=== PATIENT | female | born 1990 | race Caucasian/White ===

== ENCOUNTER 2023-03-04 09:18 | Emergency (ER) | payer OTHER, SELFPAY ==
[2023-03-04 09:24] VITALS: BP 121/64; BP 138/88; PULSE 63; PULSE 85; RESP 20; TEMP 36.2; TEMP 36.3; O2SAT 100; O2SAT 98
--- NOTE | 2023-03-04 09:55 | ED.URI ---
HPI - URI/Sore Throat General Chief Complaint: Upper Respiratory Infection Stated Complaint: Sore Throat/Cough Time Seen by Provider: 03/04/23 09:56 History of Present Illness HPI Narrative: 32-year-old female presents for complaint of sore throat, fatigue, decreased appetite over the last few days. Endorses some sinus congestion and drainage. Denies vomiting, diarrhea, fevers or chills. Not taking anything for symptoms. Denies sick contacts. Related Data Home Medications Medication Instructions Recorded Confirmed escitalopram oxalate 20 mg tablet mg 03/04/23 lamotrigine 200 mg tablet mg 03/04/23 levetiracetam 500 mg tablet mg PO 03/04/23 oxazepam 10 mg capsule mg 03/04/23 phentermine 11.25 mg-topiramate ER cap PO 03/04/23 69 mg capsule,[id number] mphas (Qsymia) propranolol 20 mg tablet mg 03/04/23 Allergies Allergy/AdvReac Type Severity Reaction Status Date / Time codeine Allergy Mild Other Verified 03/04/23 09:37 Review of Systems Review of Systems: CONSTITUTIONAL: reports fatigue Denies body aches, fever, chills, or sweats. EYES: Denies visual changes, redness, or discharge. ENT: Reports rhinorrhea, sore throat CARDIOVASCULAR: Denies chest pain, palpitations, or edema. RESPIRATORY: Denies dyspnea. GASTROINTESTINAL: Denies abdominal pain, nausea, vomiting, or diarrhea. SKIN: Denies rash, itching, or wounds. MUSCULOSKELETAL: Denies back pain, joint pain, or myalgia. NEUROLOGIC: Denies headache PMFSH Past Medical History Medical History (Updated 03/04/23 @ 10:03 by Ranjana Ramirez, [employer]) No pertinent past medical history Exam Narrative: GENERAL: well-appearing, no acute distress. EYES: conjunctivae clear ENT: Mucous membranes moist. TM pearly licona with normal light reflex bilaterally; no tragal tenderness. Oropharynx mildly erythematous Tonsils enlarged 2+ without exudate. No drooling, no hoarseness, no trismus, uvula midline. No tripod positioning, hot potato voice, or soft palate swelling. NECK: Supple. No lymphadenopathy CHEST: Clear to auscultation, breath sounds equal. No respiratory distress, speaks in full sentences. HEART: Regular rate and rhythm. No murmur heard. SKIN: Warm, dry, no rash. NEURO: Alert and oriented x3. Course Course Emergency Course: Patient is aware of diagnosis, understands and agrees to treatment plan. Anticipatory guidance given. Patient agrees to follow-up as directed and is aware of reasons to seek care at the emergency department. Portions of this record may have been created with voice recognition software Level of Care: Express Care Visit Vital Signs Vital signs: Vital Signs Temperature 97.1 F L 03/04/23 09:24 Pulse Rate 63 03/04/23 09:24 Respiratory Rate 20 03/04/23 09:24 Blood Pressure 121/64 03/04/23 09:24 Pulse Oximetry 98 03/04/23 09:24 Oxygen Delivery Room Air 03/04/23 09:24 Temperature 97.1 F L 03/04/23 09:24 Pulse Rate 85 03/04/23 09:24 Respiratory Rate 20 03/04/23 09:24 Blood Pressure 157/96 H 03/04/23 09:24 Pulse Oximetry 100 03/04/23 09:24 Oxygen Delivery Room Air 03/04/23 09:24 MDM - URI/Sore Throat MDM Narrative Medical decision making narrative: POS strep result reviewed with pt. Advise supportive treatments. Patient is appropriate for outpatient treatment and follow-up. Differential Diagnosis Differential diagnosis: Likely upper respiratory infection, viral infection and pharyngitis Lab Data Labs: Strep Screen Positive Group A Strep *(Reference Range: Negative)* Discharge Plan Discharge Clinical Impression: Strep pharyngitis Patient Disposition: Home, Self-Care Condition: Stable Instructions: Antibiotic Form, Strep Throat (ED) Additional Instructions: - Take the antibiotic as directed. Fever and sore throat typically resolve within one to three days. Most patients c
== END 2023-03-04 10:05 | disposition home or self-care (01) ==
PROVIDERS: Emergency Provider Nurse Practitioner Family
DX: J02.0 Streptococcal pharyngitis (principal)
CPT/HCPCS: 87880; 99213; G0463

== ENCOUNTER 2023-05-28 14:19 | Emergency (ER) | payer OTHER, SELFPAY ==
[2023-05-28 14:24] VITALS: BP 122/76; PULSE 70; RESP 18; TEMP 36.4; O2SAT 98
--- NOTE | 2023-05-28 14:29 | ED.URI ---
HPI - URI/Sore Throat General Chief Complaint: Upper Respiratory Infection Stated Complaint: Shortness of Breath/Chest Pain Time Seen by Provider: 05/28/23 14:33 Source: patient, RN notes reviewed and old records reviewed Mode of arrival: ambulatory Limitations: no limitations History of Present Illness HPI Narrative: 32 year year old female who presents to [facility] with complaints of having some shortness of breath last night and again this morning, cough, headache, just feels like she can't take a deep breath.Patient is laughing and talking in full sentences when she first arrived. Patient states that she has had history of bronchial asthma in the past and use to have an inhaler. Patient reports that she moved back from [facility] and since then her allergies are worse. Patient denies any temperatures, chills or sweats or any body aches, reports no ear pain,or sore throat.Patient reports that she has taken Ibuprofen and also taken some Sudafed. MD elicited complaint: cough, rhinorrhea, nasal congestion and other (short of breath) Pertinent past history: asthma (history bronchial asthma) Onset (ago): day(s) ( since last night) Severity: mild Able to tolerate fluids by mouth: Yes Treatments prior to arrival: ibuprofen and other (Sudafed) Related Data Home Medications Medication Instructions Recorded Confirmed escitalopram oxalate 20 mg tablet 20 mg PO DAILY 03/04/23 05/28/23 lamotrigine 200 mg tablet 200 mg PO BID 03/04/23 05/28/23 levetiracetam 500 mg tablet 500 mg PO BID 03/04/23 05/28/23 oxazepam 10 mg capsule 10 mg PO TID 03/04/23 05/28/23 propranolol 20 mg tablet 20 mg PO QID 03/04/23 05/28/23 pantoprazole 40 mg tablet,delayed 40 mg PO DAILY PRN Heartburn 05/28/23 05/28/23 release phentermine 15 mg capsule 15 mg PO DAILY 05/28/23 05/28/23 topiramate 25 mg tablet 25 mg PO BID 05/28/23 05/28/23 Allergies Allergy/AdvReac Type Severity Reaction Status Date / Time codeine AdvReac Mild Nausea and Verified 05/28/23 14:32 Vomiting Review of Systems Review of Systems: CONSTITUTIONAL: Denies malaise, chills, sweats, or fever. EYES: Denies visual changes, redness, or discharge. ENT: Reports rhinorrhea, congestion, no sinus pain,no otalgia and no sore throat. CARDIOVASCULAR: Reports no chest pain, palpitations, or edema. RESPIRATORY: Reports cough.?Associated episodes of dyspnea. GASTROINTESTINAL: Denies abdominal pain, nausea, vomiting, diarrhea SKIN: Denies rash or itching. MUSCULOSKELETAL: Denies myalgia. NEUROLOGIC: Reports headache. All systems reviewed & are unremarkable except as noted in HPI and below PMFSH Past Medical History Medical History (Updated 05/29/23 @ 13:33 by Maira Bond NP) Anxiety Hiatal hernia Juvenile myoclonic epilepsy Surgical History Surgical History (Updated 05/29/23 @ 13:27 by Maira Bond NP) History of cholecystectomy Previous section Social History Social History (Updated 05/29/23 @ 13:26 by Maira Bond NP) Smoking status: Never smoker Alcohol intake: current Alcohol use details: rare use Substance use type: does not use Gender identity (if verbalized by the patient): Female Comments At time of signature, agree with nursing past medical, surgical, social and family history. There is no relevant family history pertinent to the presenting complaint Exam Narrative: GENERAL: Well-appearing, well-nourished, and in no acute distress. HEAD: Normocephalic EYES: PERRLA, conjunctivae clear ENT: Nares clear, turbinates edematous and erythematous, clear discharge. Mucous membranes moist. TM pearly licona with dull light reflex bilaterally; no tragal tenderness. Oropharynx erythematous without lesions. Tonsils not enlarged and without exudate, no drooling, no hoarseness, no trismus, uvula midline. NECK: Supple. No lymphadenopathy CHEST: Clear to auscultation, breath sounds equal. No wheezing, rhonchi, rales
== END 2023-05-28 14:55 | disposition home or self-care (01) ==
PROVIDERS: Emergency Provider Registered Nurse
DX: J06.9 Acute upper respiratory infection, unspecified (principal); Z79.899 Other long term (current) drug therapy
CPT/HCPCS: 99213; G0463

== ENCOUNTER 2023-06-24 08:46 | Emergency (ER) | payer OTHER, SELFPAY ==
[2023-06-24 08:56] VITALS: BP 121/59; PULSE 88; RESP 20; TEMP 36.8; O2SAT 98
--- NOTE | 2023-06-24 08:56 | ED.URI ---
HPI - URI/Sore Throat General Chief Complaint: Upper Respiratory Infection Stated Complaint: Sore Throat Time Seen by Provider: 06/24/23 08:56 Source: patient, RN notes reviewed and old records reviewed Mode of arrival: ambulatory Limitations: no limitations History of Present Illness HPI Narrative: [age] year female who presents to [facility] with complaints of sore throat, runny nose with sinus congestion, and occasional cough for 3 day duration.Patient reports that she has no fevers, chills or sweats, denies any shortness of breath. Patient reports that she has had some cough at night with noted sinus congestion, drainage and facial pressure.Patient reports that she has been taking Ibuprofen, Mucinex, and also some Tessalon Perles. MD elicited complaint: sore throat, rhinorrhea and nasal congestion Pertinent past history: seasonal allergies and other (strep throat) Onset (ago): day(s) (3) Consistency: constant Severity: moderate Pain scale (0-10): 6 Able to tolerate fluids by mouth: Yes Exacerbating factors: swallowing Treatments prior to arrival: ibuprofen and other (Tessalon Perles and Mucinex) Related Data Home Medications Medication Instructions Recorded Confirmed escitalopram oxalate 20 mg tablet 20 mg PO DAILY 03/04/23 06/24/23 lamotrigine 200 mg tablet 200 mg PO BID 03/04/23 06/24/23 levetiracetam 500 mg tablet 500 mg PO BID 03/04/23 06/24/23 oxazepam 10 mg capsule 10 mg PO TID 03/04/23 06/24/23 propranolol 20 mg tablet 20 mg PO QID 03/04/23 06/24/23 pantoprazole 40 mg tablet,delayed 40 mg PO DAILY PRN Heartburn 05/28/23 06/24/23 release phentermine 15 mg capsule 15 mg PO DAILY 05/28/23 06/24/23 topiramate 25 mg tablet 25 mg PO BID 05/28/23 06/24/23 Allergies Allergy/AdvReac Type Severity Reaction Status Date / Time codeine AdvReac Mild Nausea and Verified 06/24/23 09:00 Vomiting Review of Systems Review of Systems: CONSTITUTIONAL: Denies malaise, chills, sweats, or fever. EYES: Denies visual changes, redness, or discharge. ENT: Reports rhinorrhea, congestion, sinus pain, nootalgia and positive sore throat. CARDIOVASCULAR: Denies chest pain, palpitations, or edema. RESPIRATORY: Reports some cough.? Denies dyspnea. GASTROINTESTINAL: Denies abdominal pain, nausea, vomiting, diarrhea SKIN: Denies rash or itching. MUSCULOSKELETAL: Denies myalgia. NEUROLOGIC: Denies headache. All systems reviewed & are unremarkable except as noted in HPI and below PMFSH Past Medical History Medical History Anxiety Hiatal hernia Juvenile myoclonic epilepsy Surgical History Surgical History History of cholecystectomy Previous section Social History Social History Smoking status: Never smoker Alcohol intake: current Alcohol use details: rare use Substance use type: does not use Gender identity (if verbalized by the patient): Female Comments At time of signature, agree with nursing past medical, surgical, social and family history. There is no relevant family history pertinent to the presenting complaint Exam Narrative: GENERAL: Well-appearing, well-nourished, and in no acute distress. HEAD: Normocephalic EYES: PERRLA, conjunctivae clear ENT: Nares clear, turbinates edematous and erythematous, clear discharge. Mucous membranes moist. TM pearly licona with dull light reflex bilaterally; no tragal tenderness. Oropharynx erythematous without lesions. Tonsils enlarged and without exudate, no drooling, no hoarseness, no trismus, uvula midline. NECK: Supple. No lymphadenopathy CHEST: Clear to auscultation, breath sounds equal. No wheezing, rhonchi, rales, or stridor. No respiratory distress, speaks in full sentences.SAO2 98% on room air HEART: Regular rate and rhythm. No murmur heard. SKIN: Warm,
== END 2023-06-24 09:25 | disposition home or self-care (01) ==
PROVIDERS: Emergency Provider Registered Nurse
DX: J06.9 Acute upper respiratory infection, unspecified (principal); J02.9 Acute pharyngitis, unspecified; F41.9 Anxiety disorder, unspecified
CPT/HCPCS: 87081; 87880; 99213; G0463

== ENCOUNTER 2023-08-18 14:04 | Emergency (ER) | payer MEDICAID, SELFPAY ==
--- NOTE | 2023-08-18 14:14 | ED.GENADULT ---
HPI - General Adult General Chief complaint: Upper Respiratory Infection Stated complaint: wheezing/coughing till throat sore Source: patient, RN notes reviewed and old records reviewed Mode of arrival: ambulatory Limitations: no limitations History of Present Illness HPI narrative: 32-year-old female presents to [facility] with complaint of cough, congestion this started 10 days ago. Patient states had Z-Joselito for when she had the flu that she started approximately 7 days ago. Patient states took as directed but is still not improving. Patient states he is worried because she has coughing fits the cause shortness of breath. Related Data Home Medications Medication Instructions Recorded Confirmed escitalopram oxalate 20 mg tablet 20 mg PO DAILY 03/04/23 08/18/23 lamotrigine 200 mg tablet 200 mg PO BID 03/04/23 08/18/23 levetiracetam 500 mg tablet 500 mg PO BID 03/04/23 08/18/23 oxazepam 10 mg capsule 10 mg PO TID 03/04/23 08/18/23 propranolol 20 mg tablet 20 mg PO QID 03/04/23 08/18/23 pantoprazole 40 mg tablet,delayed 40 mg PO DAILY PRN Heartburn 05/28/23 08/18/23 release phentermine 15 mg capsule 15 mg PO DAILY 05/28/23 08/18/23 topiramate 25 mg tablet 25 mg PO BID 05/28/23 08/18/23 dextroamphetamine-amphetamine 5 mg 1 tablet PO BID 08/18/23 08/18/23 tablet hydroxyzine HCl 25 mg tablet 25 mg PO Q6H PRN Anxiety 08/18/23 08/18/23 Allergies Allergy/AdvReac Type Severity Reaction Status Date / Time codeine AdvReac Mild Nausea and Verified 08/18/23 14:24 Vomiting Review of Systems Constitutional: Constitutional: Reports no additional constitutional complaints, Denies body ache(s), Denies chills, Denies fatigue, Denies fever(s) and Denies headache(s) Eyes: Eyes: Reports no additional eye complaints and Denies blurry vision ENT: Reports system reviewed and no additional complaints, except as documented, Denies vertigo, Denies dizziness, Denies ear discharge, Denies otalgia, Denies facial pain, Denies headache(s), Reports nasal congestion, Reports nasal discharge, Denies sinus pain, Denies sinus pressure and Denies sore throat Cardiovascular: Cardiovascular: Reports no additional cardiovascular complaints, Denies chest pain, Denies chest pain at rest, Denies rapid heart rate and Denies dyspnea Respiratory: Respiratory: Reports no additional respiratory complaints, Reports chest congestion, Reports cough, Denies pain on inspiration, Denies pain with cough and Denies dyspnea Gastrointestinal: Gastrointestinal: Denies abdominal pain, Denies diarrhea, Denies nausea and Denies vomiting Integumentary/Breasts: Skin/Breast: Denies rash Neurologic: Reports system reviewed and no additional complaints, except as documented, Denies vertigo, Denies dizziness and Denies headache(s) Endocrine: Endocrine: Denies fatigue PMFSH Past Medical History Medical History Anxiety Hiatal hernia Juvenile myoclonic epilepsy Surgical History Surgical History History of cholecystectomy Previous section Social History Social History Smoking status: Never smoker Alcohol intake: current Alcohol use details: rare use Substance use type: does not use Gender identity (if verbalized by the patient): Female Comments At the time of my signature, I reviewed and agree with the nursing past medical, surgical, social, and family history. There is no relevant family history pertinent to the patient complaint. Exam Const: General: cooperative, healthy appearing, no acute distress and well nourished Nutritional Appearance: well nourished Orientation/consciousness: patient oriented x3 Limitations: no limitations HENMT: Head: normal to inspection and normocephalic Ears: external ears normal, TM's normal bilaterally, mastoids normal and Abnormal EAC present Fa
[2023-08-18 14:15] VITALS: BP 122/71; PULSE 64; RESP 18; TEMP 36.7; O2SAT 100
== END 2023-08-18 14:30 | disposition home or self-care (01) ==
PROVIDERS: Emergency Provider Registered Nurse; PCP Physician Assistant
DX: J40 Bronchitis, not specified as acute or chronic (principal); F41.9 Anxiety disorder, unspecified; G40.B09 Juvenile myoclonic epilepsy, not intractable, without status epilepticus
CPT/HCPCS: 99213; G0463

== ENCOUNTER 2023-09-09 09:17 | Emergency (ER) | payer MEDICAID, SELFPAY ==
[2023-09-09 09:24] VITALS: BP 128/71; PULSE 57; RESP 16; TEMP 36.8; O2SAT 99
--- NOTE | 2023-09-09 09:48 | ED.GENADULT ---
HPI - General Adult General Chief complaint: Upper Respiratory Infection Stated complaint: throat/achey/fatigue Source: patient Mode of arrival: ambulatory Limitations: no limitations History of Present Illness HPI narrative: Patient presents for evaluation of sick symptoms since last night. Symptoms include sinus congestion, sore throat, right sided cervical lymphadenopathy and occasional cough. No fever, chills, nausea, vomiting, diarrhea. She took ibuprofen for her symptoms. She is currently caring for her stepfather who is currently on hospice. Related Data Home Medications Medication Instructions Recorded Confirmed escitalopram oxalate 20 mg tablet 20 mg PO DAILY 03/04/23 08/18/23 lamotrigine 200 mg tablet 200 mg PO BID 03/04/23 08/18/23 levetiracetam 500 mg tablet 500 mg PO BID 03/04/23 08/18/23 oxazepam 10 mg capsule 10 mg PO TID 03/04/23 08/18/23 propranolol 20 mg tablet 20 mg PO QID 03/04/23 08/18/23 pantoprazole 40 mg tablet,delayed 40 mg PO DAILY PRN Heartburn 05/28/23 08/18/23 release phentermine 15 mg capsule 15 mg PO DAILY 05/28/23 08/18/23 topiramate 25 mg tablet 25 mg PO BID 05/28/23 08/18/23 dextroamphetamine-amphetamine 5 mg 1 tablet PO BID 08/18/23 08/18/23 tablet hydroxyzine HCl 25 mg tablet 25 mg PO Q6H PRN Anxiety 08/18/23 08/18/23 Allergies Allergy/AdvReac Type Severity Reaction Status Date / Time codeine AdvReac Mild Nausea and Verified 08/18/23 14:24 Vomiting Review of Systems Review of Systems: CONSTITUTIONAL: Denies fever, chills, or sweats. EYES: Denies visual changes, redness, or discharge. ENT: Reports sinus congestion, sore throat, right-sided cervical lymphadenopathy. CARDIOVASCULAR: Denies chest pain, palpitations, or edema. RESPIRATORY: Reports occasional cough. Denies SOB GASTROINTESTINAL: Denies abdominal pain, nausea, vomiting, or diarrhea. GENITOURINARY: Denies dysuria or hematuria. SKIN: Denies rash or itching. MUSCULOSKELETAL: Denies back pain, joint pain, or myalgia. NEUROLOGIC: Denies headache, numbness, dizziness, or weakness. PSYCHIATRIC: Denies anxiety or depression. [facility] Past Medical History Medical History Anxiety Hiatal hernia Juvenile myoclonic epilepsy Surgical History Surgical History History of cholecystectomy Previous section Family History Family History Mother Family history non-contributory Social History Social History Smoking status: Never smoker Alcohol intake: current Alcohol use details: rare use Substance use type: does not use Gender identity (if verbalized by the patient): Female Exam Narrative: GENERAL: Well-appearing, well-nourished, and in no acute distress. HEAD: Normocephalic, atraumatic. EYES: PERRLA and EOMI. ENT: Nares clear, no rhinorrhea or epistaxis. Mucous membranes moist. Oropharynx without tonsillar hypertrophy exudate or other lesions. Mild tympanic membrane erythema bilaterally NECK: Supple. No adenopathy or masses. No carotid bruits or JVD CHEST: Clear to auscultation. No respiratory distress. No wheezes rales or rhonchi HEART: Regular rate and rhythm. No murmur heard. Normal peripheral pulses. ABDOMEN: Soft, nontender, nondistended, normal active bowel sounds. EXTREMITIES: Normal range of motion. No edema. SKIN: Warm, dry, no rash. NEURO: No focal deficits. Alert and oriented x3. PSYCH: Normal mood and affect. Course Course Emergency Course: This is a 32-year-old female who presented for evaluation of sick symptoms. Strep here positive. Influenza and COVID negative. Will treat with amoxicillin. Increase hydration. Provided with education regarding infection transmission. Follow up with primary provider. Go to the ER for worse
== END 2023-09-09 10:15 | disposition home or self-care (01) ==
PROVIDERS: Emergency Provider Nurse Practitioner; PCP Physician Assistant
DX: J02.0 Streptococcal pharyngitis (principal); Z20.822 Contact with and (suspected) exposure to COVID-19; F41.9 Anxiety disorder, unspecified; G40.B09 Juvenile myoclonic epilepsy, not intractable, without status epilepticus
CPT/HCPCS: 87426; 87804; 87880; 99213; G0463

== ENCOUNTER 2023-10-20 08:06 | Emergency (ER) | payer BC, SELFPAY ==
[2023-10-20 08:14] VITALS: BP 118/64; PULSE 55; RESP 20; TEMP 36.7; O2SAT 100
--- NOTE | 2023-10-20 08:14 | ED.URI ---
HPI - URI/Sore Throat General Chief Complaint: Upper Respiratory Infection Stated Complaint: Cough Time Seen by Provider: 10/20/23 08:21 Source: patient, RN notes reviewed and old records reviewed Mode of arrival: ambulatory Limitations: no limitations History of Present Illness HPI Narrative: 33 year old female who presents to [facility] care with complaints of diarrhea and some nausea and vomiting on Friday and Friday and nasal drainage. Patient reports those symptoms have resolved except for the nasal congestion and drainage and started with progressively worsening cough, Ptient reports no shortness of breath or any fevers, states that her cough is worse at night. Patient has taken Robitussin and used OTC nasal spray for her symptoms. MD elicited complaint: cough, rhinorrhea and nasal congestion Pertinent past history: other (bronchitis) Severity: mild Able to tolerate fluids by mouth: Yes Treatments prior to arrival: other (Robitussin , nasal spray) Related Data Home Medications Medication Instructions Recorded Confirmed escitalopram oxalate 20 mg tablet 20 mg PO DAILY 03/04/23 08/18/23 lamotrigine 200 mg tablet 200 mg PO BID 03/04/23 08/18/23 levetiracetam 500 mg tablet 500 mg PO BID 03/04/23 08/18/23 oxazepam 10 mg capsule 10 mg PO TID 03/04/23 08/18/23 propranolol 20 mg tablet 20 mg PO QID 03/04/23 08/18/23 pantoprazole 40 mg tablet,delayed 40 mg PO DAILY PRN Heartburn 05/28/23 08/18/23 release phentermine 15 mg capsule 15 mg PO DAILY 05/28/23 08/18/23 topiramate 25 mg tablet 25 mg PO BID 05/28/23 08/18/23 dextroamphetamine-amphetamine 5 mg 1 tablet PO BID 08/18/23 08/18/23 tablet hydroxyzine HCl 25 mg tablet 25 mg PO Q6H PRN Anxiety 08/18/23 08/18/23 Allergies Allergy/AdvReac Type Severity Reaction Status Date / Time codeine AdvReac Mild Nausea and Verified 08/18/23 14:24 Vomiting Review of Systems Review of Systems: CONSTITUTIONAL: Denies malaise, chills, sweats, or fever. EYES: Denies visual changes, redness, or discharge. ENT: Reports rhinorrhea, congestion, sinus pain,no otalgia and no sore throat. CARDIOVASCULAR: Denies chest pain, palpitations, or edema. RESPIRATORY: Reports cough.? Denies dyspnea. GASTROINTESTINAL: Denies abdominal pain, nausea, vomiting, diarrhea earlier but has resolved SKIN: Denies rash or itching. MUSCULOSKELETAL: Denies myalgia. NEUROLOGIC: Denies headache. All systems reviewed & are unremarkable except as noted in HPI and below PMFSH Past Medical History Medical History Anxiety Hiatal hernia Juvenile myoclonic epilepsy Surgical History Surgical History History of cholecystectomy Previous section Family History Family History Mother Family history non-contributory Social History Social History Smoking status: Never smoker Alcohol intake: current Alcohol use details: rare use Substance use type: does not use Gender identity (if verbalized by the patient): Female Comments At time of signature, agree with nursing past medical, surgical, social and family history. There is no relevant family history pertinent to the presenting complaint Exam Narrative: GENERAL: Well-appearing, well-nourished, and in no acute distress. HEAD: Normocephalic EYES: PERRLA, conjunctivae clear ENT: Nares clear, turbinates edematous and erythematous, clear discharge. Mucous membranes moist. TM pearly licona with dull light reflex bilaterally; no tragal tenderness. Oropharynx erythematous without lesions. Tonsils not enlarged and without exudate, no drooling, no hoarseness, no trismus, uvula midline.post nasal drainage NECK: Supple. No lymphadenopathy CHEST: Clear to auscultation, breath sounds equal. No wheezing, rhonchi,
== END 2023-10-20 08:38 | disposition home or self-care (01) ==
PROVIDERS: Emergency Provider Registered Nurse; PCP Physician Assistant
DX: J06.9 Acute upper respiratory infection, unspecified (principal); F41.9 Anxiety disorder, unspecified; G40.B09 Juvenile myoclonic epilepsy, not intractable, without status epilepticus
CPT/HCPCS: 99213; G0463

== ENCOUNTER 2023-11-06 14:24 | Emergency (ER) | payer OTHER, BC, SELFPAY ==
[2023-11-06 14:32] VITALS: BP 106/69; PULSE 72; RESP 16; TEMP 36.8; O2SAT 100
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
== END 2023-11-06 15:10 | disposition short-term general hospital (02) ==
PROVIDERS: Emergency Provider Nurse Practitioner Family; PCP Physician Assistant
DX: S06.0X0A Concussion without loss of consciousness, initial encounter (principal); V44.5XXA Car driver injured in collision with heavy transport vehicle or bus in traffic accident, initial encounter; S13.4XXA Sprain of ligaments of cervical spine, initial encounter; H53.8 Other visual disturbances; S16.1XXA Strain of muscle, fascia and tendon at neck level, initial encounter; F41.9 Anxiety disorder, unspecified; G40.B09 Juvenile myoclonic epilepsy, not intractable, without status epilepticus
CPT/HCPCS: 99212; G0463

== ENCOUNTER 2023-11-06 16:14 | Emergency (ER) | payer OTHER, BC, SELFPAY ==
[2023-11-06 16:27] VITALS: BP 112/81; PULSE 69; RESP 18; TEMP 36.6; O2SAT 100
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
== END 2023-11-06 17:48 | disposition home or self-care (01) ==
LOC: ANHED 17:39
PROVIDERS: Emergency Provider Physician Assistant; PCP Physician Assistant
DX: S13.4XXA Sprain of ligaments of cervical spine, initial encounter (principal); S06.0X0A Concussion without loss of consciousness, initial encounter; G40.B09 Juvenile myoclonic epilepsy, not intractable, without status epilepticus; F41.9 Anxiety disorder, unspecified; Z90.49 Acquired absence of other specified parts of digestive tract; Z79.84 Long term (current) use of oral hypoglycemic drugs; V44.5XXA Car driver injured in collision with heavy transport vehicle or bus in traffic accident, initial encounter
CPT/HCPCS: 99282

== ENCOUNTER 2023-11-11 14:04 | Emergency (ER) | payer OTHER, BC, SELFPAY ==
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
[2023-11-11 14:24] VITALS: BP 115/72; PULSE 63; RESP 18; TEMP 36.3; O2SAT 95
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
[2023-11-11 16:04] LABS: Basophils Percent Auto 0.4 % (0.2-1.2); Eosinophils Absolute Auto 0.1 K/mm3 (0-0.3); Eosinophils Percent Auto 1.1 % (0-4.4); Hematocrit 39.4 % (37.0-47.0); Hemoglobin 13.2 g/dL (12.0-15.0); Immature Granulocyte Absolute 0.02 K/mm3 (0.00-0.031); Immature Granulocyte Percent A 0.2 % (0-0.5); Lymphocytes Absolute Auto 2.98 K/mm3 (0.9-3.2); Lymphocytes Percent Auto 36.8 % (18.3-44.2); Mean Corpuscular HGB Conc 33.5 g/dl (32-36); Mean Corpuscular Hemoglobin 32.4 pg (26-34); Mean Corpuscular Volume 96.6 fl (80-100); Mean Platelet Volume 9.7 fl (7.4-10.4); Monocytes Absolute Auto 0.5 K/mm3 (0.1-0.6); Monocytes Percent Auto 5.8 % (2.6-8.5); Neutrophils Absolute Auto 4.5 K/mm3 (1.3-6.7); Neutrophils Percent Auto 55.7 % (45.5-73.1); Platelet Count Result 320 k/mm3 (150-375); Red Blood Count 4.08 M/mm3 (4.2-5.4); Red Cell Distribution Width 13.1 % (11.5-14.5); White Blood Count 8.1 K/mm3 (4.5-10.0)
[2023-11-11 16:18] LABS: Alanine Aminotransferase 15 U/L (6-35); Albumin Level 4.2 g/dL (3.5-5.1); Alkaline Phosphatase 47 U/L (38-126); Anion Gap 7 mmol/L (4-12); Aspartate Amino Transferase 19 U/L (14-36); Bilirubin,Total 0.7 mg/dL (0.2-1.3); Blood Urea Nitrogen 13 mg/dL (7-17); Calcium 9.4 mg/dL (8.4-10.2); Carbon Dioxide 22 mmol/L (22-30); Chloride 107 mmol/L (98-107); Estimated Glomerular Filt Rate > 60; Glucose 101 mg/dL (65-110); Lipase 77 U/L (23-300); Potassium 4.2 mmol/L (3.4-5.0); Sodium 136 mmol/L (137-145)
[2023-11-11 16:25] LABS: Add Urine Microscopic? NO; Appearance Urine Clear (Clear); Bilirubin Urine 1+ (Negative); Blood Urine Negative (Negative); Glucose Urine UA Negative (Negative); Ketones Urine Negative (Negative); Leukocyte Esterase Ur Negative LEU/UL (Negative); Nitrate Urine Negative (Negative); Protein Urine Negative (Negative)
--- NOTE | 2023-11-11 16:30 | PC.NURSE ---
Pt denies any c/o h/a at this time. States is feeling better & doesn't want to stay. Dr. Wilkerson spoke with pt.
[2023-11-11 16:31] LABS: Color Urine Yellow (Yellow); Specific Grav Ur >= 1.030 (1.001-1.035)
[2023-11-11 16:51] VITALS: BP 110/70; PULSE 68; RESP 18; TEMP 36.6; O2SAT 100
== END 2023-11-11 17:00 | disposition home or self-care (01) ==
LOC: ANHED 18:16
PROVIDERS: Nurse Practitioner Family; Emergency Provider Emergency Medicine; PCP Physician Assistant
DX: S06.0XAA Concussion with loss of consciousness status unknown, initial encounter (principal); G40.B09 Juvenile myoclonic epilepsy, not intractable, without status epilepticus; F41.9 Anxiety disorder, unspecified; Z90.49 Acquired absence of other specified parts of digestive tract; M47.816 Spondylosis without myelopathy or radiculopathy, lumbar region; V44.5XXA Car driver injured in collision with heavy transport vehicle or bus in traffic accident, initial encounter
CPT/HCPCS: 36415; 70450; 71111; 72131; 80053; 81003; 81025; 83690; 85025; 99284

== ENCOUNTER 2024-06-13 17:38 | Emergency (ER) | payer SELFPAY ==
[2024-06-13 17:47] VITALS: BP 111/60; PULSE 62; RESP 16; TEMP 36.7; O2SAT 99
--- NOTE | 2024-06-13 18:01 | ED.URI ---
HPI - URI/Sore Throat General Chief Complaint: Upper Respiratory Infection Stated Complaint: runny nose/cough/rattling chest Time Seen by Provider: 06/13/24 18:01 Source: patient, RN notes reviewed and old records reviewed Mode of arrival: ambulatory Limitations: no limitations History of Present Illness HPI Narrative: 33year old female who presents to [facility] care with complaints of runny nose, cough, rattling chest for one week duration. Patient reports that last night she started with productive cough of light yellow phlegm mucous and body aches and fatigue. Patient reports that she was diagnosed with left ear infection on 06/09 and was put on Amoxicillin which she has been taking and still persists. Patient has also been taking Ibuprofen and using cough drops. MD elicited complaint: cough, rhinorrhea, nasal congestion and other (left ear pain) Pertinent past history: other (diagnosed eart infection 06/09/2024 persists, also sore throat, runny nose, cough, fatigue and body aches.) Onset (ago): week(s) (one week start of symptoms) Severity: moderate Able to tolerate fluids by mouth: Yes Treatments prior to arrival: other (amoxicillin. Ibuprofen, cough drops) Related Data Home Medications Medication Instructions Recorded Confirmed escitalopram oxalate 20 mg tablet 20 mg PO DAILY 03/04/23 06/13/24 lamotrigine 200 mg tablet 200 mg PO BID 03/04/23 06/13/24 levetiracetam 500 mg tablet 500 mg PO BID 03/04/23 06/13/24 oxazepam 10 mg capsule 10 mg PO TID 03/04/23 06/13/24 propranolol 20 mg tablet 20 mg PO QID 03/04/23 06/13/24 pantoprazole 40 mg tablet,delayed 40 mg PO DAILY PRN Heartburn 05/28/23 06/13/24 release topiramate 25 mg tablet 25 mg PO BID 05/28/23 06/13/24 dextroamphetamine-amphetamine 5 mg 1 tablet PO BID 08/18/23 06/13/24 tablet hydroxyzine HCl 25 mg tablet 25 mg PO Q6H PRN Anxiety 08/18/23 06/13/24 metformin 500 mg tablet,extended 500 mg PO BID 11/06/23 06/13/24 release 24 hr norethindrone 1 mg-ethinyl 1 tablet PO DAILY 11/06/23 06/13/24 estradiol 10 mcg (24)-iron 10 mcg(2) tablet (Lo Loestrin Fe) amoxicillin 875 mg tablet 875 mg PO BID 06/13/24 06/13/24 oxazepam 10 mg capsule See Rx Instructions .Route .COMPLEX 06/13/24 06/13/24 Allergies Allergy/AdvReac Type Severity Reaction Status Date / Time codeine AdvReac Mild Nausea and Verified 06/13/24 18:07 Vomiting Review of Systems Review of Systems: CONSTITUTIONAL: Reports malaise,no fevers chills or sweats, reports fatigue EYES: Denies visual changes, redness, or discharge. ENT: Reports rhinorrhea, congestion,no sinus pain,left otalgia and positive for sore throat. CARDIOVASCULAR: Denies chest pain, palpitations, or edema. RESPIRATORY: Reports cough.? Denies dyspnea. GASTROINTESTINAL: Denies abdominal pain, nausea, vomiting, diarrhea SKIN: Denies rash or itching. MUSCULOSKELETAL: reports myalgia. NEUROLOGIC: Denies headache. All systems reviewed & are unremarkable except as noted in HPI and below PMFSH Past Medical History Medical History Anxiety Hiatal hernia Juvenile myoclonic epilepsy Surgical History Surgical History History of cholecystectomy Previous section Family History Family History Mother Family history non-contributory Social History Social History Smoking status: Never smoker Alcohol intake: current Alcohol use details: rare use Substance use type: does not use Gender identity (if verbalized by the patient): Female Comments At time of signature, agree with nursing past medical, surgical, social and family history. There is no relevant family history pertinent to the presenting complaint Exam Narrative: GENERAL: Well-appearing, well-nourished, and in no acute distress. HEAD: Normocephalic EYES: PERRLA, conjunctivae clear ENT: Nares clear, turbinates edematous and erythematous, yellow discharge. Mucous membranes moist.Left TM red and bulging, Right TM pearly licona with dull light reflex; no tragal tenderness. Oropharynx erythematous without lesions. Tonsils not enlarged and without exudate, no drooling, no hoarseness, no trismus, uvula midline.post nasal drainage NECK: Supple. No lymphadenopathy CHEST: Clear to auscultation, breath sounds equal. No wheezing, rhonchi, rales, or stridor. No respiratory distress, speaks in full sentences.productive cough SAO2 99% on room air HEART: Regular rate and rhythm. No murmur heard. SKIN: Warm, dry, no rash. NEURO: Alert and oriented x3. PSYCH: Normal mood and affect Course Course Emergency Course: Patient is aware of diagnosis, understands and agrees to treatment plan.? Anticipatory guidance given.? Patient agrees to follow-up as directed and is aware of reasons to seek care at the emergency department. Portions of this record may have been created with voice recognition software Level of Care: Express Care Visit Vital Signs Vital signs: Vital Signs Temperature 36.7 C 06/13/24 17:47 Pulse Rate 62 06/13/24 17:47 Respiratory Rate 16 06/13/24 17:47 Blood Pressure 111/60 06/13/24 17:47 Pulse Oximetry 99 06/13/24 17:47 Oxygen Delivery Room Air 06/13/24 17:47 Temperature 36.7 C 06/13/24 17:47 Pulse Rate 62 06/13/24 17:47 Respiratory Rate 16 06/13/24 17:47 Blood Pressure 111/60 06/13/24 17:47 Pulse Oximetry 99 06/13/24 17:47 Oxygen Delivery Room Air 06/13/24 17:47 Reviewed MDM - URI/Sore Throat MDM Narrative Medical decision making narrative: Differential diagnosis considered: Gonsalves virus, strep pharyngitis, allergic rhinitis, upper respiratory tract infection, sinusitis, rhinosinusitis, nasopharyngitis. viral pharyngitis, otitis media, otitis externa, pneumonia, bronchitis, viral cough syndrome, viral syndrome, and influenza.? Exam findings show no acute concerns or changes; patient is non-toxic appearing and is in no distress.? Patient is appropriate for outpatient treatment and follow-up. Differential Diagnosis Differential diagnosis: Likely upper respiratory infection, otitis media, viral infection, influenza and other (CoVID, cough) Medical Records Attestation: I reviewed the patient's medical records. Lab Data Attestation: I reviewed the patient's lab results. Lab results narrative: COVID antigen negative, Influenza A negative, Influenza B negative Labs: Lab Results 06/13/24 Range/Units 18:05 POC Influenza A Ag Negative (Negative) POC Influenza B Ag Negative (Negative) POC SARS CoV-2 Ag Negative (Negative) Critical Care Time Critical Care Time Critical Care Time: No Discharge Plan Discharge Clinical Impression: Left otitis media, Upper respiratory infection, Acute cough Patient Disposition: Home, Self-Care Condition: Stable Instructions: Antibiotic Form, Ear Infection (GEN), Acute Cough (ED) Additional Instructions: Increase fluids especially juices and water Otbm-uwg-[id number] cough and cold medicine of your choice for your symptoms Tylenol or ibuprofen for any fever pain Zyrtec Claritin or Radha daily Continue your inhaler/nebulizer as directed Steroids as directed--take with food heat to the face 20-30 minutes 4-6 times a day for pain Salt water gargles, throat lozenges or throat sprays as desired Augmentin as prescribed stop the amoxicillin If your symptoms persist, change or worsen significantly before you can contact your personal physician then please, without delay, go to the emergency department for further evaluation. Follow-up with PCP in 7-10 days or sooner if needed Prescriptions: New amoxicillin-pot clavulanate 875-125 mg tablet 1 tablet PO Q12H Qty: 14 0RF prednisone 20 mg tablet 20 mg PO BID Qty: 10 0RF No Action pantoprazole 40 mg tablet,delayed release (DR/EC) 40 mg PO DAILY PRN (Reason: Heartburn) topiramate 25 mg tablet 25 mg PO BID oxazepam 10 mg capsule 10 mg PO TID lamotrigine 200 mg tablet 200 mg PO BID levetiracetam 500 mg tablet 500 mg PO BID propranolol 20 mg tablet 20 mg PO QID escitalopram oxalate 20 mg tablet 20 mg PO DAILY dextroamphetamine-amphetamine 5 mg tablet 1 tablet PO BID hydroxyzine HCl 25 mg tablet 25 mg PO Q6H PRN (Reason: Anxiety) fexofenadine [Radha Allergy] 180 mg tablet 180 mg PO DAILY Qty: 20 0RF Lo Loestrin Fe 1 mg-10 mcg (24)/10 mcg (2) tablet 1 tablet PO DAILY metformin 500 mg tablet extended release 24 hr 500 mg PO BID oxazepam 10 mg capsule See Rx Instructions .ROUTE .COMPLEX Rx Instructions: as prescribed amoxicillin 875 mg tablet 875 mg PO BID Patient Comments: prescribed 06/09 Follow-up/Referrals: Jayden Diallo MD [Primary Care Provider] - Stand Alone Forms: Work/School Release IP Time of Disposition: 18:26 Quality Ledbetter Coma Scale Eyes: Open Verbal: Oriented and Alert Motor: Follows Commands Ledbetter Coma Total Score: 15
[2024-06-13 18:23] LABS: EDCOVIDSCREEN Negative (Negative); EDINFLUASCREEN Negative (Negative); EDINFLUBSCREEN Negative (Negative)
== END 2024-06-13 18:30 | disposition home or self-care (01) ==
PROVIDERS: Emergency Provider Registered Nurse; PCP Emergency Medicine
DX: H66.92 Otitis media, unspecified, left ear (principal); J06.9 Acute upper respiratory infection, unspecified; R05.1 Acute cough; Z20.822 Contact with and (suspected) exposure to COVID-19; G40.B09 Juvenile myoclonic epilepsy, not intractable, without status epilepticus; F41.9 Anxiety disorder, unspecified
CPT/HCPCS: 87426; 87804; 99213; G0463

== ENCOUNTER 2025-04-10 16:00 | Emergency (ER) | payer OTHER, SELFPAY ==
--- OUTSIDE RECORDS SUMMARY | 2023-10-16 06:00 | XMS_ITS ---
Author Organization [facility] Address [address] [place] [address] Care Team Providers Care Estate Conservator Name Role Phone Ami Fong Primary Care Provider [phone] REASON FOR VISIT New Patient Psych Eval Encounters Encounter Location Date Provider Diagnosis [address] [address] 10/16/2023 Ami Fong Plan Of Treatment No Information Progress Notes * Vipul STORYOB:1990 (34 yo M)Acc No.[id number]:10/16/2023 UNLOCKED PROGRESS NOTE Patient: Marleny BALDWIN Provider: Candida Fong MSN, CARPENTER'S ASSISTANT-BC, PMHNP-BC :1990 A ge:33 Y S ex:Male Date:10/16/2023 Address:[address] [place], [place] [id number] Subjective: * Chief Complaints: * 1 . New Patient Psych Eval. * Medical History: Objective: * Vitals: Assessment: Plan: * Treatment: * * Electronic signature of Ami Fong , [id number] on 04/10/2025 at 04:05 PM CDT Sign off status: Pending * Provider: Candida Fong, MSN, CARPENTER'S ASSISTANT-BC, PMHNP-BC Date: 10/16/2023 Generated for Moises ng/Fabritg/eTransmitting on: 0 04/10/2025 04:05 PM CDT
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
--- OUTSIDE RECORDS SUMMARY | 2025-04-10 16:05 | XMS_ITS | Clinical Summary ---
Author Organization [facility] Address [address] [place] [address] Care Team Providers Care Best Second Jobs Name Role Phone Jayden Diallo MD Primary Care Provider [phone] Allergies Active Allergy Reactions Criticality Noted Date Comments Codeine Nausea & Vomiting Reaction: NAUSEA, Medications No known medications Active Problems Problem Noted Date Diagnosed Date Epilepsy 03/30/2015 Overview (10/19/2016): Epilepsy Surgical History Surgery Date Site/Laterality Comments SECTION Medical History Medical History Date Comments Epilepsy (HCC) Epilepsy Family History Medical History Relation Name Comments Hypertension Father Hypertension; Atrial fibrillation Maternal Grandmother Atrial fibrillation; Heart attack Other Myocardial infa rction; Heart failure Paternal Grandmother Conges tive heart failure; Relation Name Status Comments Father Maternal Grandmother Other Paternal Grandmother Social History Tobacco Use Types Packs/Day Years Used Date Smoking Tobacco: Former Alcohol Use Standard Drinks/Week Comments Yes 0 (1 standard drink = 0.6 oz pur e alcohol) Comments Unknown Sex and Gender Information Value Date Recorded Sex Assigned at Not on file Legal Sex Female 12:46 AM RAILROAD DISPATCHER Gender Identity Not on file Sexual Orientation Not on file Obstetrics History Last Filed Vital Signs Vital Sign Reading Time Taken Comments Blood Pressure 105/62 06/09/2024 4:37 PM RAILROAD DISPATCHER Pulse 60 06/09/2024 4:37 PM RAILROAD DISPATCHER Temperature 36.8 C (98.2 F) 06/09/2024 4:37 PM RAILROAD DISPATCHER Respiratory Rate 20 06/09/2024 4:37 PM RAILROAD DISPATCHER Oxygen Saturation 99% 06/09/2024 4:37 PM RAILROAD DISPATCHER Inhaled Oxygen Concentration - - Weight 110.2 kg (242 lb 14.4 oz) 06/09/2024 4:37 PM RAILROAD DISPATCHER Height 71.1 cm (2' 4) 06/09/2024 4:37 PM RAILROAD DISPATCHER Body Mass Index 217.83 06/09/2024 4:37 PM RAILROAD DISPATCHER Plan of Treatment Health Maintenance Due Date Last Done Comments Cervical Cancer Screening 1988 Depression Screening 1988 Hepatitis C Screening 1988 Varicella Vaccines (1 of 2 - 13+ 2-dose series) 2001 Hepatitis B Screening 2006 Regular Well Visit/Exam 18-64 2006 HPV Vaccines (1 - 3-dose SCD M series) 09/20/2015 DTaP/Tdap/Td Vaccine (3 - Td or Tdap) 11/24/2024 11/24/2014, 07/14/2014 Covid-19 Vaccine (2 - 2024-2 6 season) 2025 11/12/2020 Influenza Vaccine (#1) 2025 9, 06/29/2015 Pneumococcal vaccine <65 Aged Out No longer eligible based on patient's age to complete this topic Insurance IDPA Care Teams Best Second Jobs Relationship Specialty Start Date End Date Jayden Diallo MD [address] [place] [address] PCP - General Family Medicine 06/09/24
--- OUTSIDE RECORDS SUMMARY | 2025-04-10 16:05 | XMS_ITS | Encounter Summary ---
Author Organization [facility] Address [address] [place] [address] Phone Care Team Providers Care Rural Mail Contractor Name Role Phone Sherie Wright Primary Care Pro vider Marguerite Ponce INFORMATION TECHNOLOGY ADVISOR, GOVERNMENT PROGRAM MANAGER Unavailable + [phone] Reason for Visit * Reason Comments Medication Refill Encounter Details Date Type Department Care Team (Late st Contact Info) Description 07/23/2023 Refill [facility] - Internal Medicine - [place] [address] [place] [id number] Sherie Wright, [facility] [address] [place] [address] Medication Refill Social History Tobacco Use Types Packs/Day Years Used Date Smoking Tobacco: Former Cigarettes Smokeless Tobacco: Never Alcohol Use Standard Drinks/Week Comments Yes 0 (1 standard drink = 0.6 oz pur e alcohol) [facility] Utilities Answer Date Recorded In the past 12 months has [employer], gas, oil, or water [employer] threatened to shut off services in your home? No 07/16/2023 Social Connection and Isolation Panel Answer Date Recorded In a typical week, how many times do you talk on the phone with family, friends, or neighbors? More than three times a week 07/16/2023 How often do you get togethe r with friends or relatives? Once a week 07/16/2023 How often do you attend [facility] or congregational services? More than 4 times per year 07/16/2023 Do you belong to any clubs o r organizations such as quaker groups, unions, fraternal or athletic groups, or school groups? No 07/16/2023 How often do you attend meet ings of the clubs or organizations you belong to? Never 07/16/2023 Are you , , di vorced, , never , or living with a partner? Never 07/16/2023 AUDIT-C Answer Date Recorded Q1: How often do you have a drink containing alc ohol? Monthly or less 07/16/2023 Q2: How many drinks containi ng alcohol do you have on a typical day when you are drinking? 1 or 2 07/16/2023 Q3: How often do you have si x or more drinks on one occasion? Never 07/16/2023 Overall Financial Resource Strain (CARDIA) Answe r Date Recorded How hard is it for you to pa y for the very basics like food, housing, medical care, and heating? Somewhat hard 07/16/2023 [facility] - Occupational Stress Questionnaire Answer Date Recorded Do you feel stress - tense, restless, nervous, or anxious, or unable to sleep at night because your mind is troubled all the time - these days? To some extent 07/16/2023 Exercise Vital Sign Answer Date Recorde d On average, how many days pe r week do you engage in moderate to strenuous exercise (like a brisk walk)? 3 days 07/16/2023 On average, how many minutes do you engage in exercise at this level? 30 min 07/16/2023 Hunger Vital Sign Answer Date Recorded Within the past 12 months, y ou worried that your food would run out before you got the money to buy more. Never true 07/16/19 24 Within the past 12 months, t he food you bought just didn't last and you didn't have money to get more. Never true 07/16/2023 PRAPARE - Transportation Answer Date Re corded In the past 12 months, has l ack of transportation kept you from medical appointments or from getting medications? No 09/2023 In the past 12 months, has l ack of transportation kept you from meetings, work, or from getting things needed for daily living? No 07/16/2023 Housing Stability Vital Sign Answer Josue e Recorded In the last 12 months, was t here a time when you were not able to pay the mortgage or rent on time? No 07/16/2023 In the last 12 months, how many places have you lived? 1 07/16/2023 In the last 12 months, was t here a time when you did not have a steady place to sleep or slept in a care home (including now)? No 07/16/2023 Comments No Sex and Gender Information Value Date Recorded Sex Assigned at Female 07/04/2023 10:09 AM CROCHET MACHINE OPERATOR Legal Sex Female 1:54 PM CROCHET MACHINE OPERATOR Gender Identity Female 07/04/2023 10:09 AM CROCHET MACHINE OPERATOR Sexual Orientation Straight 07/04/2023 10 :09 AM CROCHET MACHINE OPERATOR documented as of this encounter Plan of Treatment Not on file documented as of this encounter Visit Diagnoses Not on filedocumented in this encounter Additional Health Concerns Infection Onset Date Last Indicated Resolved Time COVID - 19 Confirmed 07/04/2023 07/04/2023 024 12:16 AM CROCHET MACHINE OPERATOR documented as of this encounter Care Teams Rural Mail Contractor Relationship Specialty Start Date End Date Sherie Wright, PAC PCP - General Physician Pedodontist 07/04/23 04/14/24 Marguerite Ponce, INFORMATION TECHNOLOGY ADVISOR, GOVERNMENT PROGRAM MANAGER [address] [place] [address] Nurse Practitioner Advanced Practice Nurse 07/28/23 documented as of this encounter
--- OUTSIDE RECORDS SUMMARY | 2025-04-10 16:05 | XMS_ITS | Encounter Summary ---
Author Organization [facility] Address [address] [place] [address] Phone Care Team Providers Care Yard Jacker Name Role Phone Sherie Wright Primary Care Pro vider Marguerite Ponce PLANT OPERATIONS MANAGER, GM/SVP GLOBAL PUBLISHER BUSINESS Unavailable + [phone] Reason for Visit * Reason Comments Medication Refill Encounter Details Date Type Department Care Team (Late st Contact Info) Description 11/03/2023 Refill [facility] Medical Group - Internal Medicine - [place] [address] [place] [id number] Sherie Wright, [facility] [address] [place] [address] Medication Refill Social History Tobacco Use Types Packs/Day Years Used Date Smoking Tobacco: Former Cigarettes Smokeless Tobacco: Never Alcohol Use Standard Drinks/Week Comments Yes 0 (1 standard drink = 0.6 oz pur e alcohol) [facility] Utilities Answer Date Recorded In the past 12 months has [employer], gas, oil, or water [employer] threatened to shut off services in your home? No 07/16/2023 Social Connection and Isolation Panel Answer Date Recorded In a typical week, how many times do you talk on the phone with family, friends, or neighbors? More than three times a week 07/16/2023 How often do you get togethe r with friends or relatives? Once a week 07/16/2023 How often do you attend [facility] or restoration services? More than 4 times per year 07/16/2023 Do you belong to any clubs o r organizations such as shinto groups, unions, fraternal or athletic groups, or [...] medical care, and heating? Somewhat hard 07/16/2023 [facility] - Occupational Stress Questionnaire Answer Date [...] place to sleep or slept in a detention (including now)? No 07/16/2023 Comments No Sex and Gender Information Value Date Recorded Sex Assigned at Female 07/04/2023 10:09 AM CITY CARRIER ASSISTANT Legal Sex Female 1:54 PM CITY CARRIER ASSISTANT Gender Identity Female 07/04/2023 10:09 AM CITY CARRIER ASSISTANT Sexual Orientation Straight 07/04/2023 10 :09 AM CITY CARRIER ASSISTANT documented as of this encounter Miscellaneous Notes * Telephone Encounter - Peggy Weeks RN - 11/03/2023 11:15 AM CDT Medication failed the protocol, provider to review and approve the medication order if appropriate. Requested Prescriptions Pending Prescriptions Disp Refills lamoTRIgine (LaMICtal) 200 MG Tablet [Pharmacy Med Name: LAMOTRIGINE 200MG TABLETS] 60 Tablet 3 Sig: TAKE 1 TABLET BY MOUTH TWICE DAILY Not Delegated - Anticonvulsants Excluding Benzodiazepines Protocol Failed - 11/03/2023 8:19 AM Failed - This refill cannot be delegated Passed - Visit with relevant provider in past 12 months or upcoming 90 days Recent Visits Date Type Provider Dept 10/27/23 Office Visit Sherie Wright PAC [facility] 10/23/23 Office Visit Sherie Wright PAC [facility] 09/29/23 Office Visit Sherie Wright PAC [facility] 07/21/23 Telemedicine Sherie Wright PAC [facility] 07/18/23 Office Visit Sherie Wright PAC [facility] 07/04/23 Office Visit Sherie Wright PAC [facility] Showing recent visits within past 365 days and meeting all other requirements Future Appointments Date Type Provider Dept 01/16/24 Appointment Sherie Wright PAC [facility] Showing future appointments within next 90 days and meeting all other requirements documented in this encounter Plan of Treatment Not on file documented as of this encounter Goals Goal Patient Goal Type Associated Problems Recent Progress Patient-Stated? Author process stressors Behavioral Health Improving( 11:03 AM CDT) No Cynthia Wiggins LCSW Note: Goal/Objective: Decrease anxiety and depression through processing difficulties. Anticipated Time Frame for Goal Completion: 6 months Goal Reviewed with: patient Readiness to change: Ready to change Department associated with goal: [facility] Steps to achieve goal: will attend counseling/psychotherapy sessions at least once monthly, at least 6 sessions, utilizing individual and/or group sessions to express thoughts and feelings. to identify, verbalize and process at least three contributing factors/triggers to anxiety and depression. to identify and verbalize at least three actions/skills to prevent and/or cope with anxiety and depression. to put into action, at least one time weekly, for one month, an action/skill to prevent and or cope with anxiety and depression. documented as of this encounter Visit Diagnoses Not on filedocumented in this encounter Care Teams Yard Jacker Relationship Specialty Start Date End Date Sherie Wright PAC PCP - General Physician Outsewer 07/04/23 04/14/24 Marguerite Ponce APRN, GM/SVP GLOBAL PUBLISHER BUSINESS [address] [place] [address] Nurse Practitioner Advanced Practice Nurse 07/28/23 documented as of this encounter
--- OUTSIDE RECORDS SUMMARY | 2025-04-10 16:05 | XMS_ITS | Clinical Summary ---
Author Organization [facility] Address [address] [place] [address] Phone Care Team Providers Care Welder Apprentice Arc Name Role Phone Marguerite Ponce APRN, PCA Unavailable +1- [phone] Allergies Active Allergy Reactions Criticality Noted Date Comments Codeine Other (see Comments),Nausea,Vomiting Medium 12/01/2018 Reaction: NAUSEA, Medications topiramate (TOPAMAX) 25 MG Tablet Take 1 Tablet by mouth 2 times daily. 180 Tablet 2 4 Active escitalopram (LEXAPRO) 20 MG Tablet Take 1 Tablet by mouth daily. 90 Tablet 1 4 Active propranolol (INDERAL) 20 MG Tablet Take 1 Tablet by mouth 4 times daily. 120 Tablet 5 4 Active promethazine-dextr omethorphan (PROMETHAZINE-DM) 6.25-15 MG/5ML Syrup Take 5 mL by mouth every 4 hours as needed for Cough. 240 mL 4 Active lamoTRIgine (LaMICtal) 200 MG Tablet TAKE 1 TABLET BY MOUTH TWICE DAILY 60 Tablet 3 4 Active metFORMIN (GLUCOPHAGE-XR) 500 MG TABLET SR 24 HR TAKE 1 TABLET BY MOUTH TWICE DAILY 180 Tablet 2 4 Active pantoprazole (PROTONIX) 40 MG Tablet Delayed Response TAKE 1 TABLET BY MOUTH DAILY NEEDED FOR HEARTBURN 30 Tablet 4 Active levETIRAcetam (KEPPRA) 250 MG Tablet Take 1 Tablet by mouth 2 times daily. 60 Tablet 3 4 Active oxazepam (SERAX) 10 MG CapsuleIndications :Anxiety Take 1 Capsule by mouth in the morning and at bedtime. 30 Capsule 4 Active amphetamine-dextro amphetamine (Adderall) 10 MG TabletIndications: Attention deficit hyperactivity disorder (ADHD), unspecified ADHD type 10 mg in the AM and 1/2 tab (5 mg) in the PM 10 Tablet 4 Active Active Problems Problem Noted Date Diagnosed Date Epilepsy 09/29/2023 Overview (09/29/2023): NEURO follows PCOS (polycystic ovarian syndrome) 09/29/2023 Overview (09/29/2023): Metformin Pt is NOT diabetic Hypertension 07/04/2023 ADHD 07/04/2023 Obesity 07/04/2023 Immunizations Immunization Administration Dates Next Due Hepatitis A Vaccine 10/19/2007 Influenza, Injectable, Quadrivalent 06/29/2015 TDAP Vaccine 11/24/2014,07/14/2014 Family History Medical History Relation Name Comments Anxiety disorder Father Congestive Heart Failure Father High Cholesterol Father Hypertension Father Anxiety disorder Mother Relation Name Status Comments Father Alive Mother Alive Social History Tobacco Use Types Packs/Day Years Used Date Smoking Tobacco: Former Cigarettes Smokeless Tobacco: Never Tobacco Cessation:Counseling Given: No Alcohol Use Standard Drinks/Week Comments Yes 0 (1 standard drink = 0.6 oz pur e alcohol) [facility] Utilities Answer Date Recorded In the past 12 months has [employer], gas, oil, or water [employer] threatened to shut off services in your home? No 07/16/2023 Social Connection and Isolation Panel Answer Date Recorded In a typical week, how many times do you talk on the phone with family, friends, or neighbors? More than three times a week 07/16/2023 How often do you get togethe r with friends or relatives? Once a week 07/16/2023 How often do you attend chur or anglican services? More than 4 times per year 07/16/2023 Do you belong to any clubs o r organizations such as yazidi groups, unions, fraternal or athletic groups, or [...] medical care, and heating? Somewhat hard 07/16/2023 [facility] - Occupational Stress Questionnaire Answer Date Recorded [...] Sex Assigned at Female 07/04/2023 10:09 AM SHELVING SUPERVISOR Legal Sex Female 1:54 PM SHELVING SUPERVISOR Gender Identity Female 07/04/2023 10:09 AM SHELVING SUPERVISOR Sexual Orientation Straight 07/04/2023 10 :09 AM SHELVING SUPERVISOR Last Filed Vital Signs Vital Sign Reading Time Taken Comments Blood Pressure 112/74 10/27/2023 3:22 PM CDT Pulse 74 10/27/2023 3:22 PM CDT Temperature 36.4 C (97.5 F) 10/27/2023 3:22 PM CDT Respiratory Rate 12 10/27/2023 3:22 PM CDT Oxygen Saturation 97% 10/27/2023 3:22 PM CDT Inhaled Oxygen Concentration - - Weight 117 kg (258 lb) 10/27/2023 3:22 PM CDT Height 157.5 cm (5' 2) 09/29/2023 1:13 PM CDT Body Mass Index 47.19 09/29/2023 1:13 PM CDT Plan of Treatment Health Maintenance Due Date Last Done Comments Hepatitis C Virus (HCV) Screening 1988 Hepatitis B Immunization (1 of 3 - 19+ 3-dose series) 09/20/2007 Pap Smear 2009 Human Papillomavirus (HPV) Immunization (1 - 3-dose SCDM series) 09/20/2015 Cervical Cancer Screening (CCS) 2018 HPV/Cotest 2018 Td Immunization Every 10 Yea rs (Adults With 1 Tdap) 11/24/2024 11/24/2014, 07/14/2014 Influenza Immunization (#1) 2025 11/0 10/2018, 06/29/2015 SARS-COV-2 Immunization ( season) 2025 11/12/2020 Respiratory Syncytial Virus (RSV) Immunization (Adult) (1 - 1-dose 75+ series) 09/20/2063 DTaP/Tdap/Td Immunization Discontinued 2014, 07/14/2014 Diabetes: Hemoglobin A1c Discontinued 07/28/2023 Meningococcal Immunization (ACWY) Aged Out No longer eligible based on patient's age to complete this topic Pneumococcal Immunization Combined Aged Out No longer eligible based on patient's age to complete this topic Rotavirus Immunization Aged Out No lo nger eligible based on patient's age to complete this topic Goals Goal Patient Goal Type Associated Problems Recent Progress Patient-Stated? Author process stressors Behavioral Health Improving( 11:03 AM CDT) No Cynthia Wiggins, [employer] Note: Goal/Objective: Decrease anxiety and depression through processing difficulties. Anticipated Time Frame for Goal Completion: 6 months Goal Reviewed with: patient Readiness to change: Ready to change Department associated with goal: [facility] Steps to achieve goal: [...] and or cope with anxiety and depression. Procedures Procedure Name Priority Date/Time Associated Diagnosis Comments HEMOGLOBIN A1C W/ ESTIMATED GLUCOSE Routine 07/28/2023 8:00 AM SHELVING SUPERVISOR Well adult exam from Last 3 Months or Most Recently Relevant to Health Maintenance Results * HEMOGLOBIN A1C W/ ESTIMATED GLUCOSE (07/28/2023 8:00 AM SHELVING SUPERVISOR) HGB-A1C 5.0 4.0 - 6.0 % 07/28/2023 3:29 PM SHELVING SUPERVISOR [facility] Est Average Glucose 96.8 mg/dL 07/28/2023 3:29 PM SHELVING SUPERVISOR [facility] Blood Venipuncture / Unknown 07/28/2023 8:00 AM SHELVING SUPERVISOR 07/28/2023 8:00 AM SHELVING SUPERVISOR Narrative [facility] - 07/28/2023 3:29 PM SHELVING SUPERVISOR HEMOGLOBIN A1C: DIABETIC PATIENTS: WELL-CONTROLLED: 6.2 - 7.0 INTERMEDIATE WELL-CONTROLLED: 7.0 - 9.0 POORLY-CONTROLLED: >9.0 Sherie Wright PAC CHEMISTRY ORDERAB LES Final Result [facility] [address] [place] [address] from Last 3 Months or Most Recently Relevant to Health Maintenance Insurance MEDICAID [place] Care Teams Welder Apprentice Arc Relationship Specialty Start Date End Date Marguerite Ponce, VIRTUALIZATION ARCHITECT, PCA [address] [place] [address] Nurse Practitioner Advanced Practice Nurse 07/28/23
--- OUTSIDE RECORDS SUMMARY | 2025-04-10 16:05 | XMS_ITS | Patient Health Record ---
Author Organization [facility] Address [address] [facility] [address] [place] [address] Care Team Providers Care Gift Officer Name Role Phone Carlos Hartman Unavailable [phone] Reason For Referral No Information Medications Medication SIG (Take, Route, Frequency, Duration) Notes Start Date End Date Status Amoxicillin 500 MG Tablet Oral Active Azithromycin 250 MG Tablet Oral Active levETIRAcetam 500 MG Tablet Oral Active Topiramate 25 MG Tablet Oral Active Phentermine HCl 15 MG Capsule Oral Active Qsymia 3.75-23 MG Capsule Extended Release 24 Hour Oral Act tex Qsymia 7.5-46 MG Capsule Extended Release 24 Hour Oral Act tex Escitalopram Oxalate 20 MG Tablet Oral Active Amoxicillin-Pot Clavulanate 875-125 MG Tablet Oral Active Oxazepam 10 mg Capsule Oral Active methylPREDNISolone 4 MG Tabl et Therapy Pack Oral Active hydrOXYzine HCl 25 MG Tablet Oral Active predniSONE 20 MG Tablet Oral Active Oseltamivir Phosphate 75 MG Capsule Oral Active Triamcinolone Acetonide 0.10 % Ointment External Active Famotidine 40 MG Tablet Oral Active metFORMIN HCl ER 500 MG Tabl et Extended Release 24 Hour Oral Act tex Pantoprazole Sodium 40 MG Tablet Delayed Release Oral Activ e Qsymia 11.25-69 mg Capsule Extended Release 24 Hour Oral Act tex ProAir HFA 108 (90 Base) MCG/ACT Aerosol Solution Inhalation Act tex lamoTRIgine 200 MG Tablet Oral Active Benzonatate 200 MG Capsule Oral Active Amphetamine-Dextroamphetamin e 5 MG Tablet Oral Active levETIRAcetam 250 MG Tablet Oral Active Propranolol HCl 20 MG Tablet Oral Active Plan Of Treatment No Information
--- OUTSIDE RECORDS SUMMARY | 2025-04-10 16:05 | XMS_ITS | Encounter Summary ---
Author Organization [facility] Address [address] [place] [address] Phone Care Team Providers Care Starch And Prosize Mixer Name Role Phone Marguerite Ponce APRN, SHEET CATCHER Unavailable [phone]- [phone] Reason for Visit * Reason Comments Medication Refill Encounter Details Date Type Department Care Team (Late st Contact Info) Description 04/17/2024 Refill [facility] Medical Group - Internal Medicine - [place] [address] [place] [id number] Sherie Wright, [facility] [address] [place] [address] Medication Refill Social History Tobacco Use Types Packs/Day Years Used Date Smoking Tobacco: Former Cigarettes Smokeless Tobacco: Never Alcohol Use Standard Drinks/Week Comments Yes 0 (1 standard drink = 0.6 oz pur e alcohol) [facility] Utilities Answer Date Recorded In the past 12 months has [employer], [employer], oil, or water [employer] threatened to shut off services in your [...] How often do you attend chur or pentecostalism services? More than 4 times per year 07/16/2023 Do you belong to any clubs o r organizations such as mandaeism groups, unions, fraternal or athletic groups, or [...] medical care, and heating? Somewhat hard 07/16/2023 [facility] Occupat ional Health - Occupational Stress [...] place to sleep or slept in a alf (including now)? No 07/16/2023 Comments No Sex and Gender Information Value Date Recorded Sex Assigned at Female 07/04/2023 10:09 AM BUSINESS INTELLIGENCE DEVELOPER Legal Sex Female 1:54 PM BUSINESS INTELLIGENCE DEVELOPER Gender Identity Female 07/04/2023 10:09 AM BUSINESS INTELLIGENCE DEVELOPER Sexual Orientation Straight 07/04/2023 10 :09 AM BUSINESS INTELLIGENCE DEVELOPER documented as of this encounter Miscellaneous Notes * Telephone Encounter - Lauryn Bird RN - 04/18/2024 8:41 AM CDT Patient stated 04/14/24: With my recent loss of insurance, I have decided to resume seeing Dr. Diallo as they are able to set me up on a plan that works best for my current income status. documented in this encounter Plan of Treatment Not on file documented as of this encounter Goals Goal Patient Goal Type Associated Problems Recent Progress Patient-Stated? Author process stressors Behavioral Health Improving( 11:03 AM CDT) No Cynthia Wiggins, MICA Note: Goal/Objective: Decrease anxiety and depression through processing difficulties. Anticipated Time Frame for Goal Completion: 6 months Goal Reviewed with: patient Readiness to change: Ready to change Department associated with goal: [facility] Steps to [...] on filedocumented in this encounter Care Teams Starch And Prosize Mixer Relationship Specialty Start Date End Date Marguerite Ponce APRN, SHEET CATCHER [address] [place] [address] Nurse Practitioner Advanced Practice Nurse 07/28/23 documented as of this encounter
--- OUTSIDE RECORDS SUMMARY | 2025-04-10 16:05 | XMS_ITS | Encounter Summary ---
Author Organization [facility] Address [address] [place] [address] Phone Care Team Providers Care Express Manager Name Role Phone Sherie Wright Primary Care Pro vider Marguerite Ponce DECORATOR INSPECTOR, STAIN WIPER Unavailable + [phone] Reason for Visit * Reason Comments Medication Refill Encounter Details Date Type Department Care Team (Late st Contact Info) Description 11/14/2023 Refill [facility] Medical Group - Internal Medicine - [place] [address] [place] [id number] Sherie Wright, [facility] [address] [place] [address] Medication Refill Social History Tobacco Use Types Packs/Day Years Used Date Smoking Tobacco: Former Cigarettes Smokeless Tobacco: Never Alcohol Use Standard Drinks/Week Comments Yes 0 (1 standard drink = 0.6 oz pur e alcohol) [facility] Utilities Answer Date Recorded In the past 12 months has [employer], gas, oil, or water [employer] threatened to shut off services in your home? No 07/16/2023 Social Connection and Isolation Panel Answer Date Recorded In a typical week, how many times do you talk on the phone with family, friends, or neighbors? More than three times a week 07/16/2023 How often do you get togethe r with friends or relatives? Once a week 07/16/2023 How often do you attend [facility] or jehovah's witness services? More than 4 times per year 07/16/2023 Do you belong to any clubs o r organizations such as methodist groups, unions, fraternal or athletic groups, or [...] medical care, and heating? Somewhat hard 07/16/2023 [facility] Occupat ional [facility] - Occupational Stress Questionnaire Answer Date Recorded [...] place to sleep or slept in a retirement (including now)? No 07/16/2023 Comments No Sex and Gender Information Value Date Recorded Sex Assigned at Female 07/04/2023 10:09 AM ABRASIVE GRADER Legal Sex Female 1:54 PM ABRASIVE GRADER Gender Identity Female 07/04/2023 10:09 AM ABRASIVE GRADER Sexual Orientation Straight 07/04/2023 10 :09 AM ABRASIVE GRADER documented as of this encounter Miscellaneous Notes * Telephone Encounter - Peggy Weeks RN - 11/14/2023 10:32 AM CDT Medication(s) [facility] and [facility] Medication Refill Standing Order for Pediatricand Adult Patients. Requested Prescriptions Pending Prescriptions Disp Refills pantoprazole (PROTONIX) 40 MG Tablet Delayed Response [Pharmacy Med Name: PANTOPRAZOLE 40MG TABLETS] 30 Tablet 0 Sig: TAKE 1 TABLET BY MOUTH DAILY NEEDED FOR HEARTBURN Proton Pump Inhibitors Protocol Passed - 11/14/2023 9:57 AM Passed - No positive test in the past 12 months or most recent test was negative Passed - Visit with relevant provider in past 12 months or upcoming 90 days Recent Visits Date Type Provider Dept 10/27/23 Office Visit Sherie Wright PAC [facility] [place] 10/23/23 Office Visit Sherie Wright PAC [facility] 09/29/23 Office Visit Sherie Wright PAC [facility] [place] 07/21/23 Telemedicine Sherie Wright PAC [facility] [place] 07/18/23 Office Visit Sherie Wright PAC [facility] [place] 07/04/23 Office Visit Sherie Wright PAC [facility] [place] Showing recent visits within past 365 days and meeting all other requirements Future Appointments Date Type Provider Dept 01/16/24 Appointment Sherie Wright PAC [facility] [place] Showing future appointments within next 90 days and meeting all other requirements Passed - No active on record documented in this encounter Plan of Treatment Not on file documented as of this encounter Goals Goal Patient Goal Type Associated Problems Recent Progress Patient-Stated? Author process stressors Behavioral Health Improving( 11:03 AM CDT) No Cynthia Wiggins, HAND COLLATOR Note: Goal/Objective: Decrease anxiety and depression through processing difficulties. Anticipated Time Frame for Goal Completion: 6 months Goal Reviewed with: patient Readiness to change: Ready to change Department associated with goal: [facility] Steps to achieve goal: [...] on filedocumented in this encounter Care Teams Express Manager Relationship Specialty Start Date End Date Sherie Wright PAC PCP - General Physician Reeler Operator 07/04/23 04/14/24 Marguerite Ponce, DECORATOR INSPECTOR, STAIN WIPER [address] [place] [address] Nurse Practitioner Advanced Practice Nurse 07/28/23 documented as of this encounter
--- OUTSIDE RECORDS SUMMARY | 2025-04-10 16:05 | XMS_ITS | Encounter Summary ---
Author Organization [facility] Address [address] [place] [address] Phone Care Team Providers Care Cube Machine Tender Name Role Phone Sherie Wright Primary Care Pro vider Marguerite Ponce COMMUNITY MARKETING COORDINATOR, REAL ESTATE RENTAL AGENT Unavailable + [phone] Reason for Visit * Reason Comments Medication Refill Encounter Details Date Type Department Care Team (Late st Contact Info) Description 12/18/2023 Refill [facility] - Internal Medicine - [place] [address] [place] [id number] Sherie Wright, [facility] [address] [place] [address] Medication Refill Social History Tobacco Use Types Packs/Day Years Used Date Smoking Tobacco: Former Cigarettes Smokeless Tobacco: Never Alcohol Use Standard Drinks/Week Comments Yes 0 (1 standard drink = 0.6 oz pur e alcohol) [place] Utilities Answer Date Recorded In the past 12 months has [employer], gas, oil, or water [employer] threatened to shut off services in your home? No 07/16/2023 Social Connection and Isolation Panel Answer Date Recorded In a typical week, how many times do you talk on the phone with family, friends, or neighbors? More than three times a week 07/16/2023 How often do you get togethe r with friends or relatives? Once a week 07/16/2023 How often do you attend [facility] or yarsani services? More than 4 times per year 07/16/2023 Do you belong to any clubs o r organizations such as spiritism groups, unions, fraternal or athletic groups, or [...] medical care, and heating? Somewhat hard 07/16/2023 [facility] of Occupat ional [facility] - Occupational Stress Questionnaire Answer [...] place to sleep or slept in a fdc (including now)? No 07/16/2023 Comments No Sex and Gender Information Value Date Recorded Sex Assigned at Female 07/04/2023 10:09 AM SUPERVISOR PASTE PLANT Legal Sex Female 1:54 PM SUPERVISOR PASTE PLANT Gender Identity Female 07/04/2023 10:09 AM SUPERVISOR PASTE PLANT Sexual Orientation Straight 07/04/2023 10 :09 AM SUPERVISOR PASTE PLANT documented as of this encounter Miscellaneous Notes * Telephone Encounter - Peggy Weeks RN - 12/18/2023 1:34 PM CDT Medication(s) [facility] Medication Refill Standing Order for Pediatricand Adult Patients. Requested Prescriptions Pending Prescriptions Disp Refills pantoprazole (PROTONIX) 40 MG Tablet Delayed Response [Pharmacy Med Name: PANTOPRAZOLE 40MG TABLETS] 30 Tablet 0 Sig: TAKE 1 TABLET BY MOUTH DAILY NEEDED FOR HEARTBURN Proton Pump Inhibitors Protocol Passed - 12/18/2023 12:02 PM Passed - No positive test in the past 12 months or most recent test was negative Passed - Visit with relevant provider in past 12 months or upcoming 90 days Recent Visits Date Type Provider Dept 10/27/23 Office Visit Sherie Wright PAC [facility] [place] 10/23/23 Office Visit Sherie Wright PAC [facility] 09/29/23 Office Visit Sherie Wright PAC [facility] [place] 07/21/23 Telemedicine Sherie Wright PAC [facility] [place] 07/18/23 Office Visit Sherie Wright PAC [facility] [place] 07/04/23 Office Visit Sherie Wright PAC [facility] [place] Showing recent visits within past 365 days and meeting all other requirements Future Appointments Date Type Provider Dept 01/16/24 Appointment Sherie Wright PAC [facility] [place] Showing future appointments within next 90 days and meeting all other requirements Passed - No active on record documented in this encounter Plan of Treatment Not on file documented as of this encounter Goals Goal Patient Goal Type Associated Problems Recent Progress Patient-Stated? Author process stressors Behavioral Health Improving( 11:03 AM CDT) No Cynthia Wiggins, IMMIGRATION OFFICER Note: Goal/Objective: Decrease anxiety and depression through processing difficulties. Anticipated Time Frame for Goal Completion: 6 months Goal Reviewed with: patient Readiness to change: Ready to change Department associated with goal: [facility] Steps to achieve goal: [...] on filedocumented in this encounter Care Teams Cube Machine Tender Relationship Specialty Start Date End Date Sherie Wrigth PAC PCP - General Physician Machine Setup Operator 07/04/23 04/14/24 Marguerite Ponce, COMMUNITY MARKETING COORDINATOR, REAL ESTATE RENTAL AGENT [address] [place] [address] Nurse Practitioner Advanced Practice Nurse 07/28/23 documented as of this encounter
--- OUTSIDE RECORDS SUMMARY | 2025-04-10 16:05 | XMS_ITS | Encounter Summary ---
Author Organization [facility] Address [address] [place] [address] Phone Care Team Providers Care Poultry Field Service Technician Name Role Phone Sherie Wright Primary Care Pro vider Marguerite Ponce SUPERVISOR TWISTING DEPARTMENT, FAMILY SERVICE ASSISTANT Unavailable + [phone] Reason for Visit * Reason Comments Medication Refill Encounter Details Date Type Department Care Team (Late st Contact Info) Description 09/10/2023 Refill [facility] - Internal Medicine - [place] [address] [place] [id number] Sherie Wright, [facility] [address] [place] [address] Medication Refill Social History Tobacco Use Types Packs/Day Years Used Date Smoking Tobacco: Former Cigarettes Smokeless Tobacco: Never Alcohol Use Standard Drinks/Week Comments Yes 0 (1 standard drink = 0.6 oz pur e alcohol) [facility] Utilities Answer Date Recorded In the past 12 months has [employer], gas, oil, or water [employer] threatened to shut off services in your home? No 07/16/2023 Social Connection and Isolation Panel Answer Date Recorded In a typical week, how many times do you talk on the phone with family, friends, or neighbors? More than three times a week 07/16/2023 How often do you get togethe r with friends or relatives? Once a week 07/16/2023 How often do you attend [facility] or jainism services? More than 4 times per year 07/16/2023 Do you belong to any clubs o r organizations such as latter day groups, unions, fraternal or athletic groups, or [...] medical care, and heating? Somewhat hard 07/16/2023 [facility] ional [facility] - Occupational Stress Questionnaire Answer Date [...] place to sleep or slept in a [place] health care facility (including now)? No 07/16/2023 Comments No Sex and Gender Information Value Date Recorded Sex Assigned at Female 07/04/2023 10:09 AM MARINE EQUIPMENT SALES ENGINEER Legal Sex Female 1:54 PM MARINE EQUIPMENT SALES ENGINEER Gender Identity Female 07/04/2023 10:09 AM MARINE EQUIPMENT SALES ENGINEER Sexual Orientation Straight 07/04/2023 10 :09 AM MARINE EQUIPMENT SALES ENGINEER documented as of this encounter Miscellaneous Notes * Telephone Encounter - Sherie Wright PAC - 09/10/2023 4:56 PM CST Does this pt see NEURO for seizures? What is she on the keppra for? NE EQUIPMENT SALES ENGINEER * Telephone Encounter - Peggy Weeks RN - 09/10/2023 1:04 PM CST Medication failed the protocol, provider to review and approve the medication order if appropriate. Requested Prescriptions Pending Prescriptions Disp Refills levETIRAcetam (KEPPRA) 250 MG Tablet [Pharmacy Med Name: LEVETIRACETAM 250MG TABLETS] 60 Tablet 3 Sig: TAKE 2 TABLETS BY MOUTH TWICE DAILY Not Delegated - Anticonvulsants Excluding Benzodiazepines Protocol Failed - 09/10/2023 12:20 PM Failed - This refill cannot be delegated Passed - Visit with relevant provider in past 12 months or upcoming 90 days Recent Visits Date Type Provider Dept 07/21/23 Telemedicine Sherie Wright PAC [facility] [place] 07/18/23 Office Visit Sherie Wright PAC [facility] [place] 07/04/23 Office Visit Sherie Wright PAC [facility] [place] Showing recent visits within past 365 days and meeting all other requirements Future Appointments No visits were found meeting these conditions. Showing future appointments within next 90 days and meeting all other requirements NE EQUIPMENT SALES ENGINEER documented in this encounter Plan of Treatment [...] Ready to change Department associated with goal: [facility] Steps to achieve goal: [...] on filedocumented in this encounter Care Teams Poultry Field Service Technician Relationship Specialty Start Date End Date Sherie Wright PAC PCP - General Physician Cemetery Worker 07/04/23 04/14/24 Marguerite Ponce APRN, FAMILY SERVICE ASSISTANT [address] [place] [address] Nurse Practitioner Advanced Practice Nurse 07/28/23 documented as of this encounter
--- OUTSIDE RECORDS SUMMARY | 2025-04-10 16:05 | XMS_ITS | Clinical Summary ---
Author Organization [facility] Address [address] [place] [address] Care Team Providers Care Rn Progressive Care Unit Name Role Phone Unavailable Primary Care Provider Unavailabl e Social History Tobacco Use Types Packs/Day Years Used Date Smoking Tobacco: Never Assessed Comments Unknown Sex and Gender Information Value Date Recorded Sex Assigned at Not on file Legal Sex Female 7:15 PM CDT Gender Identity Not on file Sexual Orientation Not on file Plan of Treatment Health Maintenance Due Date Last Done Comments Cervical Cancer Screening Pa p Smear (Age 30 to 64) Every 3 Years 1988 Annual Physical 09/20/1991 Hepatitis C 2006 DTaP, Tdap and Td Vaccines ( 1 - Tdap) 09/20/2007 Hepatitis B Vaccines (1 of 3 - 19+ 3-dose series) 09/20/2007 HPV Vaccines (1 - 3-dose SCD M series) 09/20/2015 Cervical Cancer Screening Pa p with HPV Testing (Age 30 to 64) Every 5 Years 2018 Cervical Cancer Screening with HPV 2018 COVID-19 Vaccine (2023-2 5 season) 2025 Meningococcal B Vaccine Aged Out No l onger eligible based on patient's age to complete this topic Meningococcal Vaccine Aged Out No shobha gunnar eligible based on patient's age to complete this topic Pneumococcal Vaccine: Pediat rics (0 to 5 Years) and At-Risk Patients (6 to 49 Years) Aged Out No longer eligible b ased on patient's age to complete this topic RSV Immunizations Under 20 Months Aged Out No longer eligible based on patient's age to complete this topic
--- OUTSIDE RECORDS SUMMARY | 2025-04-10 16:05 | XMS_ITS | Encounter Summary ---
Author Organization [facility] Address [address] [facility] [facility] [address] [facility] [address] [place] [address] Phone Care Team Providers Care Car Shagger Name Role Phone Sherie Wright Primary Care Pro vider Marguerite Ponce NOXIOUS WEEDS AND PEST INSPECTOR, AIR ANALYSIS ENGINEERING TECHNICIAN Unavailable + [phone] Reason for Visit * Reason Comments Medication Refill Encounter Details Date Type Department Care Team (Late st Contact Info) Description 10/24/2023 Refill [facility] - Internal Medicine - [place] [address] [place] [id number] Sherie Wright, [facility] [address] [place] [address] Medication Refill Social History Tobacco Use Types Packs/Day Years Used Date Smoking Tobacco: Former Cigarettes Smokeless Tobacco: Never Alcohol Use Standard Drinks/Week Comments Yes 0 (1 standard drink = 0.6 oz pur e alcohol) [facility] Utilities Answer Date Recorded In the past 12 months has [facility], gas, oil, or water [employer] threatened to shut off services in your home? No 07/16/2023 Social Connection and Isolation Panel Answer Date Recorded In a typical week, how many times do you talk on the phone with family, friends, or neighbors? More than three times a week 07/16/2023 How often do you get togethe r with friends or relatives? Once a week 07/16/2023 How often do you attend [facility] or jehovah's witness services? More than 4 times per year 07/16/2023 Do you belong to any clubs o r organizations such as rastafarian groups, unions, fraternal or athletic groups, or [...] medical care, and heating? Somewhat hard 07/16/2023 [facility] of Occupat ional [facility] - Occupational Stress Questionnaire Answer Date [...] place to sleep or slept in a [facility] (including now)? No 07/16/2023 Comments No Sex and Gender Information Value Date Recorded Sex Assigned at Female 07/04/2023 10:09 AM BUSINESS SERVICES VICE PRESIDENT Legal Sex Female 1:54 PM BUSINESS SERVICES VICE PRESIDENT Gender Identity Female 07/04/2023 10:09 AM BUSINESS SERVICES VICE PRESIDENT Sexual Orientation Straight 07/04/2023 10 :09 AM BUSINESS SERVICES VICE PRESIDENT documented as of this encounter Miscellaneous Notes * Telephone Encounter - Lauryn Bird RN - 10/24/2023 8:41 AM CDT Medication failed the protocol, provider to review and approve the medication order if appropriate. Requested Prescriptions Pending Prescriptions Disp Refills levETIRAcetam (KEPPRA) 250 MG Tablet [Pharmacy Med Name: LEVETIRACETAM 250MG TABLETS] 60 Tablet 3 Sig: TAKE 2 TABLETS BY MOUTH TWICE DAILY Not Delegated - Anticonvulsants Excluding Benzodiazepines Protocol Failed - 10/24/2023 8:03 AM Failed - This refill cannot be delegated Passed - Visit with relevant provider in past 12 months or upcoming 90 days Recent Visits Date Type Provider Dept 10/23/23 Office Visit Sherie Wright PAC [facility] 09/29/23 Office Visit Sherie Wright PAC [facility] [place] 07/21/23 Telemedicine Sherie Wright PAC [facility] [place] 07/18/23 Office Visit Sherie Wright PAC [facility] [place] 07/04/23 Office Visit Sherie Wright PAC [facility] [place] Showing recent visits within past 365 days and meeting all other requirements Future Appointments Date Type Provider Dept 01/16/24 Appointment Sherie Wright PAC [facility] [place] Showing future appointments within next 90 days and meeting all other requirements documented in this encounter Plan of Treatment Not on file documented as of this encounter Goals Goal Patient Goal Type Associated Problems Recent Progress Patient-Stated? Author process stressors Behavioral Health Improving( 11:03 AM CDT) Cynthia Santiago LCSW Note: Goal/Objective: Decrease anxiety and depression through processing difficulties. Anticipated Time Frame for Goal Completion: 6 months Goal Reviewed with: patient Readiness to change: Ready to change Department associated with goal: [facility] Steps to achieve goal: [...] on filedocumented in this encounter Care Teams Car Shagger Relationship Specialty Start Date End Date Sherie Wright PAC PCP - General Physician Or Rn 07/04/23 04/14/24 Marguerite Ponce APRN, AIR ANALYSIS ENGINEERING TECHNICIAN [address] [place] [address] Nurse Practitioner Advanced Practice Nurse 07/28/23 documented as of this encounter
--- OUTSIDE RECORDS SUMMARY | 2025-04-10 16:05 | XMS_ITS | Patient Health Record ---
[facility] Address [address] [place] [address] Care Team Providers Care Reverse Unit Operator Name Role Phone Ami Fong Primary Care Provider Allergies Allergen (clinical drug ingredient) Drug/Non Drug Allergy documented on EMR Reaction Allergy Type Onset Date Status Codeine Phosphate nausea and vomiting Drug Allergy Active Seasonale Unknown Drug Allergy Active Reason For Referral No Information Medications Medication SIG (Take, Route, Frequency, Duration) Notes Start Date End Date Status lamoTRIgine 200 MG 1 tablet Orally twic e a day Active Oxazepam 10 MG 1 capsule as needed Orally twice a day; Duration: 30 days 10/14/2023 Active Adderall 10 MG 1 tablet Orally Twic e a day Active Adderall 5 MG 1 tablet Orally Twic e a day Active Lo Loestrin Fe 1 MG-10 MCG / 10 MCG 1 tablet Orally Once a day Active metFORMIN HCl 500 MG 1 tablet with a dinora l Orally twice a day Active Topiramate 25 MG 1 tablet Orally twic e a day Active Propranolol HCl 20 MG 1 tablet Orally fo ur times a day Active Escitalopram Oxalate 20 MG 1 tablet Oral ly Once a day Active levETIRAcetam 500 MG 1 tablet Orally nita ry 12 hrs Active Pantoprazole Sodium 40 MG 1 tablet Orall y Once a day Active Social History Tobacco Control (Standard) Question Answer Notes Additional Findings: Tobacco user e-cigarette Section Notes: PRESCRIPTION # FILLED WRITTE N DRUG LABEL QTY DAYS STRENGTH MME PRESCRIBER PHARMACY REFILL NO. REFILLS STATE PATIENT [id number] 09/29/2023 09/29/2023 Oxazepam 28.0 14 10 MG NA Jatin Cutler Md - [id number] [place], [place] NA 0 [place] [id number] 09/10/2023 09/10/2023 Amphetamine Salt Combo 45.0 30 2.5 MG / 2.5 MG / 2.5 MG / 2.5 MG NA Sherie Winslow [id number] [place], [place] NA 0 [place] [id number] 08/27/2023 08/25/2023 Amphetamine Salt Combo 60.0 30 1.25 MG / 1.25 MG / 1.25 MG / 1.25 MG NA Sherie Winslow [id number] [place], [place] NA 0 [place] [id number] 08/11/2023 06/23/2023 Oxazepam 90.0 30 10 MG NA Ramsey Kelly - [id number] [place], [place] NA 1 [place] [id number] 07/22/2023 07/18/2023 Amphetamine Salt Combo 60.0 30 1.25 MG / 1.25 MG / 1.25 MG / 1.25 MG NA Sherie Winslow [id number] [place], [place] NA 0 [place] [id number] 07/09/2023 06/09/2023 Phentermine Hcl 30.0 30 15 MG NA Chely Problems Problem Type SNOMED Code ICD Code Onset Dates Problem Status W/U Status Risk Notes Problem Tobacco user (797651285) Nicotine dependence, unspecified, uncomplicated (F17.200) Active confirmed Problem Attention deficit hyperactivity disorder, 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) Adult ADHD (F90.0) Active confirmed Problem Generalized anxiety disorder (96053773) NELA (generalized anxiety disorder) (F41.1) Active confirmed Problem Major depressive disorder (074415776) MDD (major depressive disorder) (F32.9) Active confirmed Plan Of Treatment No Information Insurance Providers Payer Name Payer Address Payer Phone Subscriber Number Group Number Insured Name Patient Relationship to Insured Coverage Start Date Coverage End Date [facility] [address] [place] [address] [id number] Marleny Story Self - patient is the insured [address] [place] [id number] Marleny Story Self - patient is the insured 4 Medical (General) History Medical History History ICD Code epilepsy Seasonal Allergies Surgical History Surgery Date(Month/Year) C section 2015 Hospitalization History Reason Date(Month/Year) seizure in [place] 2021
--- OUTSIDE RECORDS SUMMARY | 2025-04-10 16:05 | XMS_ITS | Patient Health Record ---
Author Organization [facility] Address [address] [place] [address] Care Team Providers Care Java Developer Architect Name Role Phone Dr Noman Chandler Unavailable [phone] Allergies Allergen (clinical drug ingredient) Drug/Non Drug Allergy documented on EMR Reaction Allergy Type Onset Date Status codeine codeine (uncoded) stomach upset Allergy Active Reason For Referral No Information Medications Medication SIG (Take, Route, Frequency, Duration) Notes Start Date End Date Status 08/02 1-20 MG-MCG 1 tablet Orally O nce a day; Duration: 84 Active Topiramate 100 MG Oral; Duration: 18 Active ALPRAZolam 0.25 MG (Schedule IV Drug) O ral; Duration: 30 Active Escitalopram Oxalate 20 MG Oral; Duration: 30 Active busPIRone HCl 7.5 MG Oral; Duration: 90 Active Amitriptyline HCl 10 MG Oral; Duration: 90 Active Lidocaine 5 % 1 application as nee ded Externally Three times a day prn; Duration: 30 days 03/23/2020 Active Social History Tobacco Use: Social History Observation Description Date Details (start date - stop date) Never Smoker NA - NA Smoking Question Answer Notes Are you a: nonsmoker Problems Problem Type SNOMED Code ICD Code Onset Dates Problem Status W/U Status Risk Notes Problem Amenorrhea (49757027) Amenorrhea (N91.2) Active confirmed Plan Of Treatment No Information Insurance Providers Payer Name Payer Address Payer Phone Subscriber Number Group Number Insured Name Patient Relationship to Insured Coverage Start Date Coverage End Date [employer] [address] [address] [place] [id number] Marleny Story Self - patient is the insured Medical (General) History Medical History History ICD Code epilepsy (no seizure since high school) migraine headaches hypotension PCOS (Polycystic Ovarian Syndrome) Surgical History Surgery Date(Month/Year) Hospitalization History Reason Date(Month/Year) 2014
--- NOTE | 2025-04-10 16:07 | ED.EYEPROB ---
HPI - Eye Problem General Chief complaint: Eye Problems Stated complaint: Right Eye Problem Time Seen by Provider: 04/10/25 16:11 Source: patient Mode of arrival: ambulatory Limitations: no limitations History of Present Illness HPI Narrative: 34 y/o female presented for c/o right eye pain. Onset yesterday. Says it started 2 days after getting new false eye lashes placed. Says she had no complications at the time they were applied. Endorses 'bruised sensation' on eyeball. Denies any eye drainage, swelling, lid redness, vision changes, photophobia or FB sensation. MD chief complaint: eye pain Related Data Home Medications ?Medication ?Instructions ?Recorded ?Confirmed ?Last Taken ?Type escitalopram oxalate 20 mg tablet 20 mg PO DAILY 03/04/23 06/13/24 Unknown History lamotrigine 200 mg tablet 200 mg PO BID 03/04/23 06/13/24 Unknown History oxazepam 10 mg capsule 10 mg PO TID 03/04/23 06/13/24 Unknown History hydroxyzine HCl 25 mg tablet 25 mg PO Q6H PRN Anxiety 08/18/23 06/13/24 Unknown History oxazepam 10 mg capsule See Rx Instructions .Route .COMPLEX 06/13/24 06/13/24 Unknown History dextroamphetamine-amphetamine 20 04/10/25 Unknown History mg tablet levetiracetam 250 mg tablet mg PO 04/10/25 Unknown History norethindrone 1 mg-ethinyl tablet 04/10/25 Unknown History estradiol 20 mcg (21)-iron 75 mg (7) tablet (Aurovela Fe 1-20 (28)) propranolol 40 mg tablet mg 04/10/25 Unknown History Allergies Allergy/AdvReac Type Severity Reaction Status Date / Time codeine AdvReac Mild Nausea and Verified 04/10/25 16:11 Vomiting Review of Systems Review of Systems: CONSTITUTIONAL: Denies body aches, fever, chills EYES:Endorses pain to right eye; Denies visual changes, swelling, redness, FB sensation, photophobia ENT: Denies rhinorrhea, congestion, sore throat, or otalgia. CARDIOVASCULAR: Denies chest pain, palpitations RESPIRATORY: Denies cough or dyspnea. SKIN: Denies rash NEUROLOGIC: Denies headache All systems reviewed & are unremarkable except as noted in HPI and below PMFSH Past Medical History Medical History Anxiety Hiatal hernia Juvenile myoclonic epilepsy Surgical History Surgical History History of cholecystectomy Previous section Family History Family History Mother Family history non-contributory Social History Social History Smoking status: Never smoker Alcohol intake: current Alcohol use details: rare use Substance use type: does not use Gender identity (if verbalized by the patient): Female Comments At time of signature, I have reviewed and agree with nursing past medical, surgical, social and family history unless otherwise noted. Please see nursing chart for further information. There is no relevant family history pertinent to the presenting complaint Exam Narrative: GENERAL: Well-appearing HEAD: Normocephalic, atraumatic. EYES: right conjunctival injection, no active drainage. PERRLA, EOMI. Lid eversion shows no FB, no eye lid swelling or redness ENT: Mucous membranes pink and moist. No rhinorrhea. CHEST: Even, unlabored SKIN: Warm, dry, no rash. Normal skin turgor. NEURO: No focal deficits. Alert and oriented x3 PSYCH: Normal affect. Course Course Emergency Course: Patient is aware of diagnosis, understands and agrees to treatment plan. Anticipatory guidance given. Patient agrees to follow-up as directed and is aware of reasons to seek care at the emergency department. Portions of this record may have been created with voice recognition software Level of Care: Express Care Visit Vital Signs Vital signs: Vital Signs Temperature 97 F L 04/10/25 16:08 Pulse Rate 67 04/10/25 16:08 Respiratory Rate 18 04/10/25 16:08 Blood Pressure 124/73 04/10/25 16:08 Pulse Oximetry 100 04/10/25 16:08 Oxygen Delivery Room Air 04/10/25 16:08 Temperature 97 F L 04/10/25 16:08 Pulse Rate 67 04/10/25 16:08 Respiratory Rate 18 04/10/25 16:08 Blood Pressure 124/73 04/10/25 16:08 Pulse Oximetry 100 04/10/25 16:08 Oxygen Delivery Room Air 04/10/25 16:08 MDM - Eye Problem MDM Narrative Medical decision making narrative: Discussed physical exam findings c/w conjunctivitis. Declined quan lamp exam. Advised supportive measures and signs/symptoms to go to the ER. Pt is appropriate for outpt treatment and f/u. Differential Diagnosis Differential diagnosis: Likely corneal abrasion, conjunctivitis, acute iritis and other Discharge Plan Discharge Clinical Impression: Conjunctivitis Qualifiers: Conjunctivitis type: acute Acute conjunctivitis type: unspecified Laterality: right Qualified Code(s): H10.31 - Unspecified acute conjunctivitis, right eye Patient Disposition: Home Condition: Stable Instructions: Antibiotic Form, Conjunctivitis (ED) Additional Instructions: Avoid touching or rubbing your eye. Use over the counter lubricating eye drops as needed for irritation Use a warm or cool washcloth on your eye for comfort Use eyedrops as directed - you are contagious for 24 hours after starting the antibiotic Practice good handwashing and hygiene to prevent spread of infection Use new makeup, lashes etc. You may take Tylenol or ibuprofen for pain Follow-up with PCP or carton making machine operator if condition is not improving in 2-3days. Go to the emergency room if you have severe pain or pressure behind your eye, difficulty seeing, or other severe symptoms Patient Language: Mongolian Prescriptions: New polymyxin B sulf-trimethoprim 10,000 unit- 1 mg/mL drops 1 drp RIGHT EYE Q3H 7 Days Qty: 10 0RF Rx Instructions: while awake; do not exceed 6 doses in 24 hours No Action oxazepam 10 mg capsule 10 mg PO TID lamotrigine 200 mg tablet 200 mg PO BID escitalopram oxalate 20 mg tablet 20 mg PO DAILY hydroxyzine HCl 25 mg tablet 25 mg PO Q6H PRN (Reason: Anxiety) fexofenadine [Radha Allergy] 180 mg tablet 180 mg PO DAILY Qty: 20 0RF oxazepam 10 mg capsule See Rx Instructions .ROUTE .COMPLEX Rx Instructions: as prescribed amoxicillin-pot clavulanate 875-125 mg tablet 1 tablet PO Q12H Qty: 14 0RF norethindrone-e.estradiol-iron [Aurovela Fe 1-20 (28)] 1 mg-20 mcg (21)/75 mg (7) tablet propranolol 40 mg tablet levetiracetam 250 mg tablet PO dextroamphetamine-amphetamine 20 mg tablet Follow-up/Referrals: Jayden Diallo MD [Primary Care Provider, [facility]] Time of Disposition: 16:18
[2025-04-10 16:08] VITALS: BP 124/73; PULSE 67; RESP 18; TEMP 36.1; O2SAT 100
== END 2025-04-10 16:26 | disposition home or self-care (01) ==
PROVIDERS: Emergency Provider Nurse Practitioner Family; PCP Emergency Medicine
DX: H10.31 Unspecified acute conjunctivitis, right eye (principal); G40.B09 Juvenile myoclonic epilepsy, not intractable, without status epilepticus; F41.9 Anxiety disorder, unspecified
CPT/HCPCS: 99213; G0463

== ENCOUNTER 2025-05-22 11:19 | Emergency (ER) | payer OTHER, SELFPAY ==
--- OUTSIDE RECORDS SUMMARY | 2023-12-01 05:00 | XMS_ITS ---
Author Organization [facility] Address [address] [place] [address] Care Team Providers Care Caul Puller Name Role Phone Ami Fong Primary Care Provider REASON FOR VISIT r/s from 11/09 Encounters Encounter Location Date Provider Diagnosis [address] [address] 12/01/2023 Ami Fong Plan Of Treatment No Information Progress Notes * Vipul STORYOB:1990 (34 yo M)Acc No.[id number]:12/01/2023 UNLOCKED PROGRESS NOTE Patient: Marleny BALDWIN Provider: Candida Fong MSN, STUNNER AND SHACKLER-BC, PMHNP-BC :1990 A ge:33 Y S ex:Male Date:12/01/2023 Address:[address] [place], [place] [id number] Subjective: * Chief Complaints: * 1 . R/s from 11/09. * Medical History: Objective: * Vitals: Assessment: Plan: * Treatment: * * Electronic signature of Ami Fong , [id number] on 05/22/2025 at 11:24 AM UNIT CLERK Sign off status: Pending * Provider: Candida Fong, MSN, STUNNER AND SHACKLER-BC, PMHNP-BC Date: 0 12/01/2023 Generated for Moises ng/Fabritg/eTransmitting on: 1 07/22/2024 11:24 AM UNIT CLERK
--- OUTSIDE RECORDS SUMMARY | 2025-05-22 11:24 | XMS_ITS | Patient Health Record ---
Author Organization [facility] Address [address] [place] [address] Care Team Providers Care Director Radio Name Role Phone Stefan Fongi Primary Care Provider Allergies Allergen (clinical drug [...] PRESCRIBER PHARMACY REFILL NO. REFILLS STATE PATIENT [id number] 09/29/2023 09/29/2023 Oxazepam 28.0 14 10 MG NA Jatin Cutler Md - [id number] [place], [place] NA 0 [place] [id number] 09/10/2023 09/10/2023 Amphetamine Salt Combo 45.0 30 2.5 MG / 2.5 MG / 2.5 MG / 2.5 MG NA Sherie Winslow [id number] [place], [place] NA 0 [place] [id number] 08/27/2023 08/25/2023 Amphetamine Salt Combo 60.0 30 1.25 MG / 1.25 MG / 1.25 MG / 1.25 MG NA Sherie Winslow [id number] [place], [place] NA 0 [place] [id number] 08/11/2023 06/23/2023 Oxazepam 90.0 30 10 MG NA Ramsey Kelly - [id number] [place], [place] NA 1 [place] [id number] 07/22/2023 07/18/2023 Amphetamine Salt Combo 60.0 30 1.25 MG / 1.25 MG / 1.25 MG / 1.25 MG NA Sherie Winslow [id number] [place], [place] NA 0 [place] [id number] 07/09/2023 06/09/2023 Phentermine Hcl 30.0 30 15 MG NA Chely Problems Problem Type SNOMED Code ICD Code Onset Dates Problem Status W/U Status Risk Notes Problem Tobacco user (900792889) Nicotine dependence, unspecified, uncomplicated (F17.200) Active confirmed Problem Attention deficit hyperactivity disorder, predominantly inattentive type (90458599) Adult ADHD (F90.0) Active confirmed Problem Generalized anxiety disorder (28684590) NELA (generalized anxiety disorder) (F41.1) Active confirmed Problem Major depressive disorder (895865845) MDD (major depressive disorder) (F32.9) Active confirmed Plan Of Treatment No Information Insurance Providers Payer Name Payer Address Payer Phone Subscriber Number Group Number Insured Name Patient Relationship to Insured Coverage Start Date Coverage End Date [facility] [address] [place] [address] [id number] Marleny Story Self - patient is the insured 4 [facility] [address] [place] [address] [id number] JezEsequielen Self - patient is the insured 4 Medical (General) History Medical History History ICD Code epilepsy Seasonal Allergies Surgical History Surgery Date(Month/Year) C section 2015 Hospitalization History Reason Date(Month/Year) seizure in [place] 2021
--- OUTSIDE RECORDS SUMMARY | 2025-05-22 11:24 | XMS_ITS | Patient Health Record ---
Author Organization [facility] [employer] Address [address] [place] [address] Care Team Providers Care Revenue Cycle Administrator Name Role Phone Dr Noman Chandler Unavailable [phone] Allergies Allergen (clinical drug ingredient) Drug/Non Drug [...] Status W/U Status Risk Notes Problem Amenorrhea (23033476) Amenorrhea (N91.2) Active confirmed Plan Of Treatment No Information Insurance Providers Payer Name Payer Address Payer Phone Subscriber Number Group Number Insured Name Patient Relationship to Insured Coverage Start Date Coverage End Date [employer] [address] [address] [place] [address] [phone] [id number] Marleny Story Self - patient is the insured Medical (General) History Medical History History ICD Code epilepsy (no seizure since high school) migraine headaches hypotension PCOS (Polycystic Ovarian Syndrome) Surgical History Surgery Date(Month/Year) Hospitalization History Reason Date(Month/Year) 2014
--- OUTSIDE RECORDS SUMMARY | 2025-05-22 11:24 | XMS_ITS | Patient Health Record ---
Author Organization [facility] [employer] Address [address] [facility] [address] [place] [address] Care Team Providers Care Attic Fans Mechanic Name Role Phone Carlos Hartman Unavailable [phone] Reason For Referral No Information Medications Medication [...]
--- OUTSIDE RECORDS SUMMARY | 2025-05-22 11:24 | XMS_ITS | Encounter Summary ---
Author Organization [facility] Address [address] [place] [address] Phone Care Team Providers Care Brass Reclaimer Name Role Phone Sherie Wright Primary Care Pro vider Marguerite Ponce DOUBLE END PRODUCTION GRINDER, TRAFFIC WORKER Unavailable +- [phone] Reason for Visit * Reason Comments Medication Refill Encounter Details Date Type Department Care Team (Late st Contact Info) Description 09/10/2023 Refill [facility] [address] [place] [address] Sherie Wright, [facility] [address] [place] [address] Medication Refill Social History Tobacco Use Types Packs/Day Years Used Date Smoking Tobacco: Former Cigarettes Smokeless Tobacco: Never Alcohol Use Standard Drinks/Week Comments Yes 0 (1 standard drink = 0.6 oz pur e alcohol) [facility] Utilities Answer Date Recorded In the past 12 months has [employer], gas, oil, or water [employer] threatened to shut off services in your home? No 07/16/2023 Social Connection and Isolation Panel Answer Date Recorded In a typical week, how many times do you talk on the phone with family, friends, or neighbors? More than three times a week 07/16/2023 How often do you get togethe r with friends or relatives? Once a week 07/16/2023 How often do you attend [facility] or yazdanism services? More than 4 times per year 07/16/2023 Do you belong to any clubs o r organizations such as anglican groups, unions, fraternal or athletic groups, or [...] medical care, and heating? Somewhat hard 07/16/2023 [facility] of Occupat ional [facility] - Occupational Stress Questionnaire Answer Date Recorded [...] place to sleep or slept in a group home (including now)? No 07/16/2023 Comments No Sex and Gender Information Value Date Recorded Sex Assigned at Female 07/04/2023 10:09 AM CLINICAL CYTOGENETICIST Legal Sex Female 1:54 PM CLINICAL CYTOGENETICIST Gender Identity Female 07/04/2023 10:09 AM CLINICAL CYTOGENETICIST Sexual Orientation Straight 07/04/2023 10 :09 AM CLINICAL CYTOGENETICIST documented as of this encounter Miscellaneous Notes * Telephone Encounter - Sherie Wright PAC - 09/10/2023 4:56 PM CST Does this pt see NEURO for seizures? What is she on the keppra for? ICAL CYTOGENETICIST * Telephone Encounter - Peggy Weeks RN [...] 07/21/23 Telemedicine Sherie Wright PAC [facility] 07/18/23 Office Visit Sherie Wright PAC [facility] 07/04/23 Office Visit Sherie Wright PAC [facility] Showing recent visits within past 365 days and meeting all other requirements Future Appointments No visits were found meeting these conditions. Showing future appointments within next 90 days and meeting all other requirements ICAL CYTOGENETICIST documented in this encounter Plan of Treatment [...] Ready to change Department associated with goal: [facility] Steps to achieve goal: [...] on filedocumented in this encounter Care Teams Brass Reclaimer Relationship Specialty Start Date End Date Sherie Wright, THOMAS PCP - General Physician Volunteer Specialist 07/04/23 04/14/24 Marguerite Ponce APRN, TRAFFIC WORKER [address] [place] [address] Nurse Practitioner Advanced Practice Nurse 07/28/23 documented as of this encounter
--- OUTSIDE RECORDS SUMMARY | 2025-05-22 11:24 | XMS_ITS | Encounter Summary ---
Author Organization [facility] Address [address] [place] [address] Phone Care Team Providers Care Crm Business Analyst Name Role Phone Sherie Wright Primary Care Pro vider Marguerite Ponce CRUISE CONSULTANT, BATTERY TESTER AND REPAIRER Unavailable +- [phone] Reason for Visit * Reason Comments Medication Refill Encounter Details Date Type Department Care Team (Late st Contact Info) Description 10/24/2023 Refill [facility] - [facility] [address] [place] [address] Sherie Wright, [facility] [address] [place] [address] Medication Refill Social History Tobacco Use Types Packs/Day Years Used Date Smoking Tobacco: Former Cigarettes Smokeless Tobacco: Never Alcohol Use Standard Drinks/Week Comments Yes 0 (1 standard drink = 0.6 oz pur e alcohol) [facility] Utilities Answer Date Recorded In the past 12 months has [employer], gas, oil, or water [employer] threatened to shut off services in your home? No 07/16/2023 Social Connection and Isolation Panel Answer Date Recorded In a typical week, how many times do you talk on the phone with family, friends, or neighbors? More than three times a week 07/16/2023 How often do you get togethe r with friends or relatives? Once a week 07/16/2023 How often do you attend [facility] or mandaeism services? More than 4 times per year 07/16/2023 Do you belong to any clubs o r organizations such as yarsanism groups, unions, fraternal or athletic groups, or [...] medical care, and heating? Somewhat hard 07/16/2023 [facility] of Occupat ional [facility] - Occupational Stress Questionnaire Answer Date [...] place to sleep or slept in a senior care (including now)? No 07/16/2023 Comments No Sex and Gender Information Value Date Recorded Sex Assigned at Female 07/04/2023 10:09 AM RN DERMATOLOGY Legal Sex Female 1:54 PM RN DERMATOLOGY Gender Identity Female 07/04/2023 10:09 AM RN DERMATOLOGY Sexual Orientation Straight 07/04/2023 10 :09 AM RN DERMATOLOGY documented as of this encounter Miscellaneous Notes [...] 10/23/23 Office Visit Sherie Wright PAC [facility] 09/29/23 Office Visit Sherie Wright PAC [facility] 07/21/23 Telemedicine Sherie Wright PAC [facility] 07/18/23 Office Visit Sherie Wright PAC [facility] 07/04/23 Office Visit Sherie Wright PAC [facility] Showing recent visits within past 365 days and meeting all other requirements Future Appointments Date Type Provider Dept 01/16/24 Appointment Sherie Wright PAC [facility] Showing future appointments within next 90 days and meeting all other requirements documented in this encounter Plan of Treatment Not on file documented as of this encounter Goals Goal Patient Goal Type Associated Problems Recent Progress Patient-Stated? Author process stressors Behavioral Health Improving( 11:03 AM CDT) Cynthia Santiago, WAREHOUSE DELIVERY DRIVER Note: Goal/Objective: Decrease anxiety and depression through processing difficulties. Anticipated Time Frame for Goal Completion: 6 months Goal Reviewed with: patient Readiness to change: Ready to change Department associated with goal: [facility] Steps to achieve [...] on filedocumented in this encounter Care Teams Crm Business Analyst Relationship Specialty Start Date End Date Sherie Wright PAC PCP - General Physician Ice Cream Vault Worker 07/04/23 04/14/24 Marguerite Ponce APRN, BATTERY TESTER AND REPAIRER [address] [place] [address] Nurse Practitioner Advanced Practice Nurse 07/28/23 documented as of this encounter
--- OUTSIDE RECORDS SUMMARY | 2025-05-22 11:24 | XMS_ITS | Clinical Summary ---
Author Organization [facility] Address [address] [place] [address] Care Team Providers Care Thread Grinder Tool Name Role Phone Jayden Diallo MD Primary Care Provider [phone] Allergies Active Allergy Reactions Criticality Noted Date [...] on file Legal Sex Female 12:46 AM RIGGING LOFT REPAIRER Gender Identity Not on file Sexual Orientation Not on file Last Filed Vital Signs Vital Sign Reading Time Taken Comments Blood Pressure 105/62 06/09/2024 4:37 PM RIGGING LOFT REPAIRER Pulse 60 06/09/2024 4:37 PM RIGGING LOFT REPAIRER Temperature 36.8 C (98.2 F) 06/09/2024 4:37 PM RIGGING LOFT REPAIRER Respiratory Rate 20 06/09/2024 4:37 PM RIGGING LOFT REPAIRER Oxygen Saturation 99% 06/09/2024 4:37 PM RIGGING LOFT REPAIRER Inhaled Oxygen Concentration - - Weight 110.2 kg (242 lb 14.4 oz) 06/09/2024 4:37 PM RIGGING LOFT REPAIRER Height 71.1 cm (2' 4) 06/09/2024 4:37 PM RIGGING LOFT REPAIRER Body Mass Index 217.83 06/09/2024 4:37 PM RIGGING LOFT REPAIRER Plan of Treatment Health Maintenance Due Date [...] complete this topic Insurance IDPA Care Teams Thread Grinder Tool Relationship Specialty Start Date End Date Jayden Diallo MD [address] [place] [address] PCP - General Family Medicine 06/09/24
--- OUTSIDE RECORDS SUMMARY | 2025-05-22 11:24 | XMS_ITS | Data Portability ---
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 Performed pap smear, Nuswab, venereal disease screening, TSH, CBC, UA, refilled medication. Follow-up in 1 month for weight loss counselling, further medication management. Not available 09/05/2023 15:29:34 Plan of Treatment Reminders Order Date Submit Date Provider Last Modified By Organization Details Last Modified Time Details Appointments None recorded. Lab urinalysis, dipstick 2023 024 [email or web address] In-Office Order, Internal Use Only DO Not Attach Compendium DO Not Attach Compendium, Do Not Delete/merge, [id number] 4 16:41:50 test, urine 2023 024 [email or web address] In-Office Order, Internal Use Only DO Not Attach Compendium DO Not Attach Compendium, Do Not Delete/merge, [id number] 4 16:41:49 HIV 1 + 2, meaningful use set 2023 024 [email or web address] [facility], [address] [place] [address], [address], [place], [address], 4 16:41:46 RPR (rapid plasma reagin), serum 2023 024 [email or web address] [facility], [address] [place] [address], [address], [place], [address], 4 16:41:46 HBsAg (hepatitis B surface Ag), EIA, serum 2023 024 [email or web address] [facility], [address] [place] [address], [address], [place], [address], 4 16:41:46 Hepatitis C IgG Ab, qual, serum 2023 024 [email or web address] [facility], [address] [place] [address], [address], [place], [address], 4 16:41:46 cytology report, thin prep, smear or scraping, cervical or vaginal 2023 024 [email or web address] [facility], [address], [address], 4 16:41:47 CBC w/ auto diff 2023 024 [email or web address] [facility], [address], [address], 4 16:41:46 vaginal pathogens panel, ARIK+probe, vaginal fluid 2023 024 [email or web address] [facility], [address], [address], 4 16:41:46 HbA1c (hemoglobin A1c), blood 2023 024 [email or web address] [facility], [address], [address], 4 16:41:46 TSH, ultra-sensi tive, serum 2023 024 [email or web address] [facility], [address], [address], 4 16:41:46 urinalysis, dipstick 2016 017 [email or web address] In-Office Order, Internal Use Only DO Not Attach Compendium DO Not Attach Compendium, Do Not Delete/merge, [id number] 7 22:36:22 bacterial vaginosis + vaginitis panel, vaginal 2016 [facility], [address] [place] [address], [address], [place], [address], 7 16:09:55 HBsAg (hepatitis B surface Ag), EIA, serum 2016 017 [facility], [address] [place] [address], [address], [place], [address], 7 07:14:48 HIV 1+2 AB + HIV 1 p24 Ag, qualitative immunoassay , serum 2016 017 [facility], [address] [place] [address], [address], [place], [address], 7 07:14:47 hsv (1+2) igg, serum 2016 017 [facility], [address] [place] [address], [address], [place], [address], 7 07:14:46 hepatitis C Ab, signal-to-c utoff, serum or plasma 2016 017 [facility], [address] [place] [address], [address], [place], [address], 7 07:14:48 RPR (rapid plasma reagin), serum 2016 017 [facility], [address] [facility], [address], [place], [address], 7 07:14:47 test, urine 2016 017 [email or web address] In-Office Order, Internal Use Only DO Not Attach Compendium DO Not Attach Compendium, Do Not Delete/merge, [id number] 7 13:16:22 bacterial vaginosis + vaginitis panel, vaginal 2016 017 [facility], [address] [facility], [address], [place], [address], 7 16:17:16 pap, IG + reflex HR HPV (16+18) 2016 017 [facility], [address] [facility], [address], [place], [address], 7 11:16:18 Referral None recorded. Procedures None recorded. Surgeries None recorded. Imaging MAMMO, diagnostic, digital, bilateral - R breast [address] (Mammography) , [address], [place], [address], 4 15:52:51 US, pelvis, complete - left sided pelvic pain 2016 017 [facility] (Radiology), [address] [facility] [place], [address], 7 16:14:10 US, pelvis, complete - iud placement 2016 017 [email or web address] [facility] (Radiology), [address] [facility] [place], [address], 7 13:34:45 Medication Orders Sprintec (28) 0.25 mg-0.035 mg tablet 2023 024 [id number], [address], [place], [place], [id number], 4 12:19:58 metformin 500 mg tablet 2023 024 [facility] #[id number], [address], [place], [place], [id number], 4 12:19:08 ibuprofen 800 mg tablet 2016 017 [facility] #01917, [address], [place], [id number], 4 10:42:40 ParaGard T 380A 380 square mm intrauterin e device 2016 017 [facility] #30739, [address], [place], [id number], 4 10:44:54 Patient TargetsNo targets recorded. Patient Instructions Encounter Date Encounter Id Patient Instructions Last Modified By Organization Details Last Modified Time 10/17/2016 [id number] When You Want to Lose Weight: Care Instructions [email or web address] Not available 10/18/2016 11:00:04 Follow up in one week for insertion of the paragard IUD. [email or web address] Not available 10/17/2016 18:02:53 Vaginitis panel and pap smear was sent. Safe sex counseling was done. Patient was advised against the use of alcohol, tobacco and drugs. BSE was reviewed and recommended. Excercise and weight loss was reviewed and recommended. Patient wants the paragard IUD for control. [email or web address] Not available 10/17/2016 18:02:27 10/24/2016 [id number] Paragard IUD was inserted without complications. Patient was instructed on how to feel for IUD strings. [email or web address] Not available 10/24/2016 13:34:08 02/05/2017 [id number] STD panel was ordered. Pelvic US was ordered. Will re-evaluate with results. [email or web address] Not available 02/05/2017 14:06:49 09/02/2023 [id number] A healthy lifestyle: care instructions [email or web address] Not available 09/05/2023 16:41:46 On the date of this encounter, I saw and examined the patient, personally verifying the king and critical findings in the resident s note. I reviewed and agree with the resident/fellow s findings and plan. ~MD Brian [email or web address] Not available 09/02/2023 11:57:02 02/02/2024 [id number] A healthy lifestyle: care instructions [email or web address] Not available 02/02/2024 20:35:34 Attending Physician Attestation I did not personally see or examine the patient with the resident. I was physically present to provide indirect supervision through entire encounter. I have reviewed the documentation and agree with the history, physical findings, work-up, and medical decision making as recorded. Hira Delatorre MD [email or web address] Not available 02/02/2024 12:32:37 Reason for Referral None Reported. Results Created Date Observation Date Name Description Value Unit Range Abnormal Flag Note LastModifiedBy Organization Detail LastModifiedTime 02/06/20 17 02/05/2017 urina lysis , dipst ick Leukocytes Negati ve Not Available In-Office Order Internal Use Only DO Not Attach Compendium DO Not Attach Compendium, Do Not Delete/merge, [id number] 02/05/2017 12:27:53 02/06/20 17 02/05/2017 urina lysis , dipst ick Nitrite negati ve Not Available In-Office Order Internal Use Only DO Not Attach Compendium DO Not Attach Compendium, Do Not Delete/merge, [id number] 02/05/2017 12:27:53 02/06/20 17 02/05/2017 urina lysis , dipst ick Urobilinogen .2 Not Available In-Of fice Order Internal Use Only DO Not Attach Compendium DO Not Attach Compendium, Do Not Delete/merge, [id number] 02/05/2017 12:27:53 02/06/20 17 02/05/2017 urina lysis , dipst ick Protein Negati ve Not Available In-Office Order Internal Use Only DO Not Attach Compendium DO Not Attach Compendium, Do Not Delete/merge, 02/05/2017 12:27:53 02/06/20 17 02/05/2017 urina lysis , dipst ick pH 6.5 Not Available In-Office Order Internal Use Only DO Not Attach Compendium DO Not Attach Compendium, Do Not Delete/merge, 02/05/2017 12:27:53 02/06/20 17 02/05/2017 urina lysis , dipst ick Blood Large Not Available In-Office Order Internal Use Only DO Not Attach Compendium DO Not Attach Compendium, Do Not Delete/merge, 02/05/2017 12:27:53 02/06/20 17 02/05/2017 urina lysis , dipst ick Specific [place] 1.020 Not Available In-Off ice Order Internal Use Only DO Not Attach Compendium DO Not Attach Compendium, Do Not Delete/merge, 02/05/2017 12:27:53 02/06/20 17 02/05/2017 urina lysis , dipst ick Ketone Negati ve Not Available In-Office Order Internal Use Only DO Not Attach Compendium DO Not Attach Compendium, Do Not Delete/merge, 02/05/2017 12:27:53 02/06/20 17 02/05/2017 urina lysis , dipst ick Bilirubin Negati ve Not Available In-Office Order Internal Use Only DO Not Attach Compendium DO Not Attach Compendium, Do Not Delete/merge, 02/05/2017 12:27:53 02/06/20 17 02/05/2017 urina lysis , dipst ick Glucose Negati ve Not Available In-Office Order Internal Use Only DO Not Attach Compendium DO Not Attach Compendium, Do Not Delete/merge, 02/05/2017 12:27:53 02/06/20 17 02/05/2017 urina lysis , dipst ick Appearance Clear Not Available In-Offi ce Order Internal Use Only DO Not Attach Compendium DO Not Attach Compendium, Do Not Delete/merge, 02/05/2017 12:27:53 02/06/20 17 02/05/2017 urina lysis , dipst ick Color Yellow Not Available In-Office Order Internal Use Only DO Not Attach Compendium DO Not Attach Compendium, Do Not Delete/merge, [id number] 02/05/2017 12:27:53 10/25/19 17 10/24/2016 pregn sera test, urine HCG negati ve Not Available In-Office Order Internal Use Only DO Not Attach Compendium DO Not Attach Compendium, Do Not Delete/merge, [id number] 10/24/2016 10:30:20 10/18/19 17 10/19/2016 bacte rial vagin osis + vagin itis panel , vagin al chlamydia trachomatis, ARIK NEGATI VE negati ve Not Available [facility] ([facility]) [address] [place], [address], 10/21/2016 16:17:16 10/18/19 17 10/19/2016 bacte rial vagin osis + vagin itis panel , vagin al neisseria gonorrhoeae, ARIK NEGATI VE negati ve Not Available [facility] ([facility]) [address] [place], [address], 10/21/2016 16:17:16 10/18/19 17 10/20/2016 bacte rial vagin osis + vagin itis panel , vagin al trich vag by ARIK NEGATI VE negati ve Not Available [facility] ([facility]) [address] [place], [address], 10/21/2016 16:17:16 10/18/19 17 10/21/2016 bacte rial vagin osis + vagin itis panel , vagin al atopobium vaginae LOW - 0 score Not Available [facility] ([facility]) [address] [place], [address], 10/21/2016 16:17:16 10/18/19 17 10/21/2016 bacte rial vagin osis + vagin itis panel , vagin al bvab 2 LOW - 0 score Not Available [facility] ([facility]) [address] [place], [address], 10/21/2016 16:17:16 04/06/20 17 10/21/2016 bacte rial vagin osis + vagin itis panel , vagin al megasphaera 1 LOW - 0 score CALCU LATE TOTAL SCORE BY MEGAN Valenzuela THE 3 INDIV IDUAL BACTE RIAL VAGIN OSIS (BV) MARKE R SCORE S TOGET HER. TOTAL SCORE IS INTER PRETE D FOLLO WS: TOTAL SCORE 0-1: INDIC ATES THE ABSEN CE OF BV. TOTAL SCORE 2: INDET ERMIN ATE FOR BV. ADDIT IONAL CLINI JOHANNA DATA SHOUL D BE EVALU ATED TO ESTAB SARKIS A DIAGN OSIS. TOTAL SCORE 3-6: INDIC ATES THE PRESE NCE OF BV. THIS TEST WAS DEVEL OPED AND ITS PERFO RMANC E OSMAR CTERI STICS DETER MINED BY [employer]. IT HAS NOT BEEN CLEAR ED OR APPRO ALISA BY THE FOOD AND DRUG ADMIN ISTRA TION. THE FDA HAS DETER MINED THAT SUCH CLEAR ANCE OR APPRO AYE IS NOT NECES [place]. Not Available [facility] ([facility]) [address] [place], [address], 10/21/2016 16:17:16 10/18/19 17 10/21/2016 bacte rial vagin osis + vagin itis panel , vagin al rosie albicans, ARIK POSITI VE negati ve abnormal Not Available [facility] ([facility]) [address] [place], [address], 10/21/2016 16:17:16 10/18/19 17 10/21/2016 bacte rial vagin osis + vagin itis panel , vagin al rosie glabrata, ARIK NEGATI VE negati ve THIS TEST WAS DEVEL OPED AND ITS PERFO RMANC E OSMAR CTERI STICS DETER MINED BY [employer] [facility]. IT HAS NOT BEEN CLEAR ED OR APPRO ALISA BY THE FOOD AND DRUG ADMIN ISTRA TION. THE FDA HAS DETER MINED THAT SUCH CLEAR ANCE OR APPRO AYE IS NOT NECES [place]. Not Available [facility] ([facility]) [address] [place], [address], 10/21/2016 16:17:16 10/18/19 17 10/21/2016 pap, IG + refle x HR HPV (16+1 8) HPV, high-risk NEGATI VE negati ve THIS HIGH- RISK HPV TEST DETEC TS THIRT EEN HIGH- RISK TYPES (16/1 8/31/ 33/35 /39/4 5/51/ 52/56 /58/5 ) WITHO UT DIFFE RENTI ATION . Not Available [facility] ([facility]) [address] [facility], [place], [address], 10/22/2016 11:16:18 10/18/19 17 10/22/2016 pap, IG + refle x HR HPV (16+1 8) diagnosis: COMMEN T NEGAT ELENA FOR INTRA EPITH ELIAL TOYA N AND JOSELINE ARRINGTON . FUNGA L ORGAN ISMS MORPH OLOGI AMBROSE CONSI STENT WITH HARSHAD DA SPECI ES ARE PRESE NT. CELLU LAR ALDRIDGE ES ASSOC IATED WITH INFLA MMATI ON ARE PRESE NT. THIS SPECI MEN WAS RESCR EENED PART OF OUR QUALI TY CONTR OL PROGR AM. Not Available [facility] ([facility]) [address] [facility], [place], [address], 10/22/2016 11:16:18 10/18/19 17 10/22/2016 pap, IG + refle x HR HPV (16+1 8) specimen adequacy: COMMEN T SATIS FACTO RY FOR EVALU ATION . ENDOC ERVIC AL AND/O R SQUAM OUS METAP LASTI C CELLS (ENDO CERVI JOHANNA COMPO NENT) ARE PRESE NT. Not Available [facility] ([facility]) [address] [facility], [place], [address], 10/22/2016 11:16:18 10/18/19 17 10/22/2016 pap, IG + refle x HR HPV (16+1 8) clinician provided ICD10: COMMEN T N89.8 Z01.4 19 Not Available [facility] ([facility]) [address] [facility], [place], [address], 10/22/2016 11:16:18 10/18/19 17 10/22/2016 pap, IG + refle x HR HPV (16+1 8) performed by: AMIRA LONGORIA , CYTOT ECHNO LOGIS T (ASCP ) Not Available [facility] ([facility]) [address] [place], [address], 10/22/2016 11:16:18 10/18/19 17 10/22/2016 pap, IG + refle x HR HPV (16+1 8) QC reviewed by: AMIRA BALLARD N, SUPER VISOR Y CYTOT ECHNO LOGIS T (ASCP ) Not Available [facility] ([facility]) [address] [place], [address], 10/22/2016 11:16:18 10/18/19 17 10/22/2016 pap, IG + refle x HR HPV (16+1 8) . . Not Available [facility] ([facility]) [address] [place], [address], 10/22/2016 11:16:18 10/18/19 17 10/22/2016 pap, IG + refle x HR HPV (16+1 8) pathologist provided ICD10: AMIRA Velásquez R87.5 Not Available [facility] ([facility]) [address] [place], [address], 10/22/2016 11:16:18 10/18/19 17 10/22/2016 pap, IG + refle x HR HPV (16+1 8) note: AMIRA Velásquez THE PAP SMEAR IS A SCREE AL TEST DESIG ALEX TO AID IN THE DETEC TION OF FRANCIS LIGNA NT AND MALIG NANT CONDI TIONS OF THE UTERI NE CERVI X. IT IS NOT A DIAGN OSTIC PROCE DURE AND SHOUL D NOT BE USED THE SOLE MEANS OF DETEC TING CERVI JOHANNA CANCE R. BOTH FALSE -POSI TIVE AND FALSE -NEGA TIVE REPOR TS DO OCCUR . Not Available [facility] ([facility]) [address] [facility], [place], [address], 10/22/2016 11:16:18 10/18/19 17 10/22/2016 pap, IG + refle x HR HPV (16+1 8) test methodology: COMMEN T THIS LIQUI D BASED THINP REP(R ) PAP TEST WAS GRACE JASSO WITH THE USE OF AN IMAGE GUIDE Arabella Cunningham. Not Available [facility] ([facility]) [address] [facility], [place], [address], 10/22/2016 11:16:18 02/06/20 17 02/06/2017 hsv (1+2) igg, serum hsv 1 IgG, type spec 26.10 index 0.00-0 .90 above high normal NEGAT ELENA <0.91 EQUIV OCAL 0.91 - 1.09 POSIT ELENA >1.09 NOTE: NEGAT ELENA INDIC ATES NO ANTIB ODIES DETEC DANIEL TO HSV-1 . EQUIV OCAL MAY SUGGE ST EARLY INFEC TION. IF CLINI AMBROSE APPRO PRIAT E, RETES T AT LATER DATE. POSIT ELENA INDIC ATES ANTIB ODIES DETEC DANIEL TO HSV-1 . Not Available [facility] ([facility]) [address] [facility], [place], [address], 02/06/2017 07:14:46 02/06/20 17 02/06/2017 hsv (1+2) igg, serum hsv 2 IgG, type spec <0.91 index 0.00-0 .90 NEGAT ELENA <0.91 EQUIV OCAL 0.91 - 1.09 POSIT ELENA >1.09 NOTE: NEGAT ELENA INDIC ATES NO ANTIB ODIES DETEC DANIEL TO HSV-2 . EQUIV OCAL MAY SUGGE ST EARLY INFEC TION. IF CLINI AMBROSE APPRO PRIAT E, RETES T AT LATER DATE. POSIT ELENA INDIC ATES ANTIB ODIES DETEC DANIEL TO HSV-2 . Not Available [facility] ([facility]) [address] [facility], [place], [address], 02/06/2017 07:14:46 02/06/20 17 02/06/2017 RPR (rapi d plasm a reagi n), serum RPR NON REACTI VE non reacti ve Not Available [facility] ([facility]) [address] [facility], [place], [address], 02/06/2017 07:14:47 02/06/20 17 02/06/2017 HIV 1+2 AB + HIV 1 p24 Ag, quali tativ e immun oassa y, serum HIV screen 4TH generation wrfx NON REACTI VE non reacti ve Not Available [facility] ([facility]) [address] [facility], [place], [address], 02/06/2017 07:14:47 02/06/20 17 02/05/2017 hepat itis C Ab, signa l-to- cutof f, serum or plasm a comment: COMMEN T NON REACT ELENA HCV ANTIB SHILO SCREE N IS CONSI STENT WITH NO HCV INFEC TION, UNLES S RECEN T INFEC TION IS SUSPE CTED OR OTHER EVIDE NCE EXIST S TO INDIC ATE HCV INFEC TION. Not Available [facility] ([facility]) [address] [facility], [place], [address], 02/06/2017 07:14:48 02/06/20 17 02/06/2017 hepat itis C Ab, signa l-to- cutof f, serum or plasm a HCV Ab 0.1 S/co_ ratio 0.0-0. 9 Not Available [facility] ([facility]) [address] [facility], [place], [address], 02/06/2017 07:14:48 02/06/2002/06/2017 HBsAg (hepa titis B surfa ce Ag), EIA, serum HBsAg screen NEGATI VE negati ve Not Available [facility] ([facility]) [address] [place] [address], [place], [address], 02/06/2017 07:14:48 02/06/20 17 02/07/2017 bacte rial vagin osis + vagin itis panel , vagin al trich vag by ARIK NEGATI VE negati ve Not Available [facility] ([facility]) [address] [place], [address], 02/08/2017 16:09:55 02/06/20 17 02/08/2017 bacte rial vagin osis + vagin itis panel , vagin al atopobium vaginae LOW - 0 score Not Available [facility] ([facility]) [address] [place], [address], 02/08/2017 16:09:55 02/06/20 17 02/08/2017 bacte rial vagin osis + vagin itis panel , vagin al bvab 2 LOW - 0 score Not Available [facility] ([facility]) [address] [place], [address], 02/08/2017 16:09:55 02/06/20 17 02/08/2017 bacte rial vagin osis + vagin itis panel , vagin al megasphaera 1 HIGH - 2 score abnormal CALCU LATE TOTAL SCORE BY MEGAN Valenzuela THE 3 INDIV IDUAL BACTE RIAL VAGIN OSIS (BV) MARKE R SCORE S TOGET HER. TOTAL SCORE IS INTER PRETE D FOLLO WS: TOTAL SCORE 0-1: INDIC ATES THE ABSEN CE OF BV. TOTAL SCORE 2: INDET ERMIN ATE FOR BV. ADDIT IONAL CLINI JOHANNA DATA SHOUL D BE EVALU ATED TO ESTAB SARKIS A DIAGN OSIS. TOTAL SCORE 3-6: INDIC ATES THE PRESE NCE OF BV. THIS TEST WAS DEVEL OPED AND ITS PERFO RMANC E OSMAR CTERI STICS DETER MINED BY [facility]. IT HAS NOT BEEN CLEAR ED OR APPRO ALISA BY THE FOOD AND DRUG ADMIN ISTRA TION. THE FDA HAS DETER MINED THAT SUCH CLEAR ANCE OR APPRO AYE IS NOT NECES [place]. Not Available [facility] ([facility]) [address] [place], [address], 02/08/2017 16:09:55 02/06/20 17 02/08/2017 bacte rial vagin osis + vagin itis panel , vagin al rosie albicans, ARIK NEGATI VE negati ve Not Available [facility] ([facility]) [address] [place], [address], 02/08/2017 16:09:55 02/06/20 17 02/08/2017 bacte rial vagin osis + vagin itis panel , vagin al rosie glabrata, ARIK NEGATI VE negati ve THIS TEST WAS DEVEL OPED AND ITS PERFO RMANC E OSMAR CTERI STICS DETER MINED BY [facility]. IT HAS NOT BEEN CLEAR ED OR APPRO ALISA BY THE FOOD AND DRUG ADMIN ISTRA TION. THE FDA HAS DETER MINED THAT SUCH CLEAR ANCE OR APPRO AYE IS NOT NECES [place]. Not Available [facility] ([facility]) [address] [facility], [place], [address], 02/08/2017 16:09:55 02/06/20 17 02/08/2017 bacte rial vagin osis + vagin itis panel , vagin al chlamydia trachomatis, ARIK NEGATI VE negati ve Not Available [facility] ([facility]) [address] [place], [address], 02/08/2017 16:09:55 02/06/20 17 02/08/2017 bacte rial vagin osis + vagin itis panel , vagin al neisseria gonorrhoeae, ARIK NEGATI VE negati ve Not Available [facility] ([facility]) [address] [place], [address], 02/08/2017 16:09:55 09/02/19 24 09/02/2023 CBC WITH DIFFE RENTI AL/PL ATELE T WBC 6.8 x10e3 /uL 3.4-10 .8 Not Available [facility] [address] [place], [address], 09/03/2023 06:16:21 09/02/19 24 09/02/2023 CBC WITH DIFFE RENTI AL/PL ATELE T RBC 3.88 x10e6 /uL 3.77-5 .28 Not Available [facility] Department [address] [place], [address], 09/03/2023 06:16:21 09/02/19 24 09/02/2023 CBC WITH DIFFE RENTI AL/PL ATELE T hemoglobin 12.2 g/dL 11.1-1 5.9 Not Available [facility] Department [address] [place], [address], 09/03/2023 06:16:21 09/02/19 24 09/02/2023 CBC WITH DIFFE RENTI AL/PL ATELE T hematocrit 38.0 % 34.0-4 6.6 Not Available [facility] Department [address] [place], [address], 09/03/2023 06:16:21 09/02/19 24 09/02/2023 CBC WITH DIFFE RENTI AL/PL ATELE T MCV 98 fL 79-97 above high normal Not Available [facility] Department [address] [place], [address], 09/03/2023 06:16:21 09/02/19 24 09/02/2023 CBC WITH DIFFE RENTI AL/PL ATELE T MCH 31.4 pg 26.6-3 3.0 Not Available [facility] Department [address] [place], [address], 09/03/2023 06:16:21 09/02/19 24 09/02/2023 CBC WITH DIFFE RENTI AL/PL ATELE T MCHC 32.1 g/dL 31.5-3 5.7 Not Available [facility] Department [address] [place], [address], 09/03/2023 06:16:21 09/02/19 24 09/02/2023 CBC WITH DIFFE RENTI AL/PL ATELE T RDW 13.3 % 11.5-1 4.5 Not Available [facility] Department [address] [place], [address], 09/03/2023 06:16:21 09/02/19 24 09/02/2023 CBC WITH DIFFE RENTI AL/PL ATELE T platelets 341 x10e3 /uL 150-45 0 Not Available [facility] Department [address] [place], [address], 09/03/2023 06:16:21 09/02/19 24 09/02/2023 CBC WITH DIFFE RENTI AL/PL ATELE T neutrophils 40 % notest b. Not Available [facility] Department [address] [place], [address], 09/03/2023 06:16:21 09/02/19 24 09/02/2023 CBC WITH DIFFE RENTI AL/PL ATELE T lymphs 51 % notest b. Not Available [facility] Department [address] [place], [address], 09/03/2023 06:16:21 09/02/19 24 09/02/2023 CBC WITH DIFFE RENTI AL/PL ATELE T monocytes 7 % notest b. Not Available [facility] Department [address] [place], [address], 09/03/2023 06:16:21 09/02/19 24 09/02/2023 CBC WITH DIFFE RENTI AL/PL ATELE T eos 1 % notest b. Not Available [facility] Department [address] [place], [address], 09/03/2023 06:16:21 09/02/19 24 09/02/2023 CBC WITH DIFFE RENTI AL/PL ATELE T basos 0 % notest b. Not Available [facility] Department [address] [place], [address], 09/03/2023 06:16:21 09/02/19 24 09/02/2023 CBC WITH DIFFE RENTI AL/PL ATELE T neutrophils (absolute) 2.7 x10e3 /uL 1.4-7. 0 Not Available [facility] Department [address] [place], [address], 09/03/2023 06:16:21 09/02/19 24 09/02/2023 CBC WITH DIFFE RENTI AL/PL ATELE T lymphs (absolute) 3.5 x10e3 /uL 0.7-3. 1 above high normal Not Available [facility] Department [address] [place], [address], 09/03/2023 06:16:21 09/02/19 24 09/02/2023 CBC WITH DIFFE RENTI AL/PL ATELE T monocytes(ab solute) 0.5 x10e3 /uL 0.1-0. 9 Not Available [facility] Department [address] [place], [address], 09/03/2023 06:16:21 09/02/19 24 09/02/2023 CBC WITH DIFFE RENTI AL/PL ATELE T eos (absolute) 0.1 x10e3 /uL 0.0-0. 4 Not Available [facility] Department [address] [place], [address], 09/03/2023 06:16:21 09/02/19 24 09/02/2023 CBC WITH DIFFE RENTI AL/PL ATELE T baso (absolute) 0.0 x10e3 /uL 0.0-0. 2 Not Available [facility] Department [address] [place], [address], 09/03/2023 06:16:21 09/02/19 24 09/02/2023 CBC WITH DIFFE RENTI AL/PL ATELE T immature granulocytes 0.3 % notest b. Not Available [facility] Department [address] [place], [address], 09/03/2023 06:16:21 09/02/19 24 09/02/2023 CBC WITH DIFFE RENTI AL/PL ATELE T immature grans (abs) 0.0 x10e3 /uL 0.0-0. 1 Not Available [facility] Department [address] [place], [address], 09/03/2023 06:16:21 09/02/19 24 09/02/2023 CBC WITH DIFFE RENTI AL/PL ATELE T NRBC 0 % 0-0 Not Available [facility] Department [address] [facility], [place], [address], 09/03/2023 06:16:21 09/02/19 24 09/03/2023 INTER PRETA TION: interpretati on: Commen t Not infec daniel with HCV unles s early or acute infec tion is suspe cted (whic h may be delay ed in an immun ocomp romis ed indiv idual ), or other evide nce exist s to indic ate HCV infec tion. Not Available [facility] ([facility]) [address] [facility], [place], [address], 09/03/2023 13:10:18 09/02/19 24 09/03/2023 HCV ANTIB SHILO RFX TO QUANT PCR HCV Ab Non Reacti ve nonrea ctive Not Available [facility] ([facility]) [address] [place], [address], 09/03/2023 13:10:19 09/02/19 24 09/03/2023 TSH RFX ON ABNOR MAL TO FREE T4 TSH 0.839 uIU/m L 0.450- 4.500 Not Available [facility] ([facility]) [address] [facility], [place], [address], 09/03/2023 13:10:20 09/02/19 24 09/03/2023 HEMOG LOBIN A1C hemoglobin A1C 5.5 % 4.8-5. 6 Predi abete s: 5.7 - 6.4 Diabe britt: >6.4 Glyce sarah contr ol for adult s with diabe britt: <7.0 Not Available [facility] ([facility]) [address] [place], [address], 09/03/2023 13:10:21 09/02/19 24 09/03/2023 HBSAG SCREE N HBsAg screen Negati ve negati ve Not Available [facility] ([facility]) [address] [place], [address], 09/03/2023 13:10:22 09/02/19 24 09/03/2023 RPR, RFX QN RPR/C ONFIR M TP RPR Non Reacti ve nonrea ctive Not Available [facility] ([facility]) [address] [place], [address], 09/03/2023 13:10:22 09/02/19 24 09/03/2023 HIV AB/P2 4 AG WITH REFLE X HIV Ab/P24 Ag screen Non Reacti ve nonrea ctive HIV Negat elena HIV-1 /HIV- 2 antib odies and HIV-1 p24 antig en were NOT detec daniel. There is no labor atory evide nce of HIV infec tion. Not Available [facility] ([facility]) [address] [place], [address], 09/03/2023 13:10:23 09/02/19 24 09/03/2023 NUSWA B VAGIN ITIS PLUS (VG+) atopobium vaginae Low - 0 score Not Available [facility] ([facility]) [address] [place], [address], 09/05/2023 06:15:45 09/02/19 24 09/03/2023 NUSWA B VAGIN ITIS PLUS (VG+) bvab 2 Low - 0 score Not Available [facility] ([facility]) [address] [place], [address], 09/05/2023 06:15:45 09/02/19 24 09/03/2023 NUSWA B VAGIN ITIS PLUS (VG+) megasphaera 1 Low - 0 score Calcu late total score by megan valenzuela the 3 indiv idual bacte rial vagin osis (BV) marke r score s toget her. Total score is inter prete d as follo ws: Total score 0-1: Indic ates the absen ce of BV. Total score 2: Indet ermin ate for BV. Addit ional clini johanna data shoul d be evalu ated to estab sarkis a diagn osis. Total score 3-6: Indic ates the prese nce of BV. This test was devel oped and its perfo rmanc e osmar cteri stics deter mined by [facility]. It has not been clear ed or appro alisa by the Food and Drug Admin istra tion. Not Available [facility] ([facility]) [address] [place], [address], 09/05/2023 06:15:45 09/02/19 24 09/03/2023 NUSWA B VAGIN ITIS PLUS (VG+) rosie albicans, ARIK Negati ve negati ve Not Available [facility] ([facility]) [address] [place], [address], 09/05/2023 06:15:45 09/02/19 24 09/03/2023 NUSWA B VAGIN ITIS PLUS (VG+) rosie glabrata, ARIK Negati ve negati ve Not Available [facility] ([facility]) [address] [place], [address], 09/05/2023 06:15:45 09/02/19 24 09/04/2023 NUSWA B VAGIN ITIS PLUS (VG+) trich vag by ARIK Negati ve negati ve Not Available [facility] ([facility]) [address] [place], [address], 09/05/2023 06:15:45 09/02/19 24 09/04/2023 NUSWA B VAGIN ITIS PLUS (VG+) chlamydia trachomatis, ARIK Negati ve negati ve Not Available [facility] ([facility]) [address] [facility], [place], [address], 09/05/2023 06:15:45 09/02/19 24 09/04/2023 NUSWA B VAGIN ITIS PLUS (VG+) neisseria gonorrhoeae, ARIK Negati ve negati ve Not Available [facility] ([facility]) [address] [facility], [place], [address], 09/05/2023 06:15:45 09/02/19 24 09/03/2023 IGP, APTIM A HPV, RFX 16/18 ,45 HPV aptima Negati ve negati ve This nucle ic acid ampli ficat ion test detec ts fourt een high- risk HPV types (16,1 8,31, 33,35 ,39,4 5,51, 52,56 ,58,5 9,66, 68) witho ut diffe renti ation . Not Available [facility] ([facility]) [address] [facility], [place], [address], 09/05/2023 10:16:49 09/02/19 24 09/05/2023 IGP, APTIM A HPV, RFX 16/18 ,45 diagnosis: Commen t NEGAT ELENA FOR INTRA EPITH ELIAL LESIO N OR MALIG MURPHY . FUNGA L ORGAN ISMS MORPH OLOGI AMBROSE CONSI STENT WITH HARSHAD DA SPECI ES ARE PRESE NT. Not Available [facility] ([facility]) [address] [facility], [place], [address], 09/05/2023 10:16:49 09/02/19 24 09/05/2023 IGP, APTIM A HPV, RFX 16/18 ,45 specimen adequacy: Commen t Satis facto ry for evalu ation . Endoc ervic al and/o r squam ous metap lasti c cells (endo cervi johanna compo nent) are prese nt. Not Available [facility] ([facility]) [address] [place], [address], 09/05/2023 10:16:49 09/02/19 24 09/05/2023 IGP, APTIM A HPV, RFX 16/18 ,45 clinician provided ICD10: Amira velásquez Z12.4 Not Available [facility] ([facility]) [address] [place], [address], 09/05/2023 10:16:49 09/02/19 24 09/05/2023 IGP, APTIM A HPV, RFX 16/18 ,45 performed by: Amira gallegos, Radha velásquez (ASCP ) Not Available [facility] ([facility]) [address] [place], [address], 09/05/2023 10:16:49 09/02/19 24 09/05/2023 IGP, APTIM A HPV, RFX 16/18 ,45 . . Not Available [facility] ([facility]) [address] [place], [address], 09/05/2023 10:16:49 09/02/19 24 09/05/2023 IGP, APTIM A HPV, RFX 16/18 ,45 note: Amira velásquez The Pap smear is a scree al test trinidad jasso to aid in the detec tion of francis ligna nt and malig nant condi tions of the uteri ne cervi x. It is not a diagn ostic proce dure and shoul d not be used as the sole means of detec ting cervi johanna cance r. Both false -posi tive and false -nega tive repor ts do occur . Not Available [facility] ([facility]) [address] [facility], [place], [address], 09/05/2023 10:16:49 09/02/19 24 09/05/2023 IGP, APTIM A HPV, RFX 16/18 ,45 test methodology: Commen t This liqui d based ThinP rep(R ) pap test was grace jasso with the use of an image guide arabella mendoza Not Available [facility] ([facility]) [address] [facility], [place], [address], 09/05/2023 10:16:49 09/02/19 24 09/05/2023 IGP, APTIM A HPV, RFX 16/18 ,45 HPV genotype reflex Commen t Crite bo not met, HPV Genot ype not perfo rmed. Not Available [facility] ([facility]) [address] [facility], [place], [address], 09/05/2023 10:16:49 09/02/19 24 09/02/2023 pregn sera test, urine HCG negati ve Not Available In-Office Order Internal Use Only DO Not Attach Compendium DO Not Attach Compendium, Do Not Delete/merge, 09/02/2023 14:20:04 09/02/19 24 09/02/2023 urina lysis , dipst ick Leukocytes Negati ve Not Available In-Office Order Internal Use Only DO Not Attach Compendium DO Not Attach Compendium, Do Not Delete/merge, 09/02/2023 12:10:42 09/02/19 24 09/02/2023 urina lysis , dipst ick Nitrite negati ve Not Available In-Office Order Internal Use Only DO Not Attach Compendium DO Not Attach Compendium, Do Not Delete/merge, 09/02/2023 12:10:42 09/02/19 24 09/02/2023 urina lysis , dipst ick Urobilinogen .2 Not Available In-Of fice Order Internal Use Only DO Not Attach Compendium DO Not Attach Compendium, Do Not Delete/merge, 09/02/2023 12:10:42 09/02/19 24 09/02/2023 urina lysis , dipst ick Protein Negati ve Not Available In-Office Order Internal Use Only DO Not Attach Compendium DO Not Attach Compendium, Do Not Delete/merge, 09/02/2023 12:10:42 09/02/19 24 09/02/2023 urina lysis , dipst ick pH 7.0 Not Available In-Office Order Internal Use Only DO Not Attach Compendium DO Not Attach Compendium, Do Not Delete/merge, 09/02/2023 12:10:42 09/02/19 24 09/02/2023 urina lysis , dipst ick Blood Negati ve Not Available In-Office Order Internal Use Only DO Not Attach Compendium DO Not Attach Compendium, Do Not Delete/merge, 09/02/2023 12:10:42 09/02/19 24 09/02/2023 urina lysis , dipst ick Specific [place] 1.015 Not Available In-Off ice Order Internal Use Only DO Not Attach Compendium DO Not Attach Compendium, Do Not Delete/merge, 09/02/2023 12:10:42 09/02/19 24 09/02/2023 urina lysis , dipst ick Ketone Negati ve Not Available In-Office Order Internal Use Only DO Not Attach Compendium DO Not Attach Compendium, Do Not Delete/merge, 09/02/2023 12:10:42 09/02/19 24 09/02/2023 urina lysis , dipst ick Bilirubin Negati ve Not Available In-Office Order Internal Use Only DO Not Attach Compendium DO Not Attach Compendium, Do Not Delete/merge, 09/02/2023 12:10:42 09/02/19 24 09/02/2023 urina lysis , dipst ick Glucose Negati ve Not Available In-Office Order Internal Use Only DO Not Attach Compendium DO Not Attach Compendium, Do Not Delete/merge, 09/02/2023 12:10:42 02/18/20 17 02/17/2017 [place], jayme s, compl ete No observ ation record ed. [id number] [place], [address], 02/25/2017 10:55:50 Result Notes None recorded. Problems Name Problem SNOMED Code Status Onset Date Resolution Date Notes Provider Name and Address Organization Details Recorded Time Morbid obesity 245681576 Active Lydia Rodriguez MD Attn: Ardenlaura valenzuela,[address] [facility], [place], [address], [place] - [facility] 4 16:42:16 Mixed anxiety and depressi ve disorder 279536744 Active Lydia Rodriguez MD Attn: Ardenlaura valenzuela,[address] [facility], [place], [address], [place] [facility] 4 16:41:51 Epilepsy 51221552 Active Lydia Rodriguez MD Attn: Kristin bianca,[address] [facility], [place], [address], [place] [facility] 4 16:40:51 Contrace ption care Completed 09/05/2023 patient had a baby 8 months ago would like birthcont rol Lydia Rodriguez MD Attn: Kristin bianca,[address] [facility], [place], [address], [place] [facility] 4 16:40:41 Bacteria l vaginosi s 405363679 Active Lydia Rodriguez MD Attn: Kristin bianca,[address] [facility], [place], [address], [place] [facility] 4 16:39:53 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 2023 Lydia Rodriguez MD Attn: Kristin bianca,[address] [facility], [place], [address], [place] [facility] 4 16:42:12 Venereal disease screenin g Active 2023 Lydia Rodriguez MD Attn: Kristin bianca,[address] [facility], [place], [address] [facility] 4 16:39:13 Obesity 043827191 Active 2023 Lydia Rodriguez MD Attn: Kristin bianca,[address] [facility], [place], [address] [facility] 4 16:42:14 Mood disorder 26587272 Active 2023 Lydia Rodriguez MD Attn: Kristin valenzuela,[address] [facility], [place], [address], [place] [facility] 4 16:42:22 Insomnia 056984052 Active 2023 Lydia Rodriguez MD Attn: Kristin valenzuela,[address] [facility], [place], [address] [facility] 4 16:41:01 Dysuria 15442346 Active 2023 Lydia Rodriguez MD Attn: Kristin valenzuela,[address] [facility], [place], [address] [facility] 4 16:40:46 Fatigue 54134312 Active 2023 Lydia Rodriguez MD Attn: Kristin valenzuela,[address] [facility], [place], [address] [facility] 4 16:40:56 Bradycar sue 84327104 Active 2023 Lydia Rodriguez MD Attn: Kristin valenzuela,[address] [facility], [place], [address], [place] [facility] 4 16:39:29 Skin irritati on 586675159 Active 2023 Lydia Rodriguez MD Attn: Kristin valenzuela,[address] [facility], [place], [address], [place] [facility] 4 16:42:09 Vaginal discharg e 246613028 Active 2023 Lydia Rodriguez MD Attn: Kristin valenzuela,[address] [facility], [place], [address], [place] [facility] 4 16:42:04 Screenin g for malignan t neoplasm of cervix Active 2023 Lydia Rodriguez MD Attn: Kristin valenzuela,[address] [facility], [place], [address], [place] [facility] 4 16:39:39 Gynecolo gic examinat ion Active 2023 Lydia Rodriguez MD Attn: Kristin valenzuela,[address] [facility], [place], [address], [facility] 4 16:39:42 Contrace ption care Active 2023 Lydia Rodriguez MD Attn: Kristin valenzuela,[address] [facility], [place], [address], [facility] 4 16:40:41 Problem Notes None recorded. Procedures Surgical History Date Name Laterality Status Provider Name and Address Organization Details Recorded Time 7 IUD Insertion completed Ritu Carbajal MD Attn: Accounting, [facility], [place], [address], [facility] 10/24/2016 11:42:40 5 Caesarean Section completed Juan Belcher MA [facility] 06/29/2015 15:25:51 Imaging Results None recorded. Procedure Notes None recorded. Medical Equipment None Reported. Allergies Allergen ID Allergen Name Allergen Category Reaction Reaction Severity Criticality Documentation Date Start Date Code Code System Note Provider Name and Address Organization Details Recorded Time 32790 codeine medicatio n nausea Not available Not available 06/29/2015 2670 RxNorm Juan Belcher MA null, [facility] 5 15:25:51 Medications Name Sig Start Date Stop Date Status Note LastModified by Organization Details LastModified Time metformin 500 mg tablet Take 1 tablet twice a day by oral route for 30 days. 02/01 completed Not Available Not Available Not Available promethazin e-DM 6.25 mg-15 mg/5 mL oral syrup 02/01 completed Not Available Not Available Not Available oxazepam 10 mg capsule TAKE 1 CAPSULE BY MOUTH TWICE DAILY NEEDED FOR ANXIETY. AVOID DRIVING / OPERATING MACHINERY active Not Available Not Available No t Available lamotrigine 200 mg tablet TAKE 1 TABLET BY MOUTH TWICE DAILY active Not Available Not Available No t Available loperamide 2 mg capsule 09/02 completed Not Available Not Available Not Available cetirizine 10 mg tablet TAKE 1 TABLET BY MOUTH EVERY DAY active Not Available Not Available No t Available azithromyci n 250 mg tablet TAKE 2 TABLETS BY MOUTH FOR 1 DAY THEN TAKE 1 TABLET BY MOUTH DAILY FOR 4 DAYS 09/02 completed Not Available Not Available Not Available ibuprofen 800 mg tablet TAKE 1 TABLET BY MOUTH EVERY 8 HOURS NEEDED 09/02 completed Not Available Not Available Not Available benzonatate 200 mg capsule TAKE 1 CAPSULE BY MOUTH THREE TIMES DAILY NEEDED FOR COUGH 02/01 completed Not Available Not Available Not Available levetiracet am 500 mg tablet TAKE 1 TABLET BY MOUTH TWICE DAILY 02/01 completed Not Available Not Available Not Available phenazopyri dine 200 mg tablet 09/02 completed Not Available Not Available Not Available famotidine 40 mg tablet TAKE 1 TABLET BY MOUTH DAILY 02/01 completed Not Available Not Available Not Available prednisone 20 mg tablet TAKE 1 TABLET BY MOUTH TWICE DAILY FOR 5 DAYS 09/02 completed Not Available Not Available Not Available dextroamphe tamine-amph etamine 10 mg tablet TAKE 1 TABLET BY MOUTH IN THE MORNING AND 1/2 TABLET IN THE EVENING active Not Available Not Available No t Available phentermine 15 mg capsule Take 1 capsule every day by oral route for 30 days. 02/01 completed Not Available Not Available Not Available Diflucan 150 mg tablet Take 1 tablet by oral route as directed for 1 day. 09/02 completed Not Available Not Available Not Available topiramate 25 mg tablet TAKE 1 TABLET BY MOUTH TWICE DAILY 02/01 completed Not Available Not Available Not Available metronidazo le 500 mg tablet TAKE 1 TABLET BY MOUTH TWICE DAILY FOR 7 DAYS 09/02 completed Not Available Not Available Not Available sulfamethox azole 800 mg-trimetho prim 160 mg tablet 02/01 completed Not Available Not Available Not Available amoxicillin 500 mg tablet TAKE 1 TABLET BY MOUTH THREE TIMES DAILY 02/01 completed Not Available Not Available Not Available propranolol 40 mg tablet TAKE 1 TABLET BY MOUTH TWICE DAILY active Not Available Not Available No t Available amoxicillin 875 mg tablet 09/02 completed Not Available Not Available Not Available levetiracet am 250 mg tablet TAKE 2 TABLETS BY MOUTH TWICE DAILY active Not Available Not Available No t Available benzonatate 100 mg capsule 09/02 completed Not Available Not Available Not Available pantoprazol e 40 mg tablet,javier yed release TAKE 1 TABLET BY MOUTH DAILY NEEDED FOR HEARTBURN active Not Available Not Available No t Available oseltamivir 75 mg capsule TAKE 1 CAPSULE BY MOUTH TWICE DAILY FOR 5 DAYS 09/02 completed Not Available Not Available Not Available dextroamphe tamine-amph etamine 20 mg tablet TAKE 1 TABLET BY MOUTH EVERY DAY BEFORE BREAKFAST AND 1/2 TABLET AROUND 1 PM active Not Available Not Available No t Available hydroxyzine HCl 25 mg tablet TAKE 1 TABLET BY MOUTH EVERY 6 HOURS NEEDED FOR ANXIETY 09/02 completed Not Available Not Available Not Available topiramate 200 mg tablet 09/02 completed Not Available Not Available Not Available ibuprofen 600 mg tablet 09/02 completed Not Available Not Available Not Available levofloxaci n 500 mg tablet 09/02 completed Not Available Not Available Not Available levofloxaci n 750 mg tablet 09/02 completed Not Available Not Available Not Available methylpredn isolone 4 mg tablets in a dose pack FOLLOW PACKAGE DIRECTION S 02/01 completed Not Available Not Available Not Available albuterol sulfate HFA 90 mcg/actuati on aerosol inhaler INHALE 2 PUFFS BY MOUTH FOUR TIMES DAILY NEEDED FOR SHORTNESS OF BREATH OR WHEEZING 02/01 completed Not Available Not Available Not Available propranolol 20 mg tablet TAKE 1 TABLET BY MOUTH FOUR TIMES DAILY active Not Available Not Available No t Available ondansetron 4 mg disintegrat ing tablet DISSOLVE 1 TABLET ON THE TONGUE EVERY 8 HOURS NEEDED FOR NAUSEA OR VOMITING 02/01 completed Not Available Not Available Not Available fluticasone propionate 50 mcg/actuati on nasal spray,suspe nsion 09/02 completed Not Available Not Available Not Available metformin ER 500 mg tablet,exte nded release 24 hr TAKE 1 TABLET BY MOUTH TWICE DAILY active Not Available Not Available No t Available ParaGard T 380A 380 square mm intrauterin e device Take 1 device by intrauter ine route. 09/02 completed Not Available Not Available Not Available dextroamphe tamine-amph etamine 5 mg tablet TAKE 1 TABLET BY MOUTH TWICE DAILY 02/01 completed Not Available Not Available Not Available amoxicillin 875 mg-potassiu m clavulanate 125 mg tablet TAKE 1 TABLET BY MOUTH TWICE DAILY FOR 10 DAYS 09/02 completed Not Available Not Available Not Available neomycin-po lymyxin-hyd rocort 3.5 mg-10,000 unit/mL-1 % ear drops,susp 09/02 completed Not Available Not Available Not Available escitalopra m 20 mg tablet TAKE 1 TABLET BY MOUTH EVERY DAY active Not Available Not Available No t Available Lexapro 10 mg tablet Take 1 tablet every day by oral route. 09/02 completed Not Available Not Available Not Available Sprintec (28) 0.25 mg-0.035 mg tablet Take 1 tablet every day by oral route as directed for 28 days. 02/01 completed Not Available Not Available Not Available topiramate 50 mg tablet 09/02 completed Not Available Not Available Not Available Topamax 09/02 completed Not Available Not Available Not Available Lo Loestrin Fe 1 mg-10 mcg (24)/10 mcg (2) tablet TAKE 1 TABLET BY MOUTH EVERY DAY 05/21 completed Not Available Not Available Not Available Allergy Relief (fexofenadi ne) 180 mg tablet TAKE 1 TABLET BY MOUTH DAILY 02/01 completed Not Available Not Available Not Available Qsymia 11.25 mg-69 mg capsule, extended release TAKE 1 CAPSULE BY MOUTH DAILY 09/02 completed Not Available Not Available Not Available Qsymia 3.75 mg-23 mg capsule, extended release TAKE 1 CAPSULE BY MOUTH DAILY FOR 14 DAYS 09/02 completed Not Available Not Available Not Available Qsymia 7.5 mg-46 mg capsule, extended release TAKE 1 CAPSULE BY MOUTH DAILY 09/02 completed Not Available Not Available Not Available Blisovi Fe 08/02 (28) 1 mg-20 mcg (21)/75 mg (7) tablet TAKE 1 TABLET BY MOUTH EVERY DAY active Not Available Not Available No t Available Vitals Date Recorded Body height Body mass index (BMI) Body weight Respiratory rate Body temperature Oxygen saturation Oxygen saturation in Arterial blood by Pulse oximetry Heart rate Systolic And Diastolic Provider Name and Address Organization Details Last Updated DateTime 157.48 cm 47.4 kg/m2 720732. 17 g 16 /min 98.6 [degF] 97 % 97 % 58 /min 123/76 mm[Hg] Alayna Raymond MA [facility] 4 10:55:17 Date Recorded Body height Body weight Body mass index (BMI) Systolic And Diastolic Provider Name and Address Organization Details Last Updated DateTime 10/17/2016 157.48 cm 426705.05 g 46.6 kg/m2 110/68 mm[Hg] Marguerite Haley RN [facility] 10/17/2016 11:04:16 Date Recorded Body height Provider Name an d Address Organization Details Last Updated DateTime 10/24/2016 157.48 cm Veda Gordon MA [facility] 10/24/2016 10:14:53 Date Recorded Body weight Body mass index (BMI) Systolic And Diastolic Provider Name and Address Organization Details Last Updated DateTime 10/24/2016 153732.65 g 46.8 kg/m2 126/70 mm[Hg] aMrguerite Haley RN [facility] 10/24/2016 10:28:23 Date Recorded Body height Body mass index (BMI) Body weight Heart rate Respiratory rate Body temperature Systolic And Diastolic Provider Name and Address Organization Details Last Updated DateTime 4 157.48 cm 45.3 kg/m2 454080. 47 g 80 /min 18 /min 98.3 [degF] 116/79 mm[Hg] Shy Alexander MA [facility] 4 12:17:19 Date Recorded Body height Body mass index (BMI) Body weight Systolic And Diastolic Provider Name and Address Organization Details Last Updated DateTime 02/05/2017 157.48 cm 48.1 kg/m2 078023.94 g 128/80 mm[Hg] Marguerite Haley RN [facility] 02/05/2017 11:50:35 Social History Question Answer Notes LastModified by Organizat ion Details LastModified Time Tobacco Smoking Status Former Smoker Juan Belcher MA null, [facility] 06/29/2015 15:25:51 Do You Have An Advance Directive? Yes Information n ot available 09/02/2023 What Is Your Level Of Caffeine Consumption? Moderate Information not available 06/29/2015 In The 14 Days Before Symptom Onset, Have You Had Close Contact With A Laboratory-confirm ed COVID-19 While That Case Was Ill? No Information n ot available 09/02/2023 In The 14 Days Before Symptom Onset, Have You Had Close Contact With A Person Who Is Under Investigation For COVID-19 While That Person Was Ill? No Information not available 09/02/2023 Have You Been To An Area Known To Be High Risk For COVID-19? No Information not available 09/02/2023 What Type Of Diet Are You Following? REGULAR [id number] Information n ot available 06/29/2015 What Was The Date Of Your Most Recent Tobacco Screening? 02/02/2024 Information not available 02/02/2024 What Is Your Relationship Status? Single Information not available 09/02/2023 Are You Sexually Active? Yes Information not available 09/02/2023 Do You Have Smoke And Carbon Monoxide Detectors In Your Home? Yes Information not available 09/02/2023 Are You Passively Exposed To Smoke? No Information no t available 09/02/2023 General Stress Level Low [id number] Information not available 06/29/2015 Has Tobacco Cessation Counseling Been Provided? Yes Information not available 09/02/2023 On What Date Was Tobacco Cessation Counseling Provided? 02/02/2024 Information not available 02/02/2024 Sex: Female Functional Status Question Answer Note LastModified by Organizat ion Details LastModified Time Do you use any illicit or recreational drugs? No Information not available 09/02/2023 Do you or have you ever used any other forms of tobacco or nicotine? Yes Information not available 09/02/2023 What is your level of alcohol consumption? Occasional [email or web address] Information not available 06/29/2015 Are you currently employed? No Information not available 09/02/2023 Do you or have you ever used e-cigarettes or vape? Current user of electronic cigarettes occasional Information not available 09/02/2023 What is your exercise level? None [email or web address] Information not available 06/29/2015 Mental Status None recorded. Family History Relationship Description Onset Age of this Age Resolved Age Notes LastModified by Organization Details LastModified Time Unspecified Relation Harmful pattern of use of alcohol [email or web address] Not available 2014 15:25:51 Unspecified Relation Depressive disorder [email or web address] Not available 2014 15:25:51 Unspecified Relation Heart disease [email or web address] Not available 2014 15:25:51 Unspecified Relation Hypercholest erolemia [email or web address] Not available 2014 15:25:51 Unspecified Relation Hypertensive disorder [email or web address] Not available 2014 15:25:51 Maternal Grandmother Osteoporosis [email or web address] Not available 06/29/2015 15:25:51 Maternal Grandfather Carcinoma in situ of prostate [email or web address] Not available 2014 15:25:51 Unspecified Relation Aneurysm [email or web address] Not available 2014 15:25:51 Medical History Condition Response Coronary Artery Disease N Other N High Blood Pressure N Atrial Fibrillation N Kidney or Bladder Problems N Thyroid Problems N GI Problems N Depression Y COPD N Blood Clots N Skin Problems N Anemia N Heart Attack (AR) N Anxiety Disorder Y Diabetes N Muscle, Joint, or Bone Problems N Seizures/Epilepsy Y Acid Reflux (GERD) N Cancer N Stroke N Asthma N Allergies Y High Cholesterol N Hepatitis N Liver Disease N Headaches Y Osteoporosis N Heart Failure N Gynecological History Statement/Question Response Current Control Method None Date of LMP 01/15/2024 Desired Control Method IUD On BCP's at Conception? N Obstetrics History GPAL:G 1 P 1 0 0 1 Type Value Full Term 1 Living 1 Total 1 Immunizations Vaccine Type Date Status Note Provider Nam e and Address Organization Details Recorded Time Tdap 5 completed Juan Belcher MA [facility] 06/29/2015 15:25:51 Influenza, split virus, quadrivalent, preservative 5 completed Not Available [employer] 07/31/2019 02:41:30 Past Encounters Encounter ID Performer Location Encounter Start Date Encounter Closed Date Diagnosis/Indication Diagnosis SNOMED-CT Code Diagnosis ICD10 Code Diagnosis IMO Codes Diagnosis Note [id number] Gwendolyn Palencia MARKETING AUTOMATION SPECIALIST- Nettie MILLER (Adult Med) [address] [place] [address] 06/29/2015 14:48:25 06/30/2015 14:33:32 Adult health examination 533939252 Z00.01 Encouraged well balanced meals, active lifestyle and routine vision/den brodie/death claim examiner apts. Administra tion of influenza vaccine 68687178 Z23 flu shot today Morbid obesity 171598165 E66.01 Get labs. Diet and exercise. Patient encouraged to change diet to reduce caloric intake. Mixed anxi ety and depressive disorder 172429353 F34.1 Continue lexapro 10 mg daily. Coping techniques to continue. Epilepsy 12862772 G40.90 9 Continue seeing neurologis t. Topiramate to continue per neuro. No seizures in >5 years. [id number] MD Manuel Gaytan ([place] [address]) [address] [place] [address] 08/10/2015 10:52:12 08/11/2015 09:20:38 Gynecologic examination 93885945 Z01.419 Contraception care 81442 5005 Z30.40 [id number] MD Manuel Gaytan ([place] [address]) [address] [facility] [place] [address] 10/17/2016 10:45:21 10/17/2016 18:03:36 Vaginal discharge 205887604 N89.8 Gynecologi c examination 49389112 Z01.419 Morbid obesity 854825234 E66.01 [id number] MD Manuel Gaytan ([place] [address]) [address] [facility] [place] [address] 10/24/2016 10:09:43 10/24/2016 13:34:45 Insertion of intrauterine contraceptive device 28380063 Z30.430 IUD check 412557129 Z30. 431 Contraception care 03740 5005 Z30.40 [id number] MD Manuel Gaytan ([place] [address]) [address] [facility] [place] [address] 02/05/2017 11:40:05 02/05/2017 14:08:00 Venereal disease screening 106834234 Z11.3 Pain in pelvis 98721944 R10.2 [id number] MD Levy Foxn [address] [place] [address] 09/02/2023 10:04:49 09/16/2023 09:26:10 Gynecologic examination 38572554 Z01.419 Routine gynecologi c exam. - Pap smear performed for routine screening- Nuswab for abnormal discharge- Mood changes as below- Contracept elena care as below- Urine test as below Screening for malignant neoplasm of cervix 277710845 Z12.4 Pap smear and HPV with reflex performed today. Skin irritation 91495721 7 L30.9 Intermitte nt irritation under breasts, improved with miconazole . Also with irritation around groin after shaving. No acute findings. - Promote dryness to skin- Continue OTC miconazole as needed- Plan to try waxing instead of shaving Bradycardia 91625435 R00 .1 Heart rate 58. Vital signs otherwise stable. Unusual given phentermin e usage. May be thyroid dysfunctio n. - TSH Obesity 416594624 E66.9 Patient reports phentermin e previously prescribed for weight loss, requests refill. Also requests further weight loss counsellin g. Will refill short course of phentermin e and follow-up for further weight loss counsellin g and medication management . Dysuria 74647907 R30.0 Difficulty maintainin g stream of urine. No pain or burning with urination, no hematuria, no abnormal odor. - urine dipstick Venereal d isease screening 322223762 Z11.3 Venereal disease screening as per USPFTF guidelines . Verbal consent aquired. Vaginal discharge 779439 006 N89.8 Abnormal vaginal discharge and odor. Will rule out BV, trichomona s, yeast. - Nuswab Contraception care 95761 5005 Z30.40 Pt desires contracept ion for both management of mood symptoms and prevention . Counselled on options including combined OCP, patch, ring, implant, injection, and IUD. Advised that combined OCP is typically most effective for management of mood symptoms. Also advised on increased risk of cardiovasc ular event and blood clots in people over 35 who smoke. Given she is 32 and vapes nicotene occasional ly, risk is reasonable . Through shared decision making elected to trial combined OCP. - Initiate sprintec combined OCP- Monitor progressio n of mood symptoms, consider increased estrogen formulatio n if refractory Insomnia 169602476 G47.0 0 Sleep onset and maintenanc e. Poor sleep hygeine, has TV on all night. - Counselled on sleep hygeine and efficiency Mood disorder 87084013 F 37 Mixed anxiety and depression , worse in 2 weeks leading up to period. Suspect PMDD. No SI or HI. Significan t impact on work and personal life. Already establishe d with counsellor . - Combined OCP as above- Continue escitalopr am 20 mg daily- Continue outside counsellor Fatigue 19534570 R53.83 DDX anemia, thyroid dysfunctio n, depression , PMDD, CARINA. - TSH as above- Check CBC to assess for anemia- Management of mood symptoms and insomnia as below Polycystic ovary syndrome 417380627 E28.2 Pt reports history of PCOS, on metformin. Will refill and discuss further medication management at follow-up. [id number] MD Manuel ROTH 14 [address] [facility] [address] [place] [address] 02/02/2024 12:02:58 02/05/2024 15:15:21 Breast lump 43259030 N63.0 right lateral breast lump. No systemic symptoms. History of mass with excision. Differenti als include possible fibrocysti c changes versus possible malignancy . Less likely infectious .Patient between ages of 30-39.Will start with mammogram. Return precaution s given.dago rds from last breast biopsy requested. Body mass index 40+ - severely obese 710331746 Z68.42 BMI 45.Follow up with PCPRecomme nd continued lifestyle modificati ons & exercise >150mins/w k Health Concerns Section Related Observation LastModified by Organization Detai ls LastModified Time None Recorded Concern Status LastModified by Organization Details LastModified Time None Recorded Advance Directives Directive Y: Payers Insurance Date Sequence Insurance Name Policy Number Policy Dolan Covered Member ID Dolan Member ID Guarantor Name 01/23/2024 2 [facility] [place] Doist [facility] PRIOR TO 2025 (MEDICAID REPLACEMENT - HMO) Marleny Story [id number] Marleny Story 09/01/2023 1 [facility] (MEDICAID HMO) Marleny Story [id number] Marleny Story 09/01/2023 1 [facility] Marleny Story [id number] Marleny Story 02/02/2024 1 MEDICAID-[place]: [place] [employer] PUBLIC AID Marleny Story [id number] Marleny Story 09/01/2023 1 [facility] Parametric [facility] PRIOR TO 2025 (MEDICAID REPLACEMENT - HMO) [id number] Marleny Story [id number] Marleny Story 09/01/2023 1 [facility] D[facility]IGIBLE (MEDICARE REPLACEMENT/AD VANTAGE - HMO) [id number] Marleny Story [id number] Marleny Story Notes Date Note Type Note Provider Name and Address Organization Details Recorded Time 10/18/19 17 text/htm l Annual GYNReported by PatientGenitourinary symptomsFor menstrual cycle, patient reportsnormal menses. For urinary symptoms, patient reportsno hematuriaandno incontinence. For vulva, patient reportsno genital lesion. For vagina, patient reportsnormal vaginal discharge.Breast symptomsFor breast, patient reportsno breast pain,no breast lump, andno nipple discharge.ContraceptionFor current contraception, patient reportsoral contraceptives.Endocrine symptomsFor sexual complaints, patient reportsno sexual complaints,no pain during intercourse, andnormal libido. For menopausal symptoms, patient reportsno menopausal symptomsandnormal vaginal lubrication.Psychological symptomsFor psychological symptoms, patient reportsno depression,no anxiety, andno pmdd.Preventative measuresFor preventive measures, patient reportsencourage self breast examination,encourage regular exercise,encourage no tobacco use, andfollowed with q3 year pap smear and high risk hpv typing.Patient states that the OCP is making her depressed and she would like to try a non hormonal method of contraception. Ritu Carbajal MD Attn: Accounting,[address] [place], [address], [facility] 10/17/2016 18:03:30 10/25/19 17 text/htm l Risks of paragard insertion was reviewed with the patient. Patient was informed of risks including but not limited to injury to the cervix, vagina, uterine perforation. Patient verbalized understanding and agreed to plan. Informed consent was obtained. Side-effect profile of paragard IUD was reviewed with the patient. Patient was informed of the possibility of irregular menstrual bleeding and abdominal cramps. Ritu Carbajal MD Attn: Accounting,[address] [place], [address], [facility] 10/24/2016 13:34:38 02/06/20 17 text/htm l Pelvic PainReported by PatientHPIFor associated symptoms, patient reportsabdominal pain,back pain,constipation, andfeelings of urgencybut reportsno chills,no diarrhea,no vaginal discharge,no pain with urination,normal emptying of bladder,no blood in the urine,normal libido,no fever,no nausea,no vomiting,no nocturia,no sexual abuse,no ectopic pregnancies,no endometriosis,no urinary frequency,no vaginal itching or irritation, andno dyspareunia. For location, patient reportsleft. For onset/timing, patient reports1-7 days (1 day). For duration, patient reportspersistent. For quality, patient reportssharpanddull. For severity, patient reportspain level 10/10. For context, patient reportswearing iud. For alleviating factors, patient reportsnone. For aggravating factors, patient reportsnone. Ritu Carbajal MD Attn: Accounting,[address] [place], [address], [facility] 02/05/2017 14:07:43 09/02/19 24 text/htm l Annual GYNReported by PatientGenitourinary symptomsFor menstrual cycle, patient reportssevere dysmenorrhea(severe mood disturbance leading up to period). For vagina, patient reportsfoul-smelling. For urinary symptoms, patient reportsno hematuriaandno incontinence(difficulty maintaining stream). For vulva, patient reportsno genital lesion.Breast symptomsFor breast, patient reportsbreast pain (when on period)but reportsno breast lumpandno nipple discharge.ContraceptionFor current contraception, patient reportscondomsandrequests testing for sexually transmitted infections(requests starting control).Endocrine symptomsFor sexual complaints, patient reportsno sexual complaintsandno pain during intercourse. For menopausal symptoms, patient reportsno menopausal symptomsandnormal vaginal lubrication.Psychological symptomsFor psychological symptoms, patient reportsdepression,anxiety, andpmdd prior to menstruation (3-10 days).Preventative measuresFor preventive measures, patient reportsencourage self breast examination,encourage regular exercise, andencourage no tobacco use. Marleny is a pleasant 32-year-old with a history of epilepsy, anxiety, depression, and obesity who presents today for a routine LEAK INSPECTOR exam. Reports painful, heavy period on 08/04/23, passing large clots, suspects miscarriage. Had not been sexually active for 3 years then had unprotected sex in early July. Home test one week later was negative. Also reports increased crying and lashing out for few weeks after, now somewhat better. Several month history of feeling very emotional from 2 weeks before her period starts through her period. Having significant impact on work and personal life. Flow is also heavy, she reports being used to it. Has been increasing exercise and improving diet with some improvement in bleeding. Cycle 29-39 days, currently day 32. Having symptoms past 4 years, had paragard in past which made it worse. Last pap smear several years ago, details unknown but thinks it was negative. One 9 years ago, had . Reports she had a breast lump biopsied 1 years ago it was normal. Also reports soreness in her armpits while on period, improved when not on period. Recently moved [facility] after living in [place] for several years. Lost job, has been working hard to find a new one with little success. Step dad is also reportedly in hospice. Increased stress from these things. Already in counselling. Also reports malodorous vaginal discharge, irritation in groin after shaving, and irritation in skin folds under breasts. Slightly better with miconazole. Feels self-conscious about this when intimate. Also reports difficulty maintaining stream of urine over past month. No pain, burning, strong smell, or hematuria. Reports always increased fatigue, onset and maintenance insomnia, feeling hot, and chronic backaches. No numbness or tingling or saddle symptoms. Seizures controlled on current medication, last one was petit mal seizure 2 years ago. 2 male partners recently, 1 in July and new boyfriend since then. Feels safe in relationship. Uses condoms. Interested in starting control for both prevention and management of mood symptoms. Eats marijuana edibles once in a while, vapes nicotene a few times per week. Drinks alcohol socially. Lives alone with dog, feels generally safe. Angela Corona MD Attn: Accounting,[address] [place], [address], [facility] 09/15/2023 12:45:51 02/02/20 24 text/htm l 33 F prior breast mass w/ negative Bx & BMI 45 Who presents for breast lump evaluation. Three weeks ago noted a right-sided breast lump. Denies any pain. Located and lateral superior position. Denies any fever or chills. Normal appetite. Denies any unintentional weight loss. Denies any lymphadenopathy. Denies any menstruation changes. Patient states she additionally is worried she palpated some Another possible lump. Endorses she recently started a new control medication. LMP January 14. HIRA DELATORRE MD Attn: Accounting,[address] [facility], [place], [address], [place] [facility] 02/05/2024 11:41:54 OBGyn Episode Ob Episode Information Episode Created Date Number of Fetuses Patient Bloodtype Patient rh Status Prepregnancy Weight lbs Domestic Partner Domestic Partner Phone Father Name Hr Representative Status 09/02/19 24 1 CLOSED Fetus Data First Name Last Name Admitted to NICU Weight (g) Sex Living Outcome Pediatric Complications Fetus ID Race Codes Race Delivery Type [id number] Jaxon Calculation Initial Jaxon Date Initial Exam Date Initial Exam Provider Initial Ultrasound Date Last Menstrual Period Date Ultra Sound Weeks Gestation 0 Eighteen To Twenty Week Jaxon Update Ultra Sound Date Fundal Height At Umbil Quickening Date Ultra Sound Latest Weeks Gestation Final Jaxon Confirmed By Final Jaxon Confirmed Date Final Jaxon Date Ultra Sound Latest Days Gestation 0 0 Menstrual History Last Menstrual Date Menses Monthly On Bcp Conception Prior Menses Frequency Hcg Plus Date Menarche Onset Age Delivery Information Delivery Date Delivery Type Labor Anesthesia Weeks Gestation Incision Type Labor Labor Length Hrs Delivered By Post Complications Tubal Sterilization Discharge Date Comments 5 Discharge Information Feeding Method Contraceptive Method Maternal HG B and HCT Levels
--- OUTSIDE RECORDS SUMMARY | 2025-05-22 11:25 | XMS_ITS | Clinical Summary ---
Author Organization [facility] Address [address] [place] [address] Phone Care Team Providers Care Wildlife Control Agent Name Role Phone Marguerite Ponce APRN, FUEL EFFICIENT AIRCRAFT DESIGNER Unavailable [phone] Allergies Active Allergy Reactions Criticality Noted Date [...] drink = 0.6 oz pur e alcohol) [facility] Utilities Answer Date Recorded In the past 12 months has [employer], gas, oil, or water [employer] threatened to shut off services in your [...] How often do you attend chur or restorationism services? More than 4 times per year 07/16/2023 Do you belong to any clubs o r organizations such as synagogue groups, unions, fraternal or athletic groups, or [...] medical care, and heating? Somewhat hard 07/16/2023 [facility] of Occupat ional Health - Occupational Stress [...] Sex Assigned at Female 07/04/2023 10:09 AM WOOD BARKER Legal Sex Female 1:54 PM WOOD BARKER Gender Identity Female 07/04/2023 10:09 AM WOOD BARKER Sexual Orientation Straight 07/04/2023 10 :09 AM WOOD BARKER Last Filed Vital Signs Vital Sign Reading [...] Improving( 11:03 AM CDT) No Cynthia Wiggins, AIR PRESS OPERATOR Note: Goal/Objective: Decrease anxiety and depression through processing difficulties. Anticipated Time Frame for Goal Completion: 6 months Goal Reviewed with: patient Readiness to change: Ready to change Department associated with goal: [facility] Steps to [...] W/ ESTIMATED GLUCOSE Routine 07/28/2023 8:00 AM WOOD BARKER Well adult exam from Last 3 Months or Most Recently Relevant to Health Maintenance Results * HEMOGLOBIN A1C W/ ESTIMATED GLUCOSE (07/28/2023 8:00 AM WOOD BARKER) HGB-A1C 5.0 4.0 - 6.0 % 07/28/2023 3:29 PM WOOD BARKER [facility] Est Average Glucose 96.8 mg/dL 07/28/2023 3:29 PM WOOD BARKER [facility] Blood Venipuncture / Unknown 07/28/2023 8:00 AM WOOD BARKER 07/28/2023 8:00 AM WOOD BARKER Narrative [facility] - 07/28/2023 3:29 PM WOOD BARKER HEMOGLOBIN A1C: DIABETIC PATIENTS: WELL-CONTROLLED: 6.2 - 7.0 INTERMEDIATE WELL-CONTROLLED: 7.0 - 9.0 POORLY-CONTROLLED: >9.0 Sherie Wright PAC CHEMISTRY ORDERAB LES Final Result [facility] [address] [place] [address] from Last 3 Months or Most Recently Relevant to Health Maintenance Insurance [place]ICAID [place] Care Teams Wildlife Control Agent Relationship Specialty Start Date End Date Marguerite Ponce, FOWL BLOOD TESTER, FUEL EFFICIENT AIRCRAFT DESIGNER [address] [place] [address] Nurse Practitioner Advanced Practice Nurse 07/28/23
--- OUTSIDE RECORDS SUMMARY | 2025-05-22 11:25 | XMS_ITS | Encounter Summary ---
Author Organization [facility] Address [address] [place] [address] Phone Care Team Providers Care Simplex Printer Installer Name Role Phone Marguerite Ponce APRN, MEDICAL ADMINISTRATIVE TECHNICIAN Unavailable [phone]- [phone] Reason for Visit * Reason Comments Medication Refill Encounter Details Date Type Department Care Team (Late st Contact Info) Description 04/17/2024 Refill [facility] [address] [place] [id number] Sherie Wright, [facility] [address] [place] [address] Medication Refill Social History Tobacco Use Types Packs/Day Years Used Date Smoking Tobacco: Former Cigarettes Smokeless Tobacco: Never Alcohol Use Standard Drinks/Week Comments Yes 0 (1 standard drink = 0.6 oz pur e alcohol) [facility] Utilities Answer Date Recorded In the past 12 months has [employer], [employer], oil, or water Anita Margarita threatened to shut off services in your [...] often do you attend [facility] or voodoo services? More than 4 times per year 07/16/2023 Do you belong to any clubs o r organizations such as sikhism groups, unions, fraternal or athletic groups, or [...] medical care, and heating? Somewhat hard 07/16/2023 [facility] [place] of Occupat ional Health - Occupational Stress [...] place to sleep or slept in a usp (including now)? No 07/16/2023 Comments No Sex and Gender Information Value Date Recorded Sex Assigned at Female 07/04/2023 10:09 AM BRANCH SALES MANAGER Legal Sex Female 1:54 PM BRANCH SALES MANAGER Gender Identity Female 07/04/2023 10:09 AM BRANCH SALES MANAGER Sexual Orientation Straight 07/04/2023 10 :09 AM BRANCH SALES MANAGER documented as of this encounter Miscellaneous Notes [...] change Department associated with goal: [facility] Steps to achieve goal: [...] on filedocumented in this encounter Care Teams Simplex Printer Installer Relationship Specialty Start Date End Date Marguerite Ponce APRN, MEDICAL ADMINISTRATIVE TECHNICIAN [address] [place] [address] Nurse Practitioner Advanced Practice Nurse 07/28/23 documented as of this encounter
--- OUTSIDE RECORDS SUMMARY | 2025-05-22 11:25 | XMS_ITS | Encounter Summary ---
Author Organization [facility] Address [address] [place] [address] Phone Care Team Providers Care Business Development Coordinator Name Role Phone Sherie Wright Primary Care Pro vider Marguerite Ponce ONLINE CONTENT COORDINATOR, PLANNING OFFICIAL Unavailable +- [phone] Reason for Visit * Reason Comments Medication Refill Encounter Details Date Type Department Care Team (Late st Contact Info) Description 12/18/2023 [facility]ill [facility] [address] [place] [address] Sherie Wright, [facility] [address] [place] [address] Medication Refill Social History Tobacco Use Types Packs/Day Years Used Date Smoking Tobacco: Former Cigarettes Smokeless Tobacco: Never Alcohol Use Standard Drinks/Week Comments Yes 0 (1 standard drink = 0.6 oz pur e alcohol) [facility] Utilities Answer Date Recorded In the past 12 months has [employer], gas, oil, or water [employer] threatened to shut off services in your [...] often do you attend [facility] or nondenominational services? More than 4 times per year [...] medical care, and heating? Somewhat hard 07/16/2023 [facility] - Occupational Stress Questionnaire Answer Date [...] place to sleep or slept in a mcc (including now)? No 07/16/2023 Comments No Sex and Gender Information Value Date Recorded Sex Assigned at Female 07/04/2023 10:09 AM SUPERVISOR OF RESEARCH Legal Sex Female 1:54 PM SUPERVISOR OF RESEARCH Gender Identity Female 07/04/2023 10:09 AM SUPERVISOR OF RESEARCH Sexual Orientation Straight 07/04/2023 10 :09 AM SUPERVISOR OF RESEARCH documented as of this encounter Miscellaneous Notes * Telephone Encounter - Peggy Weeks RN - 12/18/2023 1:34 PM CDT Medication(s) refilled and signed per [facility] Chronic Medication Refill Standing Order for Pediatricand [...] Office Visit Sherie Wright PAC [facility] [place] 10/23/23 Office Visit Sherie Wright PAC [facility] 09/29/23 Office Visit Sherie Wright PAC [facility] [place] 07/21/23 Telemedicine Sherie Wright PAC [facility] [place] 07/18/23 Office Visit Sherie Wright PAC [facility] [place] 07/04/23 Office Visit Sherie Wright PAC [facility] [place] Showing recent visits within past 365 days and meeting all other requirements Future Appointments Date Type Provider Dept 01/16/24 Appointment Sherie Wright PAC [facility] [place] Showing future appointments within next 90 days and meeting all other requirements Passed - No active on record documented in this encounter Plan of Treatment Not on file documented as of this encounter Goals Goal Patient Goal Type Associated Problems Recent Progress Patient-Stated? Author process stressors Behavioral Health Improving( 11:03 AM CDT) No Cynthia Wiggins, HOUSE PRINCIPAL Note: Goal/Objective: Decrease anxiety and depression through processing difficulties. Anticipated Time Frame for Goal Completion: 6 months Goal Reviewed with: patient Readiness to change: Ready to change Department associated with goal: [facility] Steps to [...] on filedocumented in this encounter Care Teams Business Development Coordinator Relationship Specialty Start Date End Date Sherie Wright PAC PCP - General Physician Workforce Management Manager 07/04/23 04/14/24 Marguerite Ponce APRN, PLANNING OFFICIAL [address] [place] [address] Nurse Practitioner Advanced Practice Nurse 07/28/23 documented as of this encounter
--- OUTSIDE RECORDS SUMMARY | 2025-05-22 11:25 | XMS_ITS | Clinical Summary ---
Author Organization [facility] Address [address] [place] [address] Care Team Providers Care Hand Rug Cleaner Name Role Phone Unavailable Primary Care Provider [...] Cancer Screening with HPV 2018 COVID-19 Vaccine (2024-2 6 season) 2025 Influenza Adult (#1) 2025 Hepatitis A Vaccines Aged Out No long er eligible based on patient's age to complete this topic Meningococcal B Vaccine Aged Out No l [...]
--- OUTSIDE RECORDS SUMMARY | 2025-05-22 11:25 | XMS_ITS | Encounter Summary ---
Author Organization [facility] Address [address] [place] [address] Phone Care Team Providers Care Geneticist Name Role Phone Sherie Wright Primary Care Pro vider Marguerite Ponce HADOOP CONSULTANT, OLIVE PACKER Unavailable +- [phone] Reason for Visit * Reason Comments Medication Refill Encounter Details Date Type Department Care Team (Late st Contact Info) Description 07/23/2023 Refill [facility] [place] [address] [place] [address] Sherie Wright, [facility] [address] [place] [address] Medication Refill Social History Tobacco Use Types Packs/Day Years Used Date Smoking Tobacco: Former Cigarettes Smokeless Tobacco: Never Alcohol Use Standard Drinks/Week Comments Yes 0 (1 standard drink = 0.6 oz pur e alcohol) [facility] Utilities Answer Date Recorded In the past 12 months has [employer], gas, oil, or water [employer] threatened to shut off services in your home? No 07/16/2023 Social Connection and Isolation Panel Answer Date Recorded In a typical week, how many times do you talk on the phone with family, friends, or neighbors? More than three times a week 07/16/2023 How often do you get togethe r with friends or relatives? Once a week 07/16/2023 How often do you attend [facility] or anabaptism services? More than 4 times per year 07/16/2023 Do you belong to any clubs o r organizations such as pentecostalism groups, unions, fraternal or athletic groups, or [...] medical care, and heating? Somewhat hard 07/16/2023 [facility] Occupat ional [facility] - Occupational Stress Questionnaire Answer [...] Sex Assigned at Female 07/04/2023 10:09 AM CURBER Legal Sex Female 1:54 PM CURBER Gender Identity Female 07/04/2023 10:09 AM CURBER Sexual Orientation Straight 07/04/2023 10 :09 AM CURBER documented as of this encounter Plan of Treatment Not on file documented as of this encounter Visit Diagnoses Not on filedocumented in this encounter Additional Health Concerns Infection Onset Date Last Indicated Resolved Time COVID - 19 Confirmed 07/04/2023 07/04/2023 024 12:16 AM CURBER documented as of this encounter Care Teams Geneticist Relationship Specialty Start Date End Date Sherie Wright, PAC PCP - General Physician Retail Merchandising Manager 07/04/23 04/14/24 Marguerite Ponce, HADOOP CONSULTANT, OLIVE PACKER [address] [place] [address] Nurse Practitioner Advanced Practice Nurse 07/28/23 documented as of this encounter
--- OUTSIDE RECORDS SUMMARY | 2025-05-22 11:25 | XMS_ITS | Encounter Summary ---
Author Organization [facility] Address [address] [place] [address] Phone Care Team Providers Care Inspector Mechanical Name Role Phone Sherie Wright Primary Care Pro vider Marguerite Ponce SCARF GLUER, FLOATING LABOR GANG SUPERVISOR Unavailable +- [phone] Reason for Visit * Reason Comments Medication Refill Encounter Details Date Type Department Care Team (Late st Contact Info) Description 11/03/2023 Refill [facility] [address] [place] [address] Sherie Wright, [facility] [address] [place] [address] Medication Refill Social History Tobacco Use Types Packs/Day Years Used Date Smoking Tobacco: Former Cigarettes Smokeless Tobacco: Never Alcohol Use Standard Drinks/Week Comments Yes 0 (1 standard drink = 0.6 oz pur e alcohol) [facility] Utilities Answer Date Recorded In the past 12 months has [employer], gas, oil, or water [employer] threatened to shut off services in your home? No 07/16/2023 Social Connection and Isolation Panel Answer Date Recorded In a typical week, how many times do you talk on the phone with family, friends, or neighbors? More than three times a week 07/16/2023 How often do you get togethe r with friends or relatives? Once a week 07/16/2023 How often do you attend [facility] or amish services? More than 4 times per year 07/16/2023 Do you belong to any clubs o r organizations such as cheondoism groups, unions, fraternal or athletic groups, or [...] medical care, and heating? Somewhat hard 07/16/2023 [facility] of Occupat ional [facility] - Occupational Stress Questionnaire Answer Date Recorded [...] place to sleep or slept in a assisted (including now)? No 07/16/2023 Comments No Sex and Gender Information Value Date Recorded Sex Assigned at Female 07/04/2023 10:09 AM STORAGE BRINE WORKER Legal Sex Female 1:54 PM STORAGE BRINE WORKER Gender Identity Female 07/04/2023 10:09 AM STORAGE BRINE WORKER Sexual Orientation Straight 07/04/2023 10 :09 AM STORAGE BRINE WORKER documented as of this encounter Miscellaneous Notes [...] Office Visit Sherie Wright PAC [facility] [place] 10/23/23 Office Visit Sherie Wright PAC [facility] 09/29/23 Office Visit Sherie Wright PAC [facility] [place] 07/21/23 Telemedicine Sherie Wright PAC [facility] [place] 07/18/23 Office Visit Sherie Wright PAC [facility] [place] 07/04/23 Office Visit Sherie Wright PAC [facility] [place] Showing recent visits within past 365 days and meeting all other requirements Future Appointments Date Type Provider Dept 01/16/24 Appointment Sherie Wright PAC [facility] [place] Showing future appointments within next 90 days and meeting all other requirements documented in this encounter Plan of Treatment Not on file documented as of this encounter Goals Goal Patient Goal Type Associated Problems Recent Progress Patient-Stated? Author process stressors Behavioral Health Improving( 11:03 AM CDT) No yCnthia Wiggins LCSW Note: Goal/Objective: Decrease anxiety and depression through processing difficulties. Anticipated Time Frame for Goal Completion: 6 months Goal Reviewed with: patient Readiness to change: Ready to change Department associated with goal: [facility] Steps to achieve goal: [...] on filedocumented in this encounter Care Teams Inspector Mechanical Relationship Specialty Start Date End Date Sherie Wright, THOMAS PCP - General Physician Machine Welt Butter 07/04/23 04/14/24 Marguerite Ponce APRN, FLOATING LABOR GANG SUPERVISOR [address] [place] [address] Nurse Practitioner Advanced Practice Nurse 07/28/23 documented as of this encounter
--- OUTSIDE RECORDS SUMMARY | 2025-05-22 11:25 | XMS_ITS | Encounter Summary ---
Author Organization [facility] Address [address] [place] [address] Phone Care Team Providers Care Clinic Cma Name Role Phone Sherie Wright Primary Care Pro vider Marguerite Ponce CD REACTOR OPERATOR HEAD, AUDIT CLERK Unavailable +- [phone] Reason for Visit * Reason Comments Medication Refill Encounter Details Date Type Department Care Team (Late st Contact Info) Description 11/14/2023 Refill [facility] [address] [place] [address] Sherie Wright, [facility] [address] [place] [address] Medication Refill Social History Tobacco Use Types Packs/Day Years Used Date Smoking Tobacco: Former Cigarettes Smokeless Tobacco: Never Alcohol Use Standard Drinks/Week Comments Yes 0 (1 standard drink = 0.6 oz pur e alcohol) [facility] Utilities Answer Date Recorded In the past 12 months has [employer], gas, oil, or water [employer] threatened to shut off services in your [...] 07/16/2023 How often do you attend [facility] or evangelical services? More than 4 times per year 07/16/2023 Do you belong to any clubs o r organizations such as hindu groups, unions, fraternal or athletic groups, or [...] care, and heating? Somewhat hard 07/16/2023 [facility] of Occupat ional [facility] - Occupational Stress Questionnaire Answer Date [...] Sex Assigned at Female 07/04/2023 10:09 AM MACHINE OPERATIONS SUPERVISOR Legal Sex Female 1:54 PM MACHINE OPERATIONS SUPERVISOR Gender Identity Female 07/04/2023 10:09 AM MACHINE OPERATIONS SUPERVISOR Sexual Orientation Straight 07/04/2023 10 :09 AM MACHINE OPERATIONS SUPERVISOR documented as of this encounter Miscellaneous Notes * Telephone Encounter - Peggy Weeks RN - 11/14/2023 10:32 AM CDT Medication(s) refilled and signed per [facility] [...] Office Visit Sherie Wright PAC [facility] [place] 10/23/23 Office Visit Sherie Wright PAC [facility] 09/29/23 Office Visit Sherie Wright PAC [facility] [place] 07/21/23 Telemedicine Sherie Wright PAC [facility] [place] 07/18/23 Office Visit Sherie Wright PAC [facility] [place] 07/04/23 Office Visit Sherie Wright PAC [facility] [place] Showing recent visits within past 365 days and meeting all other requirements Future Appointments Date Type Provider Dept 01/16/24 Appointment Sherie Wright PAC [facility] [place] Showing future appointments within next 90 days and meeting all other requirements Passed - No active on record documented in this encounter Plan of Treatment Not on file documented as of this encounter Goals Goal Patient Goal Type Associated Problems Recent Progress Patient-Stated? Author process stressors Behavioral Health Improving( 11:03 AM CDT) No Cynthia Wiggins, DIRECTOR OF OPTIMIZATION Note: Goal/Objective: Decrease anxiety and depression through processing difficulties. Anticipated Time Frame for Goal Completion: 6 months Goal Reviewed with: patient Readiness to change: Ready to change Department associated with goal: [facility] Steps to achieve [...] on filedocumented in this encounter Care Teams Clinic Cma Relationship Specialty Start Date End Date Sherie Wright PAC PCP - General Physician [place] Programmer 07/04/23 04/14/24 Marguerite Ponce APRN, AUDIT CLERK [address] [place] [address] Nurse Practitioner Advanced Practice Nurse 07/28/23 documented as of this encounter
[2025-05-22 11:31] VITALS: BP 125/60; PULSE 71; RESP 16; TEMP 36.3; O2SAT 100
--- NOTE | 2025-05-22 11:36 | ED.URI ---
HPI - URI/Sore Throat General Chief Complaint: Upper Respiratory Infection Stated Complaint: Sore Throat/Body Aches/Headache Time Seen by Provider: 05/22/25 11:45 Source: patient Mode of arrival: ambulatory Limitations: no limitations History of Present Illness HPI Narrative: Marleny is a 34 year old female patient presenting to the clinic today with c/o sore throat, body aches, runny nose, headache, bilateral ear pain, and fatigue x 2 days. No fever or chills. Did have some diarrhea yesterday but better today. Rates pain 12/21. Has take tylenol/excederin. MD elicited complaint: sore throat and nasal congestion Related Data Home Medications ?Medication ?Instructions ?Recorded ?Confirmed ?Last Taken ?Type escitalopram oxalate 20 mg tablet 20 mg PO DAILY 03/04/23 06/13/24 Unknown History lamotrigine 200 mg tablet 200 mg PO BID 03/04/23 06/13/24 Unknown History dextroamphetamine-amphetamine 20 04/10/25 Unknown History mg tablet levetiracetam 250 mg tablet mg PO 04/10/25 Unknown History propranolol 40 mg tablet mg 04/10/25 Unknown History famotidine 20 mg tablet mg 05/22/25 Unknown History levonorgestrel 0.15 mg-ethinyl 05/22/25 Unknown History estradiol 30 mcg tablets,3 mos pack(91) Allergies Allergy/AdvReac Type Severity Reaction Status Date / Time codeine AdvReac Mild Nausea and Verified 05/22/25 11:38 Vomiting Review of Systems Review of Systems: Pertinent positives per HPI. Patient denies any fever, chills, rash, visual changes, dizziness, shortness of breath, chest pain, palpitations, nausea, vomiting, constipation, abdominal pain, or any urinary issues. [facility] Past Medical History Medical History Anxiety Hiatal hernia Juvenile myoclonic epilepsy Surgical History Surgical History History of cholecystectomy Previous section Family History Family History Mother Family history non-contributory Social History Social History Alcohol intake: current Alcohol use details: rare use Substance use type: does not use Gender identity (if verbalized by the patient): Female Comments At the time of my signature, I reviewed and agree with the nursing past medical, surgical, social, and family history. There is no relevant family history pertinent to the patient complaint. Exam Narrative: General: Well-developed, well nourished, in no apparent distress Head: Normocephalic, atraumatic Eyes: Pupils equally round and reactive to light bilaterally, EOM intact, sclera and conjunctive clear, no discharge, lids normal Ears: TMs intact and clear, ear canals clear, no drainage, grossly hearing normal. Nose: Nares patent, clear nasal discharge, no inflammation, no sinus tenderness. Mouth: Oral pharynx red without lesions or masses, good dentition, MMM. Neck: Supple, trachea midline, no enlargement of anterior or posterior cervical nodes, no thyroid masses or goiter palpable. Cardio: Regular rate and rhythm, s1 and s2 normal, no murmur appreciated. Resp: Clear to auscultation bilaterally, no rhonchi, rales, wheezing or rubs Course Course Emergency Course: Portions of this record may have been created with voice recognition software. Level of Care: Express Care Visit Vital Signs Vital signs: Vital Signs Temperature 36.3 C L 05/22/25 11:31 Pulse Rate 71 05/22/25 11:31 Respiratory Rate 16 05/22/25 11:31 Blood Pressure 125/60 05/22/25 11:31 Pulse Oximetry 100 05/22/25 11:31 Oxygen Delivery Room Air 05/22/25 11:31 Temperature 36.3 C L 05/22/25 11:31 Pulse Rate 71 05/22/25 11:31 Respiratory Rate 16 05/22/25 11:31 Blood Pressure 125/60 05/22/25 11:31 Pulse Oximetry 100 05/22/25 11:31 Oxygen Delivery Room Air 05/22/25 11:31 Vital signs reviewed MDM - URI/Sore Throat MDM Narrative Medical decision making narrative: At the time of visit patient is resting comfortably on the exam table. Patient appears to be nontoxic. C/o sore throat, body aches, runny nose, headache, bilateral ear pain, and fatigue x 2 days. No fever or chills. Did have some diarrhea yesterday but better today. Rates pain 6/10. Has take tylenol/excederin. on exam patient TMs intact and clear, clear nasal drainage, no cervical lymphadenopathy, oral pharynx mildly red, heart rates regular rate and rhythm, lung sounds are clear. COVID, influenza, and strep test were ordered. Labs: COVID, influenza, and strep test were performed. All testing was negative. We will send strep for culture. Plan: I suspect the patient has URI/pharyngitis. Work note was given. Supportive measures were discussed with the patient and they voiced understanding discharge instructions and agrees to treatment plan. Return precautions reviewed Differential Diagnosis Differential diagnosis: Likely upper respiratory infection, otitis media, sinusitis, viral infection, bronchitis, influenza, pharyngitis and other (COVID) Lab Data Labs: Lab Results 05/22/25 Range/Units 11:55 POC Influenza A Ag Negative (Negative) POC Influenza B Ag Negative (Negative) POC SARS CoV-2 Ag Negative (Negative) POC Grp A Strep Screen Negative (Negative) Discharge Plan Discharge Clinical Impression: Upper respiratory infection Qualifiers: URI type: unspecified URI Qualified Code(s): J06.9 - Acute upper respiratory infection, unspecified Pharyngitis Qualifiers: Pharyngitis/tonsillitis etiology: unspecified etiology Qualified Code(s): J02.9 - Acute pharyngitis, unspecified Patient Disposition: Home Condition: Stable Instructions: Antibiotic Form, Pharyngitis (ED), Cold Symptoms (ED) Additional Instructions: Tylenol 1 g p.o. given in the clinic today COVID, influenza, and strep test were negative in the clinic today. We will send strep for culture if this comes back positive we will contact you in place you on antibiotics at that time. Increase fluids and stay well hydrated May take Tylenol or motrin as directed on bottle for pain/fever May use Flonase 1 spray in each nare daily May take OTC antihistamines such as Zyrtec or Claritin daily as directed on bottle May apply Vicks vapor rub to chest to open sinuses Sinus rinses for congestion Cepacol spray, cough drops, throat lozenges, warm tea with honey/lemon, gargle salt water to soothe throat BRAT diet for diarrhea Clear liquids x 24 hours then advance as tolerated for nausea/vomiting Go to the ED if you develop a worsening in your condition- high fever not controlled by Tylenol or Motrin, dehydration, weakness, lethargy, shortness of breath, or chest pain. Follow up with your PCP in 3-5 days if symptoms persist. Patient Language: Kazakh Prescriptions: No Action lamotrigine 200 mg tablet 200 mg PO BID escitalopram oxalate 20 mg tablet 20 mg PO DAILY propranolol 40 mg tablet levetiracetam 250 mg tablet PO dextroamphetamine-amphetamine 20 mg tablet famotidine 20 mg tablet levonorgestrel-ethinyl estrad 0.15 mg-30 mcg (91) tablets,dose pack,3 month Follow-up/Referrals: Jayden Diallo MD [Primary Care Provider, Family Practice] Stand Alone Forms: Work/School Release IP Time of Disposition: 12:07 Quality NIHSS Nursing Documentation ED NIHSS nursing documentation: reviewed/agree
[2025-05-22 11:58] LABS: EDCOVIDSCREEN Negative (Negative); EDINFLUASCREEN Negative (Negative); EDINFLUBSCREEN Negative (Negative); EDSTREPNEGPOS1 Negative (Negative)
[2025-05-22] MEDS: ACETAMINOPHEN 500 MG TABLET 1000 MG PO (12:07)
== END 2025-05-22 12:26 | disposition home or self-care (01) ==
PROVIDERS: Emergency Provider Nurse Practitioner Family; PCP Emergency Medicine
DX: J06.9 Acute upper respiratory infection, unspecified (principal); J02.9 Acute pharyngitis, unspecified; Z20.822 Contact with and (suspected) exposure to COVID-19; F41.9 Anxiety disorder, unspecified; G40.B09 Juvenile myoclonic epilepsy, not intractable, without status epilepticus
CPT/HCPCS: 87081; 87426; 87804; 87880; 99213; A9270; G0463

== ENCOUNTER 2025-06-20 19:22 | Emergency (ER) | payer OTHER, SELFPAY ==
[2025-06-20 19:28] VITALS: BP 121/62; PULSE 66; RESP 20; TEMP 36.7; O2SAT 100
--- NOTE | 2025-06-20 20:09 | ED.EAR ---
HPI - Ear Problem General Chief complaint: Ear Stated complaint: Left Ear Pain Time Seen by Provider: 06/20/25 19:40 Source: patient and RN notes reviewed Mode of arrival: ambulatory Limitations: no limitations History of Present Illness HPI Narrative: 34-year-old female presents Express Care complaining of left ear pain for days. Patient denies any other upper respiratory symptoms, fevers, body aches, chills, cough, nausea, diarrhea, chest pain, difficulty breathing, any other symptoms. Patient tried [id number] ear drops without relief. Patient denies any significant past medical history other than seizures. Related Data Home Medications ?Medication ?Instructions ?Recorded ?Confirmed ?Last Taken ?Type escitalopram oxalate 20 mg tablet 20 mg PO DAILY 03/04/23 06/13/24 Unknown History lamotrigine 200 mg tablet 200 mg PO BID 03/04/23 06/13/24 Unknown History dextroamphetamine-amphetamine 20 04/10/25 Unknown History mg tablet levetiracetam 250 mg tablet mg PO 04/10/25 Unknown History propranolol 40 mg tablet mg 04/10/25 Unknown History famotidine 20 mg tablet mg 05/22/25 Unknown History levonorgestrel 0.15 mg-ethinyl 05/22/25 Unknown History estradiol 30 mcg tablets,3 mos pack(91) Allergies Allergy/AdvReac Type Severity Reaction Status Date / Time codeine AdvReac Mild Nausea and Verified 06/20/25 19:33 Vomiting Review of Systems Review of Systems: CONSTITUTIONAL: Denies fever, chills, or sweats. EYES: Denies visual changes, redness, or discharge. ENT: Denies rhinorrhea, congestion, sore throat. Positive for otalgia. CARDIOVASCULAR: Denies chest pain, palpitations, or edema. RESPIRATORY: Denies cough or dyspnea. GASTROINTESTINAL: Denies abdominal pain, nausea, vomiting, or diarrhea. GENITOURINARY: Denies dysuria or hematuria. SKIN: Denies rash or itching. MUSCULOSKELETAL: Denies back pain, joint pain, or myalgia. NEUROLOGIC: Denies headache, numbness, or weakness. PSYCHIATRIC: Denies anxiety or depression. All other systems reviewed are negative, except as documented in HPI. [facility] Past Medical History Medical History Anxiety Hiatal hernia Juvenile myoclonic epilepsy Surgical History Surgical History History of cholecystectomy Previous section Family History Family History Mother Family history non-contributory Social History Social History Smoking status: Never smoker Alcohol intake: current Alcohol use details: rare use Substance use type: does not use Gender identity (if verbalized by the patient): Female Comments At the time of my signature, I reviewed and agree with the nursing past medical, surgical, social, and family history. There is no relevant family history pertinent to the patient complaint. Exam Narrative: GENERAL: This is a well-nourished, well-developed adult, in no apparent distress. They are non ill-appearing, nontoxic appearing. HEAD: normocephalic, atraumatic. EYES: Sclera clear/white. Conjunctiva normal. Vision is grossly intact. Extraocular movements intact EARS: External ears normal, right auditory canals clear and without drainage, left tragal tenderness, left auditory canal erythematous with exudate. TMs normal without perforation. Hearing grossly intact. NOSE: External nose normal with no obvious nasal discharge, nasal turbinates without redness, no rhinorrhea. THROAT: Mucous membranes moist, posterior pharynx clear, without erythema or swelling. Uvula midline. NECK: Neck supple, non-tender without lymphadenopathy, masses or thyromegaly. CARDIOVASCULAR: Regular rate and rhythm without murmurs, gallops, or rubs. RESPIRATORY: Clear to auscultation. Breath sounds equal bilaterally. No wheezes, rales, or rhonchi. SKIN: warm, Dry, intact with no suspicious lesions or rash, good texture and turgor. NEURO: awake, alert, and oriented to person, place and time. There were no obvious focal neurologic abnormalities. EXTREMITIES: No joint tenderness, effusion, or edema noted. BACK: Nontender without deformity. Course Course Level of Care: Express Care Visit Vital Signs Vital signs: Vital Signs Temperature 98.0 F 06/20/25 19:28 Pulse Rate 66 06/20/25 19:28 Respiratory Rate 20 06/20/25 19:28 Blood Pressure 121/62 06/20/25 19:28 Pulse Oximetry 100 06/20/25 19:28 Oxygen Delivery Room Air 06/20/25 19:28 Temperature 98.0 F 06/20/25 19:28 Pulse Rate 66 06/20/25 19:28 Respiratory Rate 20 06/20/25 19:28 Blood Pressure 121/62 06/20/25 19:28 Pulse Oximetry 100 06/20/25 19:28 Oxygen Delivery Room Air 06/20/25 19:28 [facility] MDM Narrative Medical decision making narrative: Patient has left-sided otitis externa. Will treat with ofloxacin ear drops. Discussed physical exam findings. Advised supportive measures and signs/symptoms to go to the ER. Pt is appropriate for outpt treatment and f/u. Differential Diagnosis Differential Diagnosis: Otitis media, otitis externa, upper respiratory infection Critical Care Time Critical Care Time Critical Care Time: No Discharge Plan Discharge Clinical Impression: Otitis externa Qualifiers: Otitis externa type: diffuse Chronicity: acute Laterality: left Qualified Code(s): H60.312 - Diffuse otitis externa, left ear Patient Disposition: Home Condition: Stable Instructions: Antibiotic Form, Ear Infection (ED) Additional Instructions: Take antibiotic drops as directed. Tylenol and ibuprofen as needed for pain or fevers. Follow instructions on the bottle. Avoid water or anything into the ear for one week Follow up with your personal physician for further evaluation and treatment within 3-5days. If your symptoms persist, change or worsen significantly, go to the emergency department for further evaluation. Patient Language: Kuwaiti Prescriptions: New ofloxacin 0.3 % drops 10 drp LEFT EAR DAILY 7 Days Qty: 10 0RF No Action lamotrigine 200 mg tablet 200 mg PO BID escitalopram oxalate 20 mg tablet 20 mg PO DAILY propranolol 40 mg tablet levetiracetam 250 mg tablet PO dextroamphetamine-amphetamine 20 mg tablet famotidine 20 mg tablet levonorgestrel-ethinyl estrad 0.15 mg-30 mcg (91) tablets,dose pack,3 month Follow-up/Referrals: Jayden Diallo MD [Primary Care Provider, Family Practice] Time of Disposition: 19:50
--- OUTSIDE RECORDS SUMMARY | 2025-06-20 20:25 | XMS_ITS | Encounter Summary ---
Author Organization [facility] Address [address] [place] [address] Phone Care Team Providers Care Real Estate Analyst Name Role Phone Sherie Wright Primary Care Pro vider Marguerite Ponce SUPERVISOR BEET END, ENROLLED NURSE Unavailable +- [phone] Reason for Visit * Reason Comments Medication Refill Encounter Details Date Type Department Care Team (Late st Contact Info) Description 12/18/2023 [facility]ill [facility] [address] [place] [address] Sherie Wright, [facility] [address] [place] [address] Medication Refill Social History Tobacco Use Types Packs/Day Years Used Date Smoking Tobacco: Former Cigarettes Smokeless Tobacco: Never Alcohol Use Standard Drinks/Week Comments Yes 0 (1 standard drink = 0.6 oz pur e alcohol) [facility] Utilities Answer Date Recorded In the past 12 months has [employer], gas, oil, or water [employer] threatened to shut off services in your home? No 07/16/2023 Social Connection and Isolation Panel Answer Date Recorded In a typical week, how many times do you talk on the phone with family, friends, or neighbors? More than three times a week 07/16/2023 How often do you get togethe r with friends or relatives? Once a week 07/16/2023 How often do you attend [facility] or caodaism services? More than 4 times per year 07/16/2023 Do you belong to any clubs o r organizations such as uatsdin groups, unions, fraternal or athletic groups, or [...] medical care, and heating? Somewhat hard 07/16/2023 [facility] of Occupat ional [facility] - Occupational Stress Questionnaire Answer Date [...] Sex Assigned at Female 07/04/2023 10:09 AM NAME PLATE STAMPING MACHINE OPERATOR Legal Sex Female 1:54 PM NAME PLATE STAMPING MACHINE OPERATOR Gender Identity Female 07/04/2023 10:09 AM NAME PLATE STAMPING MACHINE OPERATOR Sexual Orientation Straight 07/04/2023 10 :09 AM NAME PLATE STAMPING MACHINE OPERATOR documented as of this encounter Miscellaneous Notes [...] Office Visit Sherie Wright PAC [facility] [place] 10/23/23 Office Visit Sherie Wright PAC [facility] 09/29/23 Office Visit Sherie Wright PAC [facility] [place] 07/21/23 Telemedicine Sherie Wright PAC [facility] [place] 07/18/23 Office Visit Sherie Wright PAC [facility] [place] 07/04/23 Office Visit Sherie Wright PAC [facility] [place] Showing recent visits within past 365 days and meeting all other requirements Future Appointments Date Type Provider Dept 01/16/24 Appointment Sherie Wright PAC [facility] [place] Showing future appointments within next 90 days and meeting all other requirements Passed - No active on record documented in this encounter Plan of Treatment Not on file documented as of this encounter Goals Goal Patient Goal Type Associated Problems Recent Progress Patient-Stated? Author process stressors Behavioral Health Improving( 11:03 AM CDT) No Cynthia Wiggins, PHYSICAL THERAPY TECHNICIAN Note: Goal/Objective: Decrease anxiety and depression through processing difficulties. Anticipated Time Frame for Goal Completion: 6 months Goal Reviewed with: patient Readiness to change: Ready to change Department associated with goal: [facility] Steps to achieve [...] on filedocumented in this encounter Care Teams Real Estate Analyst Relationship Specialty Start Date End Date Sherie Wright PAC PCP - General Physician Volleyball Player 07/04/23 04/14/24 Marguerite Ponce APRN, ENROLLED NURSE [address] [place] [address] Nurse Practitioner Advanced Practice Nurse 07/28/23 documented as of this encounter
--- OUTSIDE RECORDS SUMMARY | 2025-06-20 20:25 | XMS_ITS | Encounter Summary ---
Author Organization [facility] Address [address] [place] [address] Phone Care Team Providers Care Grid Molder Name Role Phone Sherie Wright Primary Care Pro vider Marguerite Ponce CHIEF LIBRARIAN MUSIC DEPARTMENT, NURSING MANAGER Unavailable +- [phone] Reason for Visit * Reason Comments Medication Refill Encounter Details Date Type Department Care Team (Late st Contact Info) Description 09/10/2023 Refill [facility] [address] [place] [address] Sherie Wright, [facility] [address] [place] [address] Medication Refill Social History Tobacco Use Types Packs/Day Years Used Date Smoking Tobacco: Former Cigarettes Smokeless Tobacco: Never Alcohol Use Standard Drinks/Week Comments Yes 0 (1 standard drink = 0.6 oz pur e alcohol) [facility] Utilities Answer Date Recorded In the past 12 months has [employer], gas, oil, or water [employer] threatened to shut off services in your home? No 07/16/2023 Social Connection and Isolation Panel Answer Date Recorded In a typical week, how many times do you talk on the phone with family, friends, or neighbors? More than three times a week 07/16/2023 How often do you get togethe r with friends or relatives? Once a week 07/16/2023 How often do you attend [facility] or roman catholic services? More than 4 times per year 07/16/2023 Do you belong to any clubs o r organizations such as catholic groups, unions, fraternal or athletic groups, or [...] care, and heating? Somewhat hard 07/16/2023 [facility] of Occupat ional [facility] - Occupational Stress Questionnaire Answer Date Recorded [...] place to sleep or slept in a skilled nursing (including now)? No 07/16/2023 Comments No Sex and Gender Information Value Date Recorded Sex Assigned at Female 07/04/2023 10:09 AM GUNSTOCK SPRAY UNIT FEEDER Legal Sex Female 1:54 PM GUNSTOCK SPRAY UNIT FEEDER Gender Identity Female 07/04/2023 10:09 AM GUNSTOCK SPRAY UNIT FEEDER Sexual Orientation Straight 07/04/2023 10 :09 AM GUNSTOCK SPRAY UNIT FEEDER documented as of this encounter Miscellaneous Notes * Telephone Encounter - Sherie Wright PAC - 09/10/2023 4:56 PM CST Does this pt see NEURO for seizures? What is she on the keppra for? TOCK SPRAY UNIT FEEDER * Telephone Encounter - Peggy Weeks RN [...] 07/21/23 Telemedicine Sherie Wright PAC [facility] [place] 07/18/23 Office Visit Sherie Wright PAC [facility] [place] 07/04/23 Office Visit Sherie Wright PAC [facility] [place] Showing recent visits within past 365 days and meeting all other requirements Future Appointments No visits were found meeting these conditions. Showing future appointments within next 90 days and meeting all other requirements TOCK SPRAY UNIT FEEDER documented in this encounter Plan of Treatment [...] Ready to change Department associated with goal: [facility] HE[facility] Steps to [...] on filedocumented in this encounter Care Teams Grid Molder Relationship Specialty Start Date End Date Sherie Wright, THOMAS PCP - General Physician Regional Facilities Manager 07/04/23 04/14/24 Marguerite Ponce APRN, NURSING MANAGER [address] [place] [address] Nurse Practitioner Advanced Practice Nurse 07/28/23 documented as of this encounter
--- OUTSIDE RECORDS SUMMARY | 2025-06-20 20:25 | XMS_ITS | Encounter Summary ---
Author Organization [facility] Address [address] [place] [address] Phone Care Team Providers Care Supervisor Orchard Name Role Phone Sherie Wright Primary Care Pro vider Marguerite Ponce DIGITAL IMAGER, ECONOMETRICS PROFESSOR Unavailable +- [phone] Reason for Visit * Reason Comments Medication Refill Encounter Details Date Type Department Care Team (Late st Contact Info) Description 11/03/2023 Refill [facility] [address] [place] [address] Sherie Wright, [facility] [address] [place] [address] Medication Refill Social History Tobacco Use Types Packs/Day Years Used Date Smoking Tobacco: Former Cigarettes Smokeless Tobacco: Never Alcohol Use Standard Drinks/Week Comments Yes 0 (1 standard drink = 0.6 oz pur e alcohol) [facility] Utilities Answer Date Recorded In the past 12 months has [employer], gas, oil, or water [employer] threatened to shut off services in your home? No 07/16/2023 Social Connection and Isolation Panel Answer Date Recorded In a typical week, how many times do you talk on the phone with family, friends, or neighbors? More than three times a week 07/16/2023 How often do you get togethe r with friends or relatives? Once a week 07/16/2023 How often do you attend [facility] or baptist services? More than 4 times per year 07/16/2023 Do you belong to any clubs o r organizations such as orthodox groups, unions, fraternal or athletic groups, or [...] medical care, and heating? Somewhat hard 07/16/2023 [facility] of Occupat ional [facility] - Occupational Stress Questionnaire Answer [...] place to sleep or slept in a nursing home (including now)? No 07/16/2023 Comments No Sex and Gender Information Value Date Recorded Sex Assigned at Female 07/04/2023 10:09 AM RAIL CAR UNLOADER Legal Sex Female 1:54 PM RAIL CAR UNLOADER Gender Identity Female 07/04/2023 10:09 AM RAIL CAR UNLOADER Sexual Orientation Straight 07/04/2023 10 :09 AM RAIL CAR UNLOADER documented as of this encounter Miscellaneous Notes [...] Office Visit Sherie Wright PAC [facility] [place] 10/23/23 Office Visit Sherie Wright PAC [facility] 09/29/23 Office Visit Sherie Wright PAC [facility] [place] 07/21/23 Telemedicine Sherie Wright PAC [facility] [place] 07/18/23 Office Visit Sherie Wright PAC [facility] [place] 07/04/23 Office Visit Sherie Wright PAC [facility] [place] Showing recent visits within past 365 days [...] Health Improving( 11:03 AM CDT) No Cynthia Wiggnis LCSW Note: Goal/Objective: Decrease anxiety and depression through processing difficulties. Anticipated Time Frame for Goal Completion: 6 months Goal Reviewed with: patient Readiness to change: Ready to change Department associated with goal: [facility] BEHAV[facility]AL HE[facility] SERVICES Steps [...] on filedocumented in this encounter Care Teams Supervisor Orchard Relationship Specialty Start Date End Date Sherie Wright, THOMAS PCP - General Physician Assistant Professor Of Psychology 07/04/23 04/14/24 Marguerite Ponce APRN, ECONOMETRICS PROFESSOR [address] [place] [address] Nurse Practitioner Advanced Practice Nurse 07/28/23 documented as of this encounter
--- OUTSIDE RECORDS SUMMARY | 2025-06-20 20:25 | XMS_ITS | Encounter Summary ---
Author Organization [facility] Address [address] [place] [address] Phone Care Team Providers Care Head Waiter Name Role Phone Sherie Wright Primary Care Pro vider Marguerite Ponce SCHOOL AGE TEACHER, SPOT CLEANER Unavailable +- [phone] Reason for Visit * Reason Comments Medication Refill Encounter Details Date Type Department Care Team (Late st Contact Info) Description 07/23/2023 Refill [facility] [place] [address] [place] [address] Sherie Wright, [facility] [address] [place] [address] Medication Refill Social History Tobacco Use Types Packs/Day Years Used Date Smoking Tobacco: Former Cigarettes Smokeless Tobacco: Never Alcohol Use Standard Drinks/Week Comments Yes 0 (1 standard drink = 0.6 oz pur e alcohol) [facility] Utilities Answer Date Recorded In the past 12 months has [employer], gas, oil, or water [employer] threatened to shut off services in your home? No 07/16/2023 Social Connection and Isolation Panel Answer Date Recorded In a typical week, how many times do you talk on the phone with family, friends, or neighbors? More than three times a week 07/16/2023 How often do you get togethe r with friends or relatives? Once a week 07/16/2023 How often do you attend [facility] or zoroastrianism services? More than 4 times per year 07/16/2023 Do you belong to any clubs o r organizations such as tenriism groups, unions, fraternal or athletic groups, or [...] medical care, and heating? Somewhat hard 07/16/2023 [facility] of Occupat ional [facility] - Occupational Stress Questionnaire Answer Date Recorded [...] place to sleep or slept in a long-term (including now)? No 07/16/2023 Comments No Sex and Gender Information Value Date Recorded Sex Assigned at Female 07/04/2023 10:09 AM DIRECTOR OF COMMUNICATIONS Legal Sex Female 1:54 PM DIRECTOR OF COMMUNICATIONS Gender Identity Female 07/04/2023 10:09 AM DIRECTOR OF COMMUNICATIONS Sexual Orientation Straight 07/04/2023 10 :09 AM DIRECTOR OF COMMUNICATIONS documented as of this encounter Plan of Treatment Not on file documented as of this encounter Visit Diagnoses Not on filedocumented in this encounter Additional Health Concerns Infection Onset Date Last Indicated Resolved Time COVID - 19 Confirmed 07/04/2023 07/04/2023 024 12:16 AM DIRECTOR OF COMMUNICATIONS documented as of this encounter Care Teams Head Waiter Relationship Specialty Start Date End Date Sherie Wright, PAC PCP - General Physician Electric Cell Tender 07/04/23 04/14/24 Marguerite Ponce, SCHOOL AGE TEACHER, SPOT CLEANER [address] [place] [address] Nurse Practitioner Advanced Practice Nurse 07/28/23 documented as of this encounter
--- OUTSIDE RECORDS SUMMARY | 2025-06-20 20:25 | XMS_ITS | Encounter Summary ---
Author Organization [facility] Address [address] [place] [address] Phone Care Team Providers Care Storage Receipt Poster Name Role Phone Marguerite Ponce APRN, PORTABLE CANTEEN OPERATOR Unavailable [phone] Reason for Visit * Reason Comments Medication Refill Encounter Details Date Type Department Care Team (Late st Contact Info) Description 04/17/2024 Refill [facility] [address] [place] [id number] Sherie Wright, [facility] [address] [place] [address] Medication Refill Social History Tobacco Use Types Packs/Day Years Used Date Smoking Tobacco: Former Cigarettes Smokeless Tobacco: Never Alcohol Use Standard Drinks/Week Comments Yes 0 (1 standard drink = 0.6 oz pur e alcohol) [facility] Utilities Answer Date Recorded In the past 12 months has [employer], [employer], oil, or water [employer] threatened to shut off services in your home? No 07/16/2023 Social Connection and Isolation Panel Answer Date Recorded In a typical week, how many times do you talk on the phone with family, friends, or neighbors? More than three times a week 07/16/2023 How often do you get togethe r with friends or relatives? Once a week 07/16/2023 How often do you attend [facility] or scientology services? More than 4 times per year 07/16/2023 Do you belong to any clubs o r organizations such as yazidism groups, unions, fraternal or athletic groups, or [...] medical care, and heating? Somewhat hard 07/16/2023 [facility] of Occupat ional Health - Occupational Stress [...] Sex Assigned at Female 07/04/2023 10:09 AM NONPROFIT MANAGER Legal Sex Female 1:54 PM NONPROFIT MANAGER Gender Identity Female 07/04/2023 10:09 AM NONPROFIT MANAGER Sexual Orientation Straight 07/04/2023 10 :09 AM NONPROFIT MANAGER documented as of this encounter Miscellaneous [...] on filedocumented in this encounter Care Teams Storage Receipt Poster Relationship Specialty Start Date End Date Marguerite Ponce APRN, PORTABLE CANTEEN OPERATOR [address] [place] [address] Nurse Practitioner Advanced Practice Nurse 07/28/23 documented as of this encounter
--- OUTSIDE RECORDS SUMMARY | 2025-06-20 20:25 | XMS_ITS | Encounter Summary ---
Author Organization [facility] Address [address] [place] [address] Phone Care Team Providers Care Gas Check Pad Maker Name Role Phone Sherie Wright Primary Care Pro vider Marguerite Ponce ENGINEER, RATING OFFICER Unavailable +- [phone] Reason for Visit * Reason Comments Medication Refill Encounter Details Date Type Department Care Team (Late st Contact Info) Description 10/24/2023 [facility]ill [facility] [address] [place] [address] Sherie Wright, [facility] [address] [place] [address] Medication Refill Social History Tobacco Use Types Packs/Day Years Used Date Smoking Tobacco: Former Cigarettes Smokeless Tobacco: Never Alcohol Use Standard Drinks/Week Comments Yes 0 (1 standard drink = 0.6 oz pur e alcohol) [facility] Utilities Answer Date Recorded In the past 12 months has [employer], gas, oil, or water [facility] threatened to shut off services in your home? No 07/16/2023 Social Connection and Isolation Panel Answer Date Recorded In a typical week, how many times do you talk on the phone with family, friends, or neighbors? More than three times a week 07/16/2023 How often do you get togethe r with friends or relatives? Once a week 07/16/2023 How often do you attend [facility] or rastafari services? More than 4 times per year 07/16/2023 Do you belong to any clubs o r organizations such as sabianist groups, unions, fraternal or athletic groups, or [...] medical care, and heating? Somewhat hard 07/16/2023 [facility] of Occupat ional [facility] - Occupational Stress Questionnaire Answer [...] Sex Assigned at Female 07/04/2023 10:09 AM ALLIED HEALTH TEACHER Legal Sex Female 1:54 PM ALLIED HEALTH TEACHER Gender Identity Female 07/04/2023 10:09 AM ALLIED HEALTH TEACHER Sexual Orientation Straight 07/04/2023 10 :09 AM ALLIED HEALTH TEACHER documented as of this encounter Functional Status documented as of this encounter Mental Status * Question Answer Entry Date Author BP 112/74 10/27/2023 3:22 PM CDT Poly John, RMA Temp 97.5 10/27/2023 3:22 PM CDT Poly John, RMA Pulse 74 10/27/2023 3:22 PM CDT Poly John, RMA SpO2 97 10/27/2023 3:22 PM CDT Poly John, RMA documented in this encounter Miscellaneous Notes * Telephone Encounter [...] Type Provider Dept 10/23/23 Office Visit Sherie Wright, TH[facility]AS [facility] 09/[facility]/23 Office Visit Sherie Wright, THOMAS [facility] 07/21/23 Telemedicine Sherie Wright, THOMAS [facility] 07/18/23 Office Visit Sherie Wright, THOMAS [facility] 07/04/23 Office Visit Sherie Wright, THOMAS [facility] Showing recent visits within past 365 days and meeting all other requirements Future Appointments Date Type Provider Dept 01/16/24 Appointment Sherie WrightTHOMAS [facility] Showing future appointments within next 90 days [...] Ready to change Department associated with goal: [facility] Steps to achieve [...] on filedocumented in this encounter Care Teams Gas Check Pad Maker Relationship Specialty Start Date End Date Adriana THOMAS Gerber PCP - General Physician Vegetable Trimmer 07/04/23 04/14/24 Marguerite Ponce, ENGINEER, RATING OFFICER [address] [place] [address] Nurse Practitioner Advanced Practice Nurse 07/28/23 documented as of this encounter
--- OUTSIDE RECORDS SUMMARY | 2025-06-20 20:25 | XMS_ITS | Clinical Summary ---
Author Organization [facility] Address [address] [facility] [facility] [place] [address] Phone Care Team Providers Care Powerhouse Helper Name Role Phone Marguerite Ponce APRN, BUSINESS ANALYTICS FACULTY MEMBER Unavailable [phone] Allergies Active Allergy Reactions Criticality Noted Date [...] Recorded In the past 12 months has [employer], gas, oil, or water [employer] threatened to shut off services in your [...] How often do you attend chur or lutheran services? More than 4 times per year 07/16/2023 Do you belong to any clubs o r organizations such as congregation groups, unions, fraternal or athletic groups, or [...] medical care, and heating? Somewhat hard 07/16/2023 [facility] [place] of Occupat ional Health - Occupational Stress [...] place to sleep or slept in a fci (including now)? No 07/16/2023 Comments No Sex and Gender Information Value Date Recorded Sex Assigned at Female 07/04/2023 10:09 AM MANAGER STRATEGIC SOURCING Legal Sex Female 1:54 PM MANAGER STRATEGIC SOURCING Gender Identity Female 07/04/2023 10:09 AM MANAGER STRATEGIC SOURCING Sexual Orientation Straight 07/04/2023 10 :09 AM MANAGER STRATEGIC SOURCING Last Filed Vital Signs Vital Sign Reading [...] Comments Hepatitis C Virus (HCV) Screening 1988 Varicella Immunization (1 of 2 - 13+ 2-dose series) 2001 Hepatitis B Immunization (1 of 3 - 19+ 3-dose series) 09/20/2007 Pap Smear 2009 Human Papillomavirus (HPV) Immunization (1 - 3-dose SCDM series) 09/20/2015 Cervical Cancer Screening (CCS) 2018 HPV/Cotest 2018 Td Immunization Every 10 Yea rs (Adults With 1 Tdap) 11/24/2024 11/24/2014, 07/14/2014 Influenza Immunization (#1) 2025 11/0 10/2018, 06/29/2015 SARS-COV-2 Immunization (2 - season) 2025 11/12/2020 Respiratory Syncytial Virus (RSV) [...] Improving( 11:03 AM CDT) No Cynthia Wiggins, SHUTTLE BUS DRIVER Note: Goal/Objective: Decrease anxiety and depression through processing difficulties. Anticipated Time Frame for Goal Completion: 6 months Goal Reviewed with: patient Readiness to change: Ready to change Department associated with goal: [facility] Steps to achieve [...] W/ ESTIMATED GLUCOSE Routine 07/28/2023 8:00 AM MANAGER STRATEGIC SOURCING Well adult exam from Last 3 Months or Most Recently Relevant to Health Maintenance Results * HEMOGLOBIN A1C W/ ESTIMATED GLUCOSE (07/28/2023 8:00 AM MANAGER STRATEGIC SOURCING) HGB-A1C 5.0 4.0 - 6.0 % 07/28/2023 3:29 PM MANAGER STRATEGIC SOURCING [facility] Est Average Glucose 96.8 mg/dL 07/28/2023 3:29 PM MANAGER STRATEGIC SOURCING [facility] Blood Venipuncture / Unknown 07/28/2023 8:00 AM MANAGER STRATEGIC SOURCING 07/28/2023 8:00 AM MANAGER STRATEGIC SOURCING Narrative [facility] - 07/28/2023 3:29 PM MANAGER STRATEGIC SOURCING HEMOGLOBIN A1C: DIABETIC PATIENTS: WELL-CONTROLLED: 6.2 - 7.0 INTERMEDIATE WELL-CONTROLLED: 7.0 - 9.0 POORLY-CONTROLLED: >9.0 Sherie Wright PAC CHEMISTRY ORDERAB LES Final Result [facility] [address] [place] [address] from Last 3 Months or Most Recently Relevant to Health Maintenance Insurance [place]ICAID [place] Care Teams Powerhouse Helper Relationship Specialty Start Date End Date Marguerite Ponce, FOOD PRODUCTION WORKER, BUSINESS ANALYTICS FACULTY MEMBER [address] [place] [address] Nurse Practitioner Advanced Practice Nurse 07/28/23
--- OUTSIDE RECORDS SUMMARY | 2025-06-20 20:25 | XMS_ITS | Encounter Summary ---
Author Organization [facility] Address [address] [place] [address] Phone Care Team Providers Care Program Proposals Coordinator Name Role Phone Sherie Wright Primary Care Pro vider Marguerite Ponce JEWELRY DESIGNER, ED TRANSPORTER Unavailable +- [phone] Reason for Visit * Reason Comments Medication Refill Encounter Details Date Type Department Care Team (Late st Contact Info) Description 11/14/2023 Refill [facility] [address] [address] Sherie Wright, [facility] [address] [place] [address] Medication Refill Social History Tobacco Use Types Packs/Day Years Used Date Smoking Tobacco: Former Cigarettes Smokeless Tobacco: Never Alcohol Use Standard Drinks/Week Comments Yes 0 (1 standard drink = 0.6 oz pur e alcohol) [facility] Utilities Answer Date Recorded In the past 12 months has [employer], gas, oil, or water [employer] threatened to shut off services in your [...] How often do you attend [facility] or confucianism services? More than 4 times per year 07/16/2023 Do you belong to any clubs o r organizations such as jain groups, unions, fraternal or athletic groups, or [...] medical care, and heating? Somewhat hard 07/16/2023 [facility] of Occupat ional [facility] - Occupational Stress Questionnaire [...] place to sleep or slept in a residential (including now)? No 07/16/2023 Comments No Sex and Gender Information Value Date Recorded Sex Assigned at Female 07/04/2023 10:09 AM DIRECTOR BUILDING Legal Sex Female 1:54 PM DIRECTOR BUILDING Gender Identity Female 07/04/2023 10:09 AM DIRECTOR BUILDING Sexual Orientation Straight 07/04/2023 10 :09 AM DIRECTOR BUILDING documented as of this encounter Miscellaneous Notes [...] Office Visit Sherie Wright PAC [facility] 10/23/23 Office Visit Sherie Wright PAC [facility] 09/29/23 Office Visit Sherie Wright PAC [facility] 07/21/23 Telemedicine Sherie Wright PAC [facility] 07/18/23 Office Visit Sherie Wright PAC [facility] 07/04/23 Office Visit Sherie Wright PAC [facility] Showing recent visits within past 365 days and meeting all other requirements Future Appointments Date Type Provider Dept 01/16/24 Appointment Sherie Wright PAC [facility] Showing future appointments within next 90 days and meeting all other requirements Passed - No active on record documented in this encounter Plan of Treatment Not on file documented as of this encounter Goals Goal Patient Goal Type Associated Problems Recent Progress Patient-Stated? Author process stressors Behavioral Health Improving( 11:03 AM CDT) No Cynthia Wiggins, LINER REROLL TENDER Note: Goal/Objective: Decrease anxiety and depression through processing difficulties. Anticipated Time Frame for Goal Completion: 6 months Goal Reviewed with: patient Readiness to change: Ready to change Department associated with goal: [facility] Steps to achieve [...] on filedocumented in this encounter Care Teams Program Proposals Coordinator Relationship Specialty Start Date End Date Sherie Wright PAC PCP - General Physician Leadership Recruiter 07/04/23 04/14/24 Marguerite Ponce APRN, ED TRANSPORTER [address] [place] [address] Nurse Practitioner Advanced Practice Nurse 07/28/23 documented as of this encounter
--- OUTSIDE RECORDS SUMMARY | 2025-06-20 20:25 | XMS_ITS | Clinical Summary ---
Author Organization [facility] Address [address] [place] [address] Care Team Providers Care Christian Counselor Name Role Phone Unavailable Primary Care Provider [...]
--- OUTSIDE RECORDS SUMMARY | 2025-06-20 20:36 | XMS_ITS | Clinical Summary ---
Author Organization [facility] Address [address] [place] [address] Care Team Providers Care Small Kick Press Operator Name Role Phone aJyden Diallo MD Primary Care Provider [phone] Allergies Active Allergy Reactions Criticality Noted Date [...] on file Legal Sex Female 12:46 AM DRAIN CLEANER Gender Identity Not on file Sexual Orientation Not on file Last Filed Vital Signs Vital Sign Reading Time Taken Comments Blood Pressure 105/62 06/09/2024 4:37 PM DRAIN CLEANER Pulse 60 06/09/2024 4:37 PM DRAIN CLEANER Temperature 36.8 C (98.2 F) 06/09/2024 4:37 PM DRAIN CLEANER Respiratory Rate 20 06/09/2024 4:37 PM DRAIN CLEANER Oxygen Saturation 99% 06/09/2024 4:37 PM DRAIN CLEANER Inhaled Oxygen Concentration - - Weight 110.2 kg (242 lb 14.4 oz) 06/09/2024 4:37 PM DRAIN CLEANER Height 71.1 cm (2' 4) 06/09/2024 4:37 PM DRAIN CLEANER Body Mass Index 217.83 06/09/2024 4:37 PM DRAIN CLEANER Plan of Treatment Health Maintenance Due Date [...] complete this topic Insurance IDPA Care Teams Small Kick Press Operator Relationship Specialty Start Date End Date Jayden Diallo MD [address] [place] [address] PCP - General Family Medicine 06/09/24
== END 2025-06-20 19:56 | disposition home or self-care (01) ==
PROVIDERS: PCP Emergency Medicine
DX: H60.312 Diffuse otitis externa, left ear (principal); F41.9 Anxiety disorder, unspecified; G40.B09 Juvenile myoclonic epilepsy, not intractable, without status epilepticus
CPT/HCPCS: 99213; G0463

== ENCOUNTER 2025-07-03 12:16 | Emergency (ER) | payer OTHER, SELFPAY ==
--- OUTSIDE RECORDS SUMMARY | 2025-07-03 12:19 | XMS_ITS | Encounter Summary ---
Author Organization [facility] Address [address] [place] [address] Phone Care Team Providers Care Water Treatment Plant Mechanic Name Role Phone Sherie Wright Primary Care Pro vider Marguerite Ponce PUMP AND STILL OPERATOR, GARAGE WORKER Unavailable [phone]- [phone] Reason for Visit * Reason Comments Medication Refill Encounter Details Date Type Department Care Team (Late st Contact Info) Description 12/18/2023 Refill [facility] [address] [place] [address] Sherie Wright, [facility] [address] [place] [address] Medication Refill Social History Tobacco Use Types Packs/Day Years Used Date Smoking Tobacco: Former Cigarettes Smokeless Tobacco: Never Alcohol Use Standard Drinks/Week Comments Yes 0 (1 standard drink = 0.6 oz pur e alcohol) [facility] Utilities Answer Date Recorded In the past 12 months has [employer], gas, oil, or water [employer] threatened to shut off services in your home? No 07/16/2023 Social Connection and Isolation Panel Answer Date Recorded In a typical week, how many times do you talk on the phone with family, friends, or neighbors? More than three times a week 07/16/2023 How often do you get togethe r with friends or relatives? Once a week 07/16/2023 How often do you attend [facility] or mormonism services? More than 4 times per year 07/16/2023 Do you belong to any clubs o r organizations such as denominational groups, unions, fraternal or athletic groups, or [...] medical care, and heating? Somewhat hard 07/16/2023 [facility] of Occupat ional [facility] - Occupational Stress Questionnaire Answer Date [...] Sex Assigned at Female 07/04/2023 10:09 AM ATMOSPHERIC SCIENTIST Legal Sex Female 1:54 PM ATMOSPHERIC SCIENTIST Gender Identity Female 07/04/2023 10:09 AM ATMOSPHERIC SCIENTIST Sexual Orientation Straight 07/04/2023 10 :09 AM ATMOSPHERIC SCIENTIST documented as of this encounter Miscellaneous Notes [...] Office Visit Sherie Wright PAC [facility] 10/23/23 Office Visit Sherie Wright PAC [facility] 09/29/23 Office Visit Sherie Wright PAC [facility] 07/21/23 Telemedicine Sherie Wright PAC [facility] 07/18/23 Office Visit Sherie Wright PAC [facility] 07/04/23 Office Visit Sherie Wright PAC [facility] Showing recent visits within past 365 days and meeting all other requirements Future Appointments Date Type Provider Dept 01/16/24 Appointment Sherie Wright PAC [facility] Showing future appointments within next 90 days and meeting all other requirements Passed - No active on record documented in this encounter Plan of Treatment Not on file documented as of this encounter Goals Goal Patient Goal Type Associated Problems Recent Progress Patient-Stated? Author process stressors Behavioral Health Improving( 11:03 AM CDT) No Cynthia Wiggins, MANAGER LOAN Note: Goal/Objective: Decrease anxiety and depression through processing difficulties. Anticipated Time Frame for Goal Completion: 6 months Goal Reviewed with: patient Readiness to change: Ready to change Department associated with goal: [facility] Steps to achieve goal: [...] on filedocumented in this encounter Care Teams Water Treatment Plant Mechanic Relationship Specialty Start Date End Date Sherie Wright PAC PCP - General Physician Tablet Machine Operator 07/04/23 04/14/24 Marguerite Ponce APRN, GARAGE WORKER [address] [place] [address] Nurse Practitioner Advanced Practice Nurse 07/28/23 documented as of this encounter
--- OUTSIDE RECORDS SUMMARY | 2025-07-03 12:19 | XMS_ITS | Patient Health Record ---
Author Organization [facility] [employer] Address [address] [place] [address] Care Team Providers Care Sba Business Development Officer Name Role Phone Dr Noman Chandler Unavailable [phone] Allergies Allergen (clinical drug ingredient) Drug/Non Drug [...] Status W/U Status Risk Notes Problem Amenorrhea (52932674) Amenorrhea (N91.2) Active confirmed Plan Of Treatment No Information Insurance Providers Payer Name Payer Address Payer Phone Subscriber Number Group Number Insured Name Patient Relationship to Insured Coverage Start Date Coverage End Date [employer] [address] [address] [place] [address] [phone] [id number] Marleny Story Self - patient is the insured Medical (General) History Medical History History ICD Code epilepsy (no seizure since high school) migraine headaches hypotension PCOS (Polycystic Ovarian Syndrome) Surgical History Surgery Date(Month/Year) Hospitalization History Reason Date(Month/Year) 2014
--- OUTSIDE RECORDS SUMMARY | 2025-07-03 12:19 | XMS_ITS | Encounter Summary ---
Author Organization [facility] Address [address] [place] [address] Phone Care Team Providers Care Salvage Cutter Name Role Phone Sherie Wright Primary Care Pro vider Marguerite Ponce NURSE ASSESSOR, EVENTS INTERN Unavailable +- [phone] Reason for Visit * Reason Comments Medication Refill Encounter Details Date Type Department Care Team (Late st Contact Info) Description 09/10/2023 Refill [facility] [address] [place] [address] Sherie Wright, [facility] [address] [place] [address] Medication Refill Social History Tobacco Use Types Packs/Day Years Used Date Smoking Tobacco: Former Cigarettes Smokeless Tobacco: Never Alcohol Use Standard Drinks/Week Comments Yes 0 (1 standard drink = 0.6 oz pur e alcohol) [facility] Utilities Answer Date Recorded In the past 12 months has [employer], gas, oil, or water [employer] threatened to shut off services in your home? No 07/16/2023 Social Connection and Isolation Panel Answer Date Recorded In a typical week, how many times do you talk on the phone with family, friends, or neighbors? More than three times a week 07/16/2023 How often do you get togethe r with friends or relatives? Once a week 07/16/2023 How often do you attend [facility] or quaker services? More than 4 times per year [...] care, and heating? Somewhat hard 07/16/2023 [facility] of Occupat ional [facility] [...] Sex Assigned at Female 07/04/2023 10:09 AM CARE AIDE Legal Sex Female 1:54 PM CARE AIDE Gender Identity Female 07/04/2023 10:09 AM CARE AIDE Sexual Orientation Straight 07/04/2023 10 :09 AM CARE AIDE documented as of this encounter Miscellaneous Notes * Telephone Encounter - Shreie Wright PAC - 09/10/2023 4:56 PM CST Does this pt see NEURO for seizures? What is she on the keppra for? AIDE * Telephone Encounter - Peggy Weeks RN [...] 07/21/23 Telemedicine Sherie Wright PAC [facility] 07/18/23 Office Visit Sherie Wright PAC [facility] 07/04/23 Office Visit Sherie Wright PAC [facility] Showing recent visits within past 365 days and meeting all other requirements Future Appointments No visits were found meeting these conditions. Showing future appointments within next 90 days and meeting all other requirements AIDE documented in this encounter Plan of Treatment [...] Ready to change Department associated with goal: [facility] Steps to achieve [...] on filedocumented in this encounter Care Teams Salvage Cutter Relationship Specialty Start Date End Date Sherie Wright, THOMAS PCP - General Physician Tool And Gauge Inspector 07/04/23 04/14/24 Marguerite Ponce APRN, EVENTS INTERN [address] [place] [address] Nurse Practitioner Advanced Practice Nurse 07/28/23 documented as of this encounter
--- OUTSIDE RECORDS SUMMARY | 2025-07-03 12:19 | XMS_ITS | Patient Health Record ---
Author Organization [facility] Address [address] [place] [address] Phone [phone] Care Team Providers Care Conservation Policy Analyst Name Role Phone Ami Fong Primary Care Provider [phone] Allergies Allergen (clinical drug ingredient) Drug/Non Drug Allergy documented on EMR Reaction Allergy Type Onset Date Status Codeine Phosphate nausea and vomiting Drug Allergy Active Seasonale Unknown Drug Allergy Active Reason For Referral No Information Medications Medication SIG (Take, Route, Frequency, Duration) Notes Start Date End Date Diagnosis (ICD Code) Status lamoTRIgine 200 MG Tablet 1 tablet Orally twice a day Active Oxazepam 10 MG Capsule 1 capsule as needed Orally twice a day; Duration: 30 days 10/14/2023 NELA (generalized anxiety disorder) (ICD_10 - F41.1) Active Adderall 10 MG Tablet 1 tablet Orally Twice a day Active Adderall 5 MG Tablet 1 tablet Orally Twice a day Active Lo Loestrin Fe 1 MG-10 MCG / 10 MCG Tablet 1 tablet Orally Once a day Active metFORMIN HCl 500 MG Tablet 1 tablet with a meal Orally twice a day Active Topiramate 25 MG Tablet 1 tablet Orally twice a day Active Propranolol HCl 20 MG Tablet 1 tablet Orally four times a day Active Escitalopram Oxalate 20 MG Tablet 1 tablet Orally Once a day Active levETIRAcetam 500 MG Tablet 1 tablet Orally every 12 hrs Active Pantoprazole Sodium 40 MG Tablet Delayed Release 1 tablet Orally Once a day Active Social History Sex Observation Social History Observation Description Sex Observation Male Social History Primary Social History Social Info Question Answer Notes Living Arrangement Living Arrangement: Independent [facility] ing Is this a supportive environment? Yes Tobacco Use - do not use Tobacco Use: Status Reviewed with Patient Tobacco Use Status Reviewed on: 10/14/2023 Employment Status Employment Status: Unemployed Illicit Substance Usage Illicit Substance Usage: No Alcohol Use Alcohol Use Frequency: Monthly or less Tobacco Use: Social Info Question Answer Notes Tobacco Control (Standard) Additional Fi ndings: Tobacco user e-cigarette Section Notes: PRESCRIPTION # FILLED WRITTE N DRUG LABEL QTY DAYS STRENGTH MME PRESCRIBER PHARMACY REFILL NO. REFILLS STATE PATIENT [id number] 09/29/2023 09/29/2023 Oxazepam 28.0 14 10 MG NA Jatin Cutler Md - [id number] [place], [place] NA 0 [place] [id number] 09/10/2023 09/10/2023 Amphetamine Salt Combo 45.0 30 2.5 MG / 2.5 MG / 2.5 MG / 2.5 MG NA Sherie Winslow - [id number] [place], [place] NA 0 [place] [id number] 08/27/2023 08/25/2023 Amphetamine Salt Combo 60.0 30 1.25 MG / 1.25 MG / 1.25 MG / 1.25 MG NA Sherie Winslow - [id number] [place], [place] NA 0 [place] [id number] 08/11/2023 06/23/2023 Oxazepam 90.0 30 10 MG NA Ramsey Kelly - [id number] [place], [place] NA 1 [place] [id number] 07/22/2023 07/18/2023 Amphetamine Salt Combo 60.0 30 1.25 MG / 1.25 MG / 1.25 MG / 1.25 MG NA Sherie Winslow - [id number] [place], [place] NA 0 [place] [id number] 07/09/2023 06/09/2023 Phentermine Hcl 30.0 30 15 MG NA Chely Problems Problem Type SNOMED Code ICD Code Dates Problem Status W/U Status Risk Notes Problem Tobacco user (927847958) Nicotine dependence, unspecified, uncomplicated (F17.200) Added On:10/13 Active confirmed Problem Attention deficit hyperactivity disorder, 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 (F90.0) Added On:10/13 Active confirmed Problem Generalized anxiety disorder (80139333) NELA (generalized anxiety disorder) (F41.1) Added On:10/13 Active confirmed Problem Major depressive disorder (705901305) MDD (major depressive disorder) (F32.9) Added On:10/13 Active confirmed Plan Of Treatment No Information Insurance Providers Payer Name Payer Address Payer Phone Subscriber Number Group Number Insured Name Patient Relationship to Insured Coverage Start Date Coverage End Date [facility] [address] [place] [address] [phone] [id number] Marleny Story Self - patient is the insured 4 [facility] [address] [place] [address] [id number] 7 Marleny Story Self - patient is the insured 4 Medical (General) History Medical History History ICD Code epilepsy Seasonal Allergies Surgical History Surgery Date(Month/Year) C section 2015 Hospitalization History Reason Date(Month/Year) seizure in [place] 2021
--- OUTSIDE RECORDS SUMMARY | 2025-07-03 12:19 | XMS_ITS | Clinical Summary ---
Author Organization [facility] Address [address] [place] [address] Care Team Providers Care Roller Leveler Name Role Phone Unavailable Primary Care Provider [...]
--- OUTSIDE RECORDS SUMMARY | 2025-07-03 12:19 | XMS_ITS | Encounter Summary ---
Author Organization [facility] Address [address] [place] [address] Phone Care Team Providers Care Va Underwriter Name Role Phone Sherie Wright Primary Care Pro vider Marguerite Ponce STEAM AND POWER SUPERINTENDENT, LEAD MANUFACTURING ENGINEERING TECH Unavailable +- [phone] Reason for Visit * Reason Comments Medication Refill Encounter Details Date Type Department Care Team (Late st Contact Info) Description 07/23/2023 [facility]ill [facility] - [place] [address] [place] [address] Sherie Wright, [facility] [address] [place] [address] Medication Refill Social History Tobacco Use Types Packs/Day Years Used Date Smoking Tobacco: Former Cigarettes Smokeless Tobacco: Never Alcohol Use Standard Drinks/Week Comments Yes 0 (1 standard drink = 0.6 oz pur e alcohol) [facility] Utilities Answer Date Recorded In the past 12 months has [employer], gas, oil, or water [employer] threatened to shut off services in your home? No 07/16/2023 Social Connection and Isolation Panel Answer Date Recorded In a typical week, how many times do you talk on the phone with family, friends, or neighbors? More than three times a week 07/16/2023 How often do you get togethe r with friends or relatives? Once a week 07/16/2023 How often do you attend [facility] or oriental orthodox services? More than 4 times per year [...] medical care, and heating? Somewhat hard 07/16/2023 [facility] of Occupat ional [facility] - Occupational Stress Questionnaire Answer Date Recorded [...] place to sleep or slept in a snf (including now)? No 07/16/2023 Comments No Sex and Gender Information Value Date Recorded Sex Assigned at Female 07/04/2023 10:09 AM BOWLING BALL GRADER AND MARKER Legal Sex Female 1:54 PM BOWLING BALL GRADER AND MARKER Gender Identity Female 07/04/2023 10:09 AM BOWLING BALL GRADER AND MARKER Sexual Orientation Straight 07/04/2023 10 :09 AM BOWLING BALL GRADER AND MARKER documented as of this encounter Plan of Treatment Not on file documented as of this encounter Visit Diagnoses Not on filedocumented in this encounter Additional Health Concerns Infection Onset Date Last Indicated Resolved Time COVID - 19 Confirmed 07/04/2023 07/04/2023 024 12:16 AM BOWLING BALL GRADER AND MARKER documented as of this encounter Care Teams Va Underwriter Relationship Specialty Start Date End Date Sherie Wright, PAC PCP - General Physician Copyist 07/04/23 04/14/24 Margueriet Ponce, STEAM AND POWER SUPERINTENDENT, LEAD MANUFACTURING ENGINEERING TECH [address] [place] [address] Nurse Practitioner Advanced Practice Nurse 07/28/23 documented as of this encounter
--- OUTSIDE RECORDS SUMMARY | 2025-07-03 12:19 | XMS_ITS | Clinical Summary ---
Author Organization [facility] Address [address] [place] [address] Care Team Providers Care Guillotine Operator Name Role Phone No, Pcp MATERIAL REPROCESSING ASSOCIATE Primary Care Provider Unavailabl e Allergies Active Allergy Reactions Criticality Noted Date Comments Codeine GI Intolerance Medium 01/08/2019 Medications topiramate (TOPAMAX) 200 MG tablet topiramate 200 mg tablet Active escitalopram oxalate (LEXAPRO) 20 MG tablet escitalopram 20 mg tablet Active fluconazole (DIFLUCAN) 150 MG tablet Take 1 tablet (150 mg total) by mouth once as needed (yeast infection) for up to 1 dose. 1 tablet 1 9 Active Social History Tobacco Use Types Packs/Day Years Used Date Smoking Tobacco: Former Smokeless Tobacco: Never Tobacco Cessation:Counseling Given: Yes Comments No Sex and Gender Information Value Date Recorded Sex Assigned at Not on file Legal Sex Female 5:18 PM EDT Gender Identity Not on file Sexual Orientation Not on file Last Filed Vital Signs Vital Sign Reading Time Taken Comments Blood Pressure 106/64 01/08/2019 5:36 PM EDT Pulse 60 01/08/2019 5:36 PM EDT Temperature 36.9 C (98.4 F) 01/08/2019 5:36 PM EDT Respiratory Rate 16 01/08/2019 5:36 PM EDT Oxygen Saturation 98% 01/08/2019 5:36 PM EDT Inhaled Oxygen Concentration - - Weight 118 kg (260 lb) 01/08/2019 5:36 PM EDT Height 157.5 cm (5' 2) 01/08/2019 5:36 PM EDT Body Mass Index 47.55 01/08/2019 5:36 PM EDT Plan of Treatment Not on file Medical Devices Not on file Care Teams Guillotine Operator Relationship Specialty Start Date End Date No, Pcp, MATERIAL REPROCESSING ASSOCIATE N/A Do not use PCP - General Family Medicine 01/08/19
--- OUTSIDE RECORDS SUMMARY | 2025-07-03 12:19 | XMS_ITS | Clinical Summary ---
Author Organization [facility] Address [address] [place] [address] Phone Care Team Providers Care Network Control Supervisor Name Role Phone Marguerite Ponce APRN, COMMERCIAL ENGINEER Unavailable [phone] Allergies Active Allergy Reactions Criticality Noted Date [...] drink = 0.6 oz pur e alcohol) [facility] Utilities Answer Date Recorded In the past 12 months has [employer], gas, oil, or water [employer] threatened to shut off services in your [...] How often do you attend chur or mosque services? More than 4 times per year 07/16/2023 Do you belong to any clubs o r organizations such as jew groups, unions, fraternal or athletic groups, or [...] medical care, and heating? Somewhat hard 07/16/2023 [facility] [place] of Occupat ional Health - Occupational Stress [...] Sex Assigned at Female 07/04/2023 10:09 AM JUICE TESTER Legal Sex Female 1:54 PM JUICE TESTER Gender Identity Female 07/04/2023 10:09 AM JUICE TESTER Sexual Orientation Straight 07/04/2023 10 :09 AM JUICE TESTER Last Filed Vital Signs Vital Sign Reading [...] 19+ 3-dose series) 09/20/2007 Pap Smear 2009 Cervical Cancer Screening (CCS) 2018 HPV/Cotest 2018 Td Immunization Every 10 Yea rs (Adults With 1 Tdap) 11/24/2024 11/24/2014, 07/14/2014 Influenza Immunization (#1) 2025 11/0 10/2018, 06/29/2015 SARS-COV-2 Immunization ( - season) 2025 11/12/2020 Respiratory Syncytial Virus (RSV) Immunization (Adult) (1 - 1-dose 75+ series) 09/20/2063 DTaP/Tdap/Td Immunization Discontinued 2014, 07/14/2014 Diabetes: Hemoglobin A1c Discontinued 07/28/2023 Human Papillomavirus (HPV) Immunization (No Doses Required) Completed Meningococcal Immunization (ACWY) Aged Out No longer [...] Improving( 11:03 AM CDT) No Cynthia Wiggins, STORE MANAGER Note: Goal/Objective: Decrease anxiety and depression through processing difficulties. Anticipated Time Frame for Goal Completion: 6 months Goal Reviewed with: patient Readiness to change: Ready to change Department associated with goal: [facility] Steps to achieve goal: [...] W/ ESTIMATED GLUCOSE Routine 07/28/2023 8:00 AM JUICE TESTER Well adult exam from Last 3 Months or Most Recently Relevant to Health Maintenance Results * HEMOGLOBIN A1C W/ ESTIMATED GLUCOSE (07/28/2023 8:00 AM JUICE TESTER) HGB-A1C 5.0 4.0 - 6.0 % 07/28/2023 3:29 PM JUICE TESTER [facility] Est Average Glucose 96.8 mg/dL 07/28/2023 3:29 PM JUICE TESTER [facility] Blood Venipuncture / Unknown 07/28/2023 8:00 AM JUICE TESTER 07/28/2023 8:00 AM JUICE TESTER Narrative [facility] - 07/28/2023 3:29 PM JUICE TESTER HEMOGLOBIN A1C: DIABETIC PATIENTS: WELL-CONTROLLED: 6.2 - 7.0 INTERMEDIATE WELL-CONTROLLED: 7.0 - 9.0 POORLY-CONTROLLED: >9.0 us Sherie Wright PAC CHEMISTRY ORDERAB LES Final Result [facility] [address] [place] [address] from Last 3 Months or Most Recently Relevant to Health Maintenance Insurance MEDICAID [place] Care Teams Network Control Supervisor Relationship Specialty Start Date End Date Marguerite Ponce, SUPERVISOR LACE TEARING, COMMERCIAL ENGINEER [address] [place] [address] Nurse Practitioner Advanced Practice Nurse 07/28/23
--- OUTSIDE RECORDS SUMMARY | 2025-07-03 12:19 | XMS_ITS | Encounter Summary ---
Author Organization [facility] Address [address] [place] [address] Phone Care Team Providers Care Athletic Monitor Name Role Phone Marguerite Ponce APRN, AVIATION SAFETY OFFICER Unavailable [phone] Reason for Visit * Reason Comments Medication Refill Encounter Details Date Type Department Care Team (Late st Contact Info) Description 04/17/2024 Refill [facility] [address] [place] [address] Sherie Wright, [facility] [address] [place] [address] Medication Refill Social History Tobacco Use Types Packs/Day Years Used Date Smoking Tobacco: Former Cigarettes Smokeless Tobacco: Never Alcohol Use Standard Drinks/Week Comments Yes 0 (1 standard drink = 0.6 oz pur e alcohol) [facility] Utilities Answer Date Recorded In the past 12 months has [employer], [facility], oil, or water [employer] threatened to shut off services in your [...] 07/16/2023 How often do you attend [facility] or adventist services? More than 4 times per year 07/16/2023 Do you belong to any clubs o r organizations such as adventist groups, unions, fraternal or athletic groups, or [...] medical care, and heating? Somewhat hard 07/16/2023 [facility] [place] of Occupat ional Health - Occupational [...] place to sleep or slept in a prison (including now)? No 07/16/2023 Comments No Sex and Gender Information Value Date Recorded Sex Assigned at Female 07/04/2023 10:09 AM HUMAN RESOURCES OFFICE MANAGER Legal Sex Female 1:54 PM HUMAN RESOURCES OFFICE MANAGER Gender Identity Female 07/04/2023 10:09 AM HUMAN RESOURCES OFFICE MANAGER Sexual Orientation Straight 07/04/2023 10 :09 AM HUMAN RESOURCES OFFICE MANAGER documented as of this encounter Miscellaneous [...] Ready to change Department associated with goal: [facility] Steps to achieve [...] on filedocumented in this encounter Care Teams Athletic Monitor Relationship Specialty Start Date End Date Marguerite Ponce APRN, AVIATION SAFETY OFFICER [address] [place] [address] Nurse Practitioner Advanced Practice Nurse 07/28/23 documented as of this encounter
--- OUTSIDE RECORDS SUMMARY | 2025-07-03 12:19 | XMS_ITS | Encounter Summary ---
Author Organization [facility] Address [address] [place] [address] Phone Care Team Providers Care Catalogue Compiler Name Role Phone Sherie Wright Primary Care Pro vider Marguerite Ponce LEATHER FINISHER, CATALYST PLANT SUPERVISOR Unavailable [phone]- [phone] Reason for Visit * Reason Comments Medication Refill Encounter Details Date Type Department Care Team (Late st Contact Info) Description 10/24/2023 Refill [facility] [address] [place] [address] Sherie Wright, [facility] [address] [place] [address] Medication Refill Social History Tobacco Use Types Packs/Day Years Used Date Smoking Tobacco: Former Cigarettes Smokeless Tobacco: Never Alcohol Use Standard Drinks/Week Comments Yes 0 (1 standard drink = 0.6 oz pur e alcohol) [facility] Utilities Answer Date Recorded In the past 12 months has [employer], gas, oil, or water [employer] threatened to shut off services in your [...] often do you attend [facility] or druze services? More than 4 times per year [...] medical care, and heating? Somewhat hard 07/16/2023 [facility] of Occupat ional [facility] - Occupational Stress Questionnaire Answer Date [...] place to sleep or slept in a correction (including now)? No 07/16/2023 Comments No Sex and Gender Information Value Date Recorded Sex Assigned at Female 07/04/2023 10:09 AM ALGEBRAIST Legal Sex Female 1:54 PM ALGEBRAIST Gender Identity Female 07/04/2023 10:09 AM ALGEBRAIST Sexual Orientation Straight 07/04/2023 10 :09 AM ALGEBRAIST documented as of this encounter Functional Status [...] Dept 10/23/23 Office Visit Sherie Wright, [facility] 09/29/23 Office Visit Sherie Wright, THOMAS [facility] 07/21/23 Telemedicine Sherie Wrgiht, THOMAS [facility] 07/18/23 Office Visit Sherie Wright, THOMAS [facility] 07/04/23 Office Visit Sherie Wright, THOMAS [facility] Showing recent visits within past 365 days and meeting all other requirements Future Appointments Date Type Provider Dept 01/16/24 Appointment Sherie WrightTHOMAS [facility] Showing future appointments within next 90 days [...] Ready to change Department associated with goal: [facility] Steps to achieve [...] on filedocumented in this encounter Care Teams Catalogue Compiler Relationship Specialty Start Date End Date Adriana THOMAS Gerber PCP - General Physician Route Specialist 07/04/23 04/14/24 Marguerite Ponce, LEATHER FINISHER, CATALYST PLANT SUPERVISOR [address] [place] [address] Nurse Practitioner Advanced Practice Nurse 07/28/23 documented as of this encounter
--- OUTSIDE RECORDS SUMMARY | 2025-07-03 12:19 | XMS_ITS | Encounter Summary ---
Author Organization [facility] Address [address] [place] [address] Phone Care Team Providers Care Dye Blender Name Role Phone Sherie Wright Primary Care Pro vider Marguerite Ponce DIRECTOR OF MEDIA, RN ORTHOPAEDIC Unavailable +- [phone] Reason for Visit * Reason Comments Medication Refill Encounter Details Date Type Department Care Team (Late st Contact Info) Description 11/03/2023 Refill [facility] [address] [place] [address] Sherie Wright, [facility] [address] [place] [address] Medication Refill Social History Tobacco Use Types Packs/Day Years Used Date Smoking Tobacco: Former Cigarettes Smokeless Tobacco: Never Alcohol Use Standard Drinks/Week Comments Yes 0 (1 standard drink = 0.6 oz pur e alcohol) [facility] Utilities Answer Date Recorded In the past 12 months has [employer], gas, oil, or water [employer] threatened to shut off services in your [...] How often do you attend [facility] or orthodoxy services? More than 4 times per year 07/16/2023 Do you belong to any clubs o r organizations such as scientologist groups, unions, fraternal or athletic groups, or [...] medical care, and heating? Somewhat hard 07/16/2023 [facility] of Occupat ional [facility] - Occupational Stress Questionnaire Answer Date [...] place to sleep or slept in a halfway (including now)? No 07/16/2023 Comments No Sex and Gender Information Value Date Recorded Sex Assigned at Female 07/04/2023 10:09 AM VENDOR MANAGEMENT SPECIALIST Legal Sex Female 1:54 PM VENDOR MANAGEMENT SPECIALIST Gender Identity Female 07/04/2023 10:09 AM VENDOR MANAGEMENT SPECIALIST Sexual Orientation Straight 07/04/2023 10 :09 AM VENDOR MANAGEMENT SPECIALIST documented as of this encounter Miscellaneous Notes [...] Office Visit Sherie Wright PAC [facility] 10/23/23 Office Visit Sherie Wright PAC [facility] 09/29/23 Office Visit Sherie Wright PAC [facility] 07/21/23 Telemedicine Sherie Wright PAC [facility] 07/18/23 Office Visit Sherie Wright PAC [facility] 07/04/23 Office Visit Sherie Wright PAC [facility] [place] Showing recent visits within past 365 days [...] to change Department associated with goal: [facility] Steps to achieve goal: [...] on filedocumented in this encounter Care Teams Dye Blender Relationship Specialty Start Date End Date Sherie Wright, THOMAS PCP - General Physician Cable Operator 07/04/23 04/14/24 Marguerite Ponce APRN, RN ORTHOPAEDIC [address] [place] [address] Nurse Practitioner Advanced Practice Nurse 07/28/23 documented as of this encounter
--- OUTSIDE RECORDS SUMMARY | 2025-07-03 12:19 | XMS_ITS | Data Portability ---
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 Performed pap smear, Nuswab, venereal disease screening, TSH, CBC, UA, refilled medication. Follow-up in 1 month for weight loss counselling, further medication management. [email or web address] Not available 09/05/2023 15:29:34 Plan of Treatment Reminders Order Date Submit Date Provider Last Modified By Organization Details Last Modified Time Details Appointments None recorded. Lab urinalysis, dipstick 2023 024 [email or web address] In-Office Order, Internal Use Only DO Not Attach Compendium DO Not Attach Compendium, Do Not Delete/merge, [id number] 4 16:41:50 test, urine 2023 024 [email or web address] In-Office Order, Internal Use Only DO Not Attach Compendium DO Not Attach Compendium, Do Not Delete/merge, [id number] 4 16:41:49 HIV 1 + 2, meaningful use set 2023 024 [email or web address] [facility], [address] [place] [address], [address], [place], [address], 4 16:41:46 RPR (rapid plasma reagin), serum 2023 024 [email or web address] [facility], [address] [place] [address], [address], [place], [address], 4 16:41:46 HBsAg (hepatitis B surface Ag), EIA, serum 2023 024 [email or web address] [facility], [address] [place] [address], [address], [place], [address], 4 16:41:46 Hepatitis C IgG Ab, qual, serum 2023 024 [email or web address] [facility], [address] [place] [address], [address], [place], [address], 4 16:41:46 cytology report, thin prep, smear or scraping, cervical or vaginal 2023 024 [facility], [address], [address], 4 16:41:47 CBC w/ auto diff 2023 024 [facility], [address], [address], 4 16:41:46 vaginal pathogens panel, ARIK+probe, vaginal fluid 2023 024 [email or web address] [facility], [address], [address], 4 16:41:46 HbA1c (hemoglobin A1c), blood 2023 024 [email or web address] [facility], [address], [address], 4 16:41:46 TSH, ultra-sensi tive, serum 2023 024 [email or web address] [facility], [address], [address], 4 16:41:46 urinalysis, dipstick 2016 017 [email or web address] In-Office Order, Internal Use Only DO Not Attach Compendium DO Not Attach Compendium, Do Not Delete/merge, [id number] 7 22:36:22 bacterial vaginosis + vaginitis panel, vaginal 2016 [facility], [address] [place] [address], [address], [place], [address], 7 16:09:55 HBsAg (hepatitis B surface Ag), EIA, serum 2016 017 [facility], [address] [place] [address], [address], [place], [address], 7 07:14:48 HIV 1+2 AB + HIV 1 p24 Ag, qualitative immunoassay , serum 2016 017 [facility], [address] [place] [address], [address], [place], [address], 7 07:14:47 hsv (1+2) igg, serum 2016 017 [facility], [address] [place] [address], [address], [place], [address], 7 07:14:46 hepatitis C Ab, signal-to-c utoff, serum or plasma 2016 017 [facility], [address] [place] [address], [address], [place], [address], 7 07:14:48 RPR (rapid plasma reagin), serum 2016 017 [facility], [address] [facility], [address], [place], [address], 7 07:14:47 test, urine 2016 017 [email or web address] In-Office Order, Internal Use Only DO Not Attach Compendium DO Not Attach Compendium, Do Not Delete/merge, [id number] 7 13:16:22 bacterial vaginosis + vaginitis panel, vaginal 2016 017 [facility], [address] [facility], [address], [place], [address], 7 16:17:16 pap, IG + reflex HR HPV (16+18) 2016 017 [facility], [address] [facility], [address], [place], [address], 7 11:16:18 Referral None recorded. Procedures None recorded. Surgeries None recorded. Imaging MAMMO, diagnostic, digital, bilateral - R breast [address] (Mammography) , [address], [place], [address], 4 15:52:51 US, pelvis, complete - left sided pelvic pain 2016 017 MILLER Hook [facility] (Radiology), [address] [facility] [place], [address], 7 16:14:10 US, pelvis, complete - iud placement 2016 017 [email or web address] Hook [facility] (Radiology), [address] [facility] [place], [address], 7 13:34:45 Medication Orders Sprintec (28) 0.25 mg-0.035 mg tablet 2023 024 [facility][id number], [address], [place], [place], [id number], 4 12:19:58 metformin 500 mg tablet 2023 024 [facility]37527, [address], [place], [place], [id number], 4 12:19:08 ibuprofen 800 mg tablet 2016 017 [facility] #[id number], [address], [place], [id number], 4 10:42:40 ParaGard T 380A 380 square mm intrauterin e device 2016 017 [facility] [employer] [id number], [address], [place], [id number], 4 10:44:54 Patient TargetsNo targets recorded. Patient Instructions Encounter Date Encounter Id Patient Instructions Last Modified By Organization Details Last Modified Time 10/17/2016 [id number] When You Want to Lose Weight: Care [...] control. [email or web address] Not available 10/17/2016 18:02:27 10/24/2016 [id number] Paragard IUD was inserted without complications. Patient was instructed on how to feel for IUD strings. [email or web address] Not available 10/24/2016 13:34:08 02/05/2017 [id number] STD panel was ordered. Pelvic US was ordered. Will re-evaluate with results. [email or web address] Not available 02/05/2017 14:06:49 09/02/2023 [id number] A healthy lifestyle: care instructions [email or web address] Not available 09/05/2023 16:41:46 On the date of this encounter, I saw and examined the patient, personally verifying the king and critical findings in the resident s note. I reviewed and agree with the resident/fellow s findings and plan. ~MD Brian [email or web address] Not available 09/02/2023 11:57:02 02/02/2024 [id number] A healthy lifestyle: care instructions Not available 02/02/2024 20:35:34 Attending Physician Attestation [...] DO Not Attach Compendium, Do Not Delete/merge, [id number] 02/05/2017 12:27:53 02/06/20 17 02/05/2017 urina lysis , dipst ick Nitrite negati ve Not Available In-Office Order Internal Use Only DO Not Attach Compendium DO Not Attach Compendium, Do Not Delete/merge, [id number] 02/05/2017 12:27:53 02/06/20 17 02/05/2017 urina lysis , dipst ick Urobilinogen .2 Not Available In-Of fice Order Internal Use Only DO Not Attach Compendium DO Not Attach Compendium, Do Not Delete/merge, [id number] 02/05/2017 12:27:53 02/06/20 17 02/05/2017 urina lysis [...] 02/05/2017 urina lysis , dipst ick Specific [place] 1.020 Not Available In-Off ice Order Internal [...] DO Not Attach Compendium, Do Not Delete/merge, [id number] 02/05/2017 12:27:53 10/25/19 17 10/24/2016 pregn sera test, urine HCG negati ve Not Available In-Office Order Internal Use Only DO Not Attach Compendium DO Not Attach Compendium, Do Not Delete/merge, [id number] 10/24/2016 10:30:20 10/18/19 17 10/19/2016 bacte rial vagin osis + vagin itis panel , vagin al chlamydia trachomatis, ARIK NEGATI VE negati ve Not Available [facility] ([facility]) [address] [place], [address], 10/21/2016 16:17:16 10/18/19 17 10/19/2016 bacte rial vagin osis + vagin itis panel , vagin al neisseria gonorrhoeae, ARIK NEGATI VE negati ve Not Available [facility] ([facility]) [address] [place], [address], 10/21/2016 16:17:16 10/18/19 17 10/20/2016 bacte rial vagin osis + vagin itis panel , vagin al trich vag by ARIK NEGATI VE negati ve Not Available [facility] ([facility]) [address] [place], [address], 10/21/2016 16:17:16 10/18/19 17 10/21/2016 bacte rial vagin osis + vagin itis panel , vagin al atopobium vaginae LOW - 0 score Not Available [facility] ([facility]) [address] [place], [address], 10/21/2016 16:17:16 10/18/19 17 10/21/2016 bacte rial vagin osis + vagin itis panel , vagin al bvab 2 LOW - 0 score Not Available [facility] ([facility]) [address] [place], [address], 10/21/2016 16:17:16 04/06/20 17 10/21/2016 bacte rial [...] E OSMAR CTERI STICS DETER MINED BY [employer]. IT HAS NOT BEEN CLEAR ED OR APPRO ALISA BY THE FOOD AND DRUG ADMIN ISTRA TION. THE FDA HAS DETER MINED THAT SUCH CLEAR ANCE OR APPRO AYE IS NOT NECES [place]. Not Available [facility] ([facility]) [address] [place], [address], 10/21/2016 16:17:16 10/18/19 17 10/21/2016 bacte rial vagin osis + vagin itis panel , vagin al rosie albicans, ARIK POSITI VE negati ve abnormal Not Available [facility] ([facility]) [address] [place], [address], 10/21/2016 16:17:16 10/18/19 17 10/21/2016 bacte rial vagin osis + vagin itis panel , vagin al rosie glabrata, AIRK NEGATI VE negati ve THIS TEST WAS DEVEL OPED AND ITS PERFO RMANC E OSMAR CTERI STICS DETER MINED BY [employer]. IT HAS NOT BEEN CLEAR ED OR APPRO ALISA BY THE FOOD AND DRUG ADMIN ISTRA TION. THE FDA HAS DETER MINED THAT SUCH CLEAR ANCE OR APPRO AYE IS NOT NECES [place]. Not Available [facility] ([facility]) [address] [place], [address], 10/21/2016 16:17:16 10/18/19 17 10/21/2016 pap, IG + refle x HR HPV (16+1 8) HPV, high-risk NEGATI VE negati ve THIS HIGH- RISK HPV TEST DETEC TS THIRT EEN HIGH- RISK TYPES (16/1 8/31/ 33/35 /39/4 5/51/ 52/56 /58/5 ) WITHO UT DIFFE RENTI ATION . Not Available [facility] ([facility]) [address] [facility], [place], [address], 10/22/2016 11:16:18 10/18/19 17 10/22/2016 pap, IG [...] CONTR OL PROGR AM. Not Available [facility] ([facility]) [address] [facility], [place], [address], 10/22/2016 11:16:18 10/18/19 17 10/22/2016 pap, IG + refle x HR HPV (16+1 8) specimen adequacy: COMMEN T SATIS FACTO RY FOR EVALU ATION . ENDOC ERVIC AL AND/O R SQUAM OUS METAP LASTI C CELLS (ENDO CERVI JOHANNA COMPO NENT) ARE PRESE NT. Not Available [facility] ([facility]) [address] [facility], [place], [address], 10/22/2016 11:16:18 10/18/19 17 10/22/2016 pap, IG + refle x HR HPV (16+1 8) clinician provided ICD10: COMMEN T N89.8 Z01.4 19 Not Available [facility] ([facility]) [address] [facility], [place], [address], 10/22/2016 11:16:18 10/18/19 17 10/22/2016 pap, IG + refle x HR HPV (16+1 8) performed by: AMIRA LONGORIA , CYTOT ECHNO LOGIS T (ASCP ) Not Available [facility] ([facility]) [address] [place], [address], 10/22/2016 11:16:18 10/18/19 17 10/22/2016 pap, IG + refle x HR HPV (16+1 8) QC reviewed by: AMIRA BALLARD N, SUPER VISOR Y CYTOT ECHNO LOGIS T (ASCP ) Not Available [facility] ([facility]) [address] [place], [address], 10/22/2016 11:16:18 10/18/19 17 10/22/2016 pap, IG + refle x HR HPV (16+1 8) . . Not Available [facility] ([facility]) [address] [place], [address], 10/22/2016 11:16:18 10/18/19 17 10/22/2016 pap, IG + refle x HR HPV (16+1 8) pathologist provided ICD10: AMIRA Velásquez R87.5 Not Available [facility] ([facility]) [address] [place], [address], 10/22/2016 11:16:18 10/18/19 17 10/22/2016 pap, IG [...] TS DO OCCUR . Not Available [facility] ([facility]) [address] [facility], [place], [address], 10/22/2016 11:16:18 10/18/19 17 10/22/2016 pap, IG + refle x HR HPV (16+1 8) test methodology: COMMEN T THIS LIQUI D BASED THINP REP(R ) PAP TEST WAS GRACE JASSO WITH THE USE OF AN IMAGE GUIDE Arabella Cunningham. Not Available [facility] ([facility]) [address] [facility], [place], [address], 10/22/2016 11:16:18 02/06/20 17 02/06/2017 hsv (1+2) [...] DANIEL TO HSV-1 . Not Available [facility] ([facility]) [address] [facility], [place], [address], 02/06/2017 07:14:46 02/06/20 17 02/06/2017 hsv (1+2) [...] DANIEL TO HSV-2 . Not Available [facility] ([facility]) [address] [facility], [place], [address], 02/06/2017 07:14:46 02/06/20 17 02/06/2017 RPR (rapi d plasm a reagi n), serum RPR NON REACTI VE non reacti ve Not Available [facility] ([facility]) [address] [facility], [place], [address], 02/06/2017 07:14:47 02/06/20 17 02/06/2017 HIV 1+2 AB + HIV 1 p24 Ag, quali tativ e immun oassa y, serum HIV screen 4TH generation wrfx NON REACTI VE non reacti ve Not Available [facility] ([facility]) [address] [facility], [place], [address], 02/06/2017 07:14:47 02/06/20 17 02/05/2017 hepat itis C Ab, signa l-to- cutof f, serum or plasm a comment: COMMEN T NON REACT ELENA HCV ANTIB SHILO SCREE N IS CONSI STENT WITH NO HCV INFEC TION, UNLES S RECEN T INFEC TION IS SUSPE CTED OR OTHER EVIDE NCE EXIST S TO INDIC ATE HCV INFEC TION. Not Available [facility] ([facility]) [address] [facility], [place], [address], 02/06/2017 07:14:48 02/06/20 17 02/06/2017 hepat itis C Ab, signa l-to- cutof f, serum or plasm a HCV Ab 0.1 S/co_ ratio 0.0-0. 9 Not Available [facility] ([facility]) [address] [facility], [place], [address], 02/06/2017 07:14:48 02/06/2002/06/2017 HBsAg (hepa titis B surfa ce Ag), EIA, serum HBsAg screen NEGATI VE negati ve Not Available [facility] ([facility]) [address] [place] [address], [place], [address], 02/06/2017 07:14:48 02/06/20 17 02/07/2017 bacte rial vagin osis + vagin itis panel , vagin al trich vag by ARIK NEGATI VE negati ve Not Available [facility] ([facility]) [address] [place], [address], 02/08/2017 16:09:55 02/06/20 17 02/08/2017 bacte rial vagin osis + vagin itis panel , vagin al atopobium vaginae LOW - 0 score Not Available [facility] ([facility]) [address] [place], [address], 02/08/2017 16:09:55 02/06/20 17 02/08/2017 bacte rial vagin osis + vagin itis panel , vagin al bvab 2 LOW - 0 score Not Available [facility] ([facility]) [address] [place], [address], 02/08/2017 16:09:55 02/06/20 17 02/08/2017 bacte rial [...] IS NOT NECES [place]. Not Available [facility] ([facility]) [address] [place], [address], 02/08/2017 16:09:55 02/06/20 17 02/08/2017 bacte rial vagin osis + vagin itis panel , vagin al rosie albicans, ARIK NEGATI VE negati ve Not Available [facility] ([facility]) [address] [place], [address], 02/08/2017 16:09:55 02/06/20 17 02/08/2017 bacte rial [...] IS NOT NECES [place]. Not Available [facility] ([facility]) [address] [facility], [place], [address], 02/08/2017 16:09:55 02/06/20 17 02/08/2017 bacte rial vagin osis + vagin itis panel , vagin al chlamydia trachomatis, ARIK NEGATI VE negati ve Not Available [facility] ([facility]) [address] [place], [address], 02/08/2017 16:09:55 02/06/20 17 02/08/2017 bacte rial vagin osis + vagin itis panel , vagin al neisseria gonorrhoeae, ARIK NEGATI VE negati ve Not Available [facility] ([facility]) [address] [place], [address], 02/08/2017 16:09:55 09/02/19 24 09/02/2023 CBC WITH DIFFE RENTI AL/PL ATELE T WBC 6.8 x10e3 /uL 3.4-10 .8 Not Available [facility] [address] [place], [address], 09/03/2023 06:16:21 09/02/19 24 09/02/2023 CBC WITH DIFFE RENTI AL/PL ATELE T RBC 3.88 x10e6 /uL 3.77-5 .28 Not Available [facility] Department [address] [place], [address], 09/03/2023 06:16:21 09/02/19 24 09/02/2023 CBC WITH DIFFE RENTI AL/PL ATELE T hemoglobin 12.2 g/dL 11.1-1 5.9 Not Available [facility] Department [address] [place], [address], 09/03/2023 06:16:21 09/02/19 24 09/02/2023 CBC WITH DIFFE RENTI AL/PL ATELE T hematocrit 38.0 % 34.0-4 6.6 Not Available [facility] [address] [place], [address], 09/03/2023 06:16:21 09/02/19 24 09/02/2023 CBC WITH DIFFE RENTI AL/PL ATELE T MCV 98 fL 79-97 above high normal Not Available [facility] [address] [place], [address], 09/03/2023 06:16:21 09/02/19 24 09/02/2023 CBC WITH DIFFE RENTI AL/PL ATELE T MCH 31.4 pg 26.6-3 3.0 Not Available [facility] [address] [place], [address], 09/03/2023 06:16:21 09/02/19 24 09/02/2023 CBC WITH DIFFE RENTI AL/PL ATELE T MCHC 32.1 g/dL 31.5-3 5.7 Not Available [facility] [address] [place], [address], 09/03/2023 06:16:21 09/02/19 24 09/02/2023 CBC WITH DIFFE RENTI AL/PL ATELE T RDW 13.3 % 11.5-1 4.5 Not Available [facility] [address] [place], [address], 09/03/2023 06:16:21 09/02/19 24 09/02/2023 CBC WITH DIFFE RENTI AL/PL ATELE T platelets 341 x10e3 /uL 150-45 0 Not Available [facility] [address] [place], [address], 09/03/2023 06:16:21 09/02/19 24 09/02/2023 CBC WITH DIFFE RENTI AL/PL ATELE T neutrophils 40 % notest b. Not Available [facility] [address] [place], [address], 09/03/2023 06:16:21 09/02/19 24 09/02/2023 CBC WITH DIFFE RENTI AL/PL ATELE T lymphs 51 % notest b. Not Available [facility] [address] [place], [address], 09/03/2023 06:16:21 09/02/19 24 09/02/2023 CBC WITH DIFFE RENTI AL/PL ATELE T monocytes 7 % notest b. Not Available [facility] [address] [place], [address], 09/03/2023 06:16:21 09/02/19 24 09/02/2023 CBC WITH DIFFE RENTI AL/PL ATELE T eos 1 % notest b. Not Available [facility] [address] [place], [address], 09/03/2023 06:16:21 09/02/19 24 09/02/2023 CBC WITH DIFFE RENTI AL/PL ATELE T basos 0 % notest b. Not Available [facility] [address] [place], [address], 09/03/2023 06:16:21 09/02/19 24 09/02/2023 CBC WITH DIFFE RENTI AL/PL ATELE T neutrophils (absolute) 2.7 x10e3 /uL 1.4-7. 0 Not Available [facility] [address] [place], [address], 09/03/2023 06:16:21 09/02/19 24 09/02/2023 CBC WITH DIFFE RENTI AL/PL ATELE T lymphs (absolute) 3.5 x10e3 /uL 0.7-3. 1 above high normal Not Available [facility] [address] [place], [address], 09/03/2023 06:16:21 09/02/19 24 09/02/2023 CBC WITH DIFFE RENTI AL/PL ATELE T monocytes(ab solute) 0.5 x10e3 /uL 0.1-0. 9 Not Available [facility] [address] [place], [address], 09/03/2023 06:16:21 09/02/19 24 09/02/2023 CBC WITH DIFFE RENTI AL/PL ATELE T eos (absolute) 0.1 x10e3 /uL 0.0-0. 4 Not Available [facility] [address] [place], [address], 09/03/2023 06:16:21 09/02/19 24 09/02/2023 CBC WITH DIFFE RENTI AL/PL ATELE T baso (absolute) 0.0 x10e3 /uL 0.0-0. 2 Not Available [facility] [address] [place], [address], 09/03/2023 06:16:21 09/02/19 24 09/02/2023 CBC WITH DIFFE RENTI AL/PL ATELE T immature granulocytes 0.3 % notest b. Not Available [facility] [address] [place], [address], 09/03/2023 06:16:21 09/02/19 24 09/02/2023 CBC WITH DIFFE RENTI AL/PL ATELE T immature grans (abs) 0.0 x10e3 /uL 0.0-0. 1 Not Available [facility] [address] [place], [address], 09/03/2023 06:16:21 09/02/19 24 09/02/2023 CBC WITH DIFFE RENTI AL/PL ATELE T NRBC 0 % 0-0 Not Available [facility] [address] [facility], [place], [address], 09/03/2023 06:16:21 09/02/19 24 09/03/2023 INTER PRETA TION: interpretati on: Commen t Not infec daniel with HCV unles s early or acute infec tion is suspe cted (whic h may be delay ed in an immun ocomp romis ed indiv idual ), or other evide nce exist s to indic ate HCV infec tion. Not Available [facility] ([facility]) [address] [facility], [place], [address], 09/03/2023 13:10:18 09/02/19 24 09/03/2023 HCV ANTIB SHILO RFX TO QUANT PCR HCV Ab Non Reacti ve nonrea ctive Not Available [facility] ([facility]) [address] [place], [address], 09/03/2023 13:10:19 09/02/19 24 09/03/2023 TSH RFX ON ABNOR MAL TO FREE T4 TSH 0.839 uIU/m L 0.450- 4.500 Not Available [facility] ([facility]) [address] [facility], [place], [address], 09/03/2023 13:10:20 09/02/19 24 09/03/2023 HEMOG LOBIN A1C hemoglobin A1C 5.5 % 4.8-5. 6 Predi abete s: 5.7 - 6.4 Diabe britt: >6.4 Glyce sarah contr ol for adult s with diabe britt: <7.0 Not Available [facility] ([facility]) [address] [place], [address], 09/03/2023 13:10:21 09/02/19 24 09/03/2023 HBSAG SCREE N HBsAg screen Negati ve negati ve Not Available [facility] ([facility]) [address] [place], [address], 09/03/2023 13:10:22 09/02/19 24 09/03/2023 RPR, RFX QN RPR/C ONFIR M TP RPR Non Reacti ve nonrea ctive Not Available [facility] ([facility]) [address] [place], [address], 09/03/2023 13:10:22 09/02/19 24 09/03/2023 HIV AB/P2 4 AG WITH REFLE X HIV Ab/P24 Ag screen Non Reacti ve nonrea ctive HIV Negat elena HIV-1 /HIV- 2 antib odies and HIV-1 p24 antig en were NOT detec daniel. There is no labor atory evide nce of HIV infec tion. Not Available [facility] ([facility]) [address] [place], [address], 09/03/2023 13:10:23 09/02/19 24 09/03/2023 NUSWA B VAGIN ITIS PLUS (VG+) atopobium vaginae Low - 0 score Not Available [facility] ([facility]) [address] [place], [address], 09/05/2023 06:15:45 09/02/19 24 09/03/2023 NUSWA B VAGIN ITIS PLUS (VG+) bvab 2 Low - 0 score Not Available [facility] ([facility]) [address] [place], [address], 09/05/2023 06:15:45 09/02/19 24 09/03/2023 NUSWA B [...] Drug Admin istra tion. Not Available [facility] ([facility]) [address] [place], [address], 09/05/2023 06:15:45 09/02/19 24 09/03/2023 NUSWA B VAGIN ITIS PLUS (VG+) rosie albicans, ARIK Negati ve negati ve Not Available [facility] ([facility]) [address] [place], [address], 09/05/2023 06:15:45 09/02/19 24 09/03/2023 NUSWA B VAGIN ITIS PLUS (VG+) rosie glabrata, ARIK Negati ve negati ve Not Available [facility] ([facility]) [address] [place], [address], 09/05/2023 06:15:45 09/02/19 24 09/04/2023 NUSWA B VAGIN ITIS PLUS (VG+) trich vag by ARIK Negati ve negati ve Not Available [facility] ([facility]) [address] [place], [address], 09/05/2023 06:15:45 09/02/19 24 09/04/2023 NUSWA B VAGIN ITIS PLUS (VG+) chlamydia trachomatis, ARIK Negati ve negati ve Not Available [facility] ([facility]) [address] [facility], [place], [address], 09/05/2023 06:15:45 09/02/19 24 09/04/2023 NUSWA B VAGIN ITIS PLUS (VG+) neisseria gonorrhoeae, ARIK Negati ve negati ve Not Available [facility] ([facility]) [address] [facility], [place], [address], 09/05/2023 06:15:45 09/02/19 24 09/03/2023 IGP, APTIM A HPV, RFX 16/18 ,45 HPV aptima Negati ve negati ve This nucle ic acid ampli ficat ion test detec ts fourt een high- risk HPV types (16,1 8,31, 33,35 ,39,4 5,51, 52,56 ,58,5 9,66, 68) witho ut diffe renti ation . Not Available [facility] ([facility]) [address] [facility], [place], [address], 09/05/2023 10:16:49 09/02/19 24 09/05/2023 IGP, APTIM A HPV, RFX 16/18 ,45 diagnosis: Commen t NEGAT ELENA FOR INTRA EPITH ELIAL LESIO N OR MALIG MURPHY . FUNGA L ORGAN ISMS MORPH OLOGI AMBROSE CONSI STENT WITH HARSHAD DA SPECI ES ARE PRESE NT. Not Available [facility] ([facility]) [address] [facility], [place], [address], 09/05/2023 10:16:49 09/02/19 24 09/05/2023 IGP, APTIM A HPV, RFX 16/18 ,45 specimen adequacy: Commen t Satis facto ry for evalu ation . Endoc ervic al and/o r squam ous metap lasti c cells (endo cervi johanna compo nent) are prese nt. Not Available [facility] ([facility]) [address] [place], [address], 09/05/2023 10:16:49 09/02/19 24 09/05/2023 IGP, APTIM A HPV, RFX 16/18 ,45 clinician provided ICD10: Amira velásquez Z12.4 Not Available [facility] ([facility]) [address] [place], [address], 09/05/2023 10:16:49 09/02/19 24 09/05/2023 IGP, APTIM A HPV, RFX 16/18 ,45 performed by: Amira gallegos, Radha velásquez (ASCP ) Not Available [facility] ([facility]) [address] [place], [address], 09/05/2023 10:16:49 09/02/19 24 09/05/2023 IGP, APTIM A HPV, RFX 16/18 ,45 . . Not Available [facility] ([facility]) [address] [place], [address], 09/05/2023 10:16:49 09/02/19 24 09/05/2023 IGP, APTIM [...] ts do occur . Not Available [facility] ([facility]) [address] [facility], [place], [address], 09/05/2023 10:16:49 09/02/19 24 09/05/2023 IGP, APTIM A HPV, RFX 16/18 ,45 test methodology: Commen t This liqui d based ThinP rep(R ) pap test was grace jasso with the use of an image guide arabella mendoza Not Available [facility] ([facility]) [address] [facility], [place], [address], 09/05/2023 10:16:49 09/02/19 24 09/05/2023 IGP, APTIM A HPV, RFX 16/18 ,45 HPV genotype reflex Commen t Crite bo not met, HPV Genot ype not perfo rmed. Not Available [facility] ([facility]) [address] [facility], [place], [address], 09/05/2023 10:16:49 09/02/19 24 09/02/2023 pregn sera [...] 09/02/2023 urina lysis , dipst ick Specific Mouth Of [place] 1.015 Not Available In-Off ice Order Internal [...] compl ete No observ ation record ed. [id number] [place], [address], 02/25/2017 10:55:50 Result Notes None recorded. Problems Name Problem SNOMED Code Status Onset Date Resolution Date Notes Provider Name and Address Organization Details Recorded Time Morbid obesity 124637480 Active Lydia Rodriguez MD Attn: Ardenlaura valenzuela,[address] [facility], [place], [address], [place] - [facility] 4 16:42:16 Mixed anxiety and depressi ve disorder 388508028 Active Lydia Rodriguez MD Attn: Ardenlaura valenzuela,[address] [facility], [place], [address], [place] [facility] 4 16:41:51 Epilepsy 43527726 Active Lydia Rodriguez MD Attn: Kristin bianca,[address] [facility], [place], [address], [place] [facility] 4 16:40:51 Contrace ption care Completed 09/05/2023 patient had a baby 8 months ago would like birthcont rol Lydia Rodriguez MD Attn: Kristin bianca,[address] [facility], [place], [address], [place] [facility] 4 16:40:41 Bacteria l vaginosi s 161034872 Active Lydia Rodriguez MD Attn: Kristin bianca,[address] [facility], [place], [address] [facility] 4 16:39:53 Polycyst ic ovary syndrome 833894082 Active 2023 Lydia Rodriguez MD Attn: Kristin bianca,[address] [facility], [place], [address], [place] [facility] 4 16:42:12 Venereal disease screenin g Active 2023 Lydia Rodriguez MD Attn: Kristin bianca,[address] [facility], [place], [address] [facility] 4 16:39:13 Obesity 831155453 Active 2023 Lydia Rodriguez MD Attn: Kristin bianca,[address] [facility], [place], [address] [facility] 4 16:42:14 Mood disorder 42011592 Active 2023 Lydia Rodriguez MD Attn: Kristin valenzuela,[address] [facility], [place], [address], [place] [facility] 4 16:42:22 Insomnia 654766472 Active 2023 Lydia Rodriguez MD Attn: Kristin valenzuela,[address] [facility], [place], [address], [place] [facility] 4 16:41:01 Dysuria 36431182 Active 2023 Lydia Rodriguez MD Attn: Kristin valenzuela,[address] [facility], [place], [address], [place] [facility] 4 16:40:46 Fatigue 82287339 Active 2023 Lydia Rodriguez MD Attn: Kristin valenzuela,[address] [facility], [place], [address], [place] [facility] 4 16:40:56 Bradycar sue 97775827 Active 2023 Lydia Rodriguez MD Attn: Kristin valenzuela,[address] [facility], [place], [address], [place] [facility] 4 16:39:29 Skin irritati on 546970817 Active 2023 Lydia Rodriguez MD Attn: Kristin valenzuela,[address] [facility], [place], [address], [place] [facility] 4 16:42:09 Vaginal discharg e 762796754 Active 2023 Lydia Rodriguez MD Attn: Kristin valenzuela,[address] [facility], [place], [address], [place] [facility] 4 16:42:04 Screenin g for malignan t neoplasm of cervix Active 2023 Lydia Rodriguez MD Attn: Kristin valenzuela,[address] [facility], [place], [address], [place] [facility] 4 16:39:39 Gynecolo gic examinat ion Active 2023 Lydia Rodriguez MD Attn: Kristin valenzuela,[address] [facility], [place], [address], [facility] 4 16:39:42 Contrace ption care Active 2023 Lydia Rodriguez MD Attn: Kristin valenzuela,[address] [facility], [place], [address], [facility] 4 16:40:41 Problem Notes None recorded. Procedures Surgical History Date Name Laterality Status Provider Name and Address Organization Details Recorded Time 7 IUD Insertion completed Ritu Carbajal MD Attn: Accounting, [facility], [place], [address], [facility] 10/24/2016 11:42:40 5 Caesarean Section completed Juan Belcher MA [facility] 06/29/2015 15:25:51 Imaging Results None recorded. Procedure Notes None recorded. Medical Equipment None Reported. Allergies Allergen ID Allergen Name Allergen Category Reaction Reaction Severity Criticality Documentation Date Start Date Code Code System Note Provider Name and Address Organization Details Recorded Time 63216 codeine medicatio n nausea Not available Not available 06/29/2015 2670 RxNorm Juan Belcher MA null, [facility] 5 15:25:51 Medications Name Sig Start Date [...] weight Respiratory rate Body temperature Oxygen saturation Heart rate Systolic And Diastolic Provider Name and Address Organization Details Last Updated DateTime 157.48 cm 47.4 kg/m2 909847. 17 g 16 /min 98.6 [degF] 97 % 58 /min 123/76 mm[Hg] Alayna Raymond MA [facility] 4 10:55:17 Date Recorded Body height Body weight Body mass index (BMI) Systolic And Diastolic Provider Name and Address Organization Details Last Updated DateTime 10/17/2016 157.48 cm 383377.05 g 46.6 kg/m2 110/68 mm[Hg] Marguerite Haley RN [facility] 10/17/2016 11:04:16 Date Recorded Body height Provider Name an d Address Organization Details Last Updated DateTime 10/24/2016 157.48 cm Veda Gordon MA [facility] 10/24/2016 10:14:53 Date Recorded Body weight Body mass index (BMI) Systolic And Diastolic Provider Name and Address Organization Details Last Updated DateTime 10/24/2016 396228.65 g 46.8 kg/m2 126/70 mm[Hg] Marguerite Haley RN [facility] 10/24/2016 10:28:23 Date Recorded Body height Body mass index (BMI) Body weight Heart rate Respiratory rate Body temperature Systolic And Diastolic Provider Name and Address Organization Details Last Updated DateTime 4 157.48 cm 45.3 kg/m2 787718. 47 g 80 /min 18 /min 98.3 [degF] 116/79 mm[Hg] Shy Alexander MA [facility] 4 12:17:19 Date Recorded Body height Body mass index (BMI) Body weight Systolic And Diastolic Provider Name and Address Organization Details Last Updated DateTime 02/05/2017 157.48 cm 48.1 kg/m2 442294.94 g 128/80 mm[Hg] Marguerite Haley RN [facility] 02/05/2017 11:50:35 Social History Question Answer Notes LastModified by Organizat ion Details LastModified Time Tobacco Smoking Status Former Smoker Juan Belcher MA null, [facility] 06/29/2015 15:25:51 Do You Have An Advance Directive? Yes [email or web address] Information n ot available 09/02/2023 What Is Your Level Of Caffeine Consumption? Moderate [email or web address] Information not available 06/29/2015 In The 14 Days Before Symptom Onset, Have You Had Close Contact With A Laboratory-confirm ed COVID-19 While That Case Was Ill? No [email or web address] Information n ot available 09/02/2023 In The 14 Days Before Symptom Onset, Have You Had Close Contact With A Person Who Is Under Investigation For COVID-19 While That Person Was Ill? No Information not available 09/02/2023 Have You Been To An Area Known To Be High Risk For COVID-19? No Information not available 09/02/2023 What Type Of Diet Are You Following? REGULAR [email or web address] Information n ot available 06/29/2015 What Was [...] t available 09/02/2023 General Stress Level Low [email or web address] Information not available 06/29/2015 Has Tobacco Cessation [...] is your level of alcohol consumption? Occasional Information not available 06/29/2015 Are you currently employed? No Information not available 09/02/2023 Do you or have you ever used e-cigarettes or vape? Current user of electronic cigarettes occasional Information not available 09/02/2023 What is your exercise level? None [email or web address] Information not available 06/29/2015 Mental Status None recorded. Family History Relationship Description Onset Age of this Age Resolved Age Notes LastModified by Organization Details LastModified Time Unspecified Relation Harmful pattern of use of alcohol Not available 2014 15:25:51 Unspecified Relation Depressive disorder [email or web address] Not available 2014 15:25:51 Unspecified Relation Heart disease [email or web address] Not available 2014 15:25:51 Unspecified Relation Hypercholest erolemia [email or web address] Not available 2014 15:25:51 Unspecified Relation Hypertensive disorder [email or web address] Not available 2014 15:25:51 Maternal Grandmother Osteoporosis [email or web address] Not available 06/29/2015 15:25:51 Maternal Grandfather Carcinoma in situ of prostate [email or web address] Not available 2014 15:25:51 Unspecified Relation Aneurysm [email or web address] Not available 2014 15:25:51 Medical History Condition Response Coronary Artery Disease N Other N Atrial Fibrillation N High Blood Pressure N Kidney or Bladder Problems N Thyroid Problems N GI Problems N Depression Y COPD N Blood Clots N Skin Problems N Anemia N Heart Attack ([place]) N Anxiety Disorder Y Diabetes N Muscle, Joint, or Bone Problems N Seizures/Epilepsy Y Acid Reflux (GERD) N Cancer N Stroke N Asthma N Allergies Y High Cholesterol N Hepatitis N Liver Disease N Headaches Y Heart Failure N Osteoporosis N Gynecological History Statement/Question Response Current Control Method None Date of LMP 01/15/2024 Desired Control Method IUD On BCP's at Conception? N Obstetrics History GPAL:G 1 P 1 0 0 1 Type Value Full Term 1 Living 1 Total 1 Immunizations Vaccine Type Date Status Note Provider Nam e and Address Organization Details Recorded Time Tdap 5 completed Juan Belcher MA [facility], [place] - [facility] 06/29/2015 15:25:51 Influenza, split virus, quadrivalent, preservative 5 completed Not Available [facility] 07/31/2019 02:41:30 Past Encounters Encounter ID Performer Location Encounter Start Date Encounter Closed Date Diagnosis/Indication Diagnosis SNOMED-CT Code Diagnosis ICD10 Code Diagnosis IMO Codes Diagnosis Note [id number] RAMOS Walls (Adult Med) [address] [place] [address] 06/29/2015 14:48:25 06/30/2015 14:33:32 Adult health examination 590647118 Z00.01 Encouraged well balanced meals, active lifestyle and routine vision/den brodie/nurse obgyn apts. Administra tion of influenza vaccine 97878464 Z23 flu shot today Morbid obesity 560894252 E66.01 Get labs. Diet and exercise. Patient encouraged to change diet to reduce caloric intake. 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 Coping techniques to continue. Epilepsy 61322468 G40.90 9 Continue seeing neurologis t. Topiramate to continue per neuro. No seizures in >5 years. [id number] MD Manuel Gaytan ([place] [address]) [address] [facility] [place] [address] 08/10/2015 10:52:12 08/11/2015 09:20:38 Gynecologic examination 29811031 Z01.419 Contraception care 30994 5005 Z30.40 [id number] MD Manuel Gaytan ([place] [address]) [address] [place] [address] 10/17/2016 10:45:21 10/17/2016 18:03:36 Vaginal discharge 387420137 N89.8 Gynecologi c examination 78252703 Z01.419 Morbid obesity 216583477 E66.01 [id number] MD Manuel Gaytan ([place] [address]) [address] [facility] [place] [address] 10/24/2016 10:09:43 10/24/2016 13:34:45 Insertion of intrauterine contraceptive device 24271543 Z30.430 IUD check 839783306 Z30. 431 Contraception care 94397 5005 Z30.40 [id number] MD Manuel Gaytan ([place] [address]) [address] [facility] [place] [address] 02/05/2017 11:40:05 02/05/2017 14:08:00 Venereal disease screening 998545105 Z11.3 Pain in pelvis 68943462 R10.2 [id number] MD Manuel Fox [address] [place] [address] 09/02/2023 10:04:49 09/16/2023 09:26:10 Gynecologic examination 82528389 Z01.419 Routine gynecologi c exam. - Pap smear performed for routine screening- Nuswab for abnormal discharge- Mood changes as below- Contracept elena care as below- Urine test as below Screening for malignant neoplasm of cervix 218370923 Z12.4 Pap smear and HPV with reflex performed today. Skin irritation 11950509 7 L30.9 Intermitte nt irritation under breasts, improved with miconazole . Also with irritation around groin after shaving. No acute findings. - Promote dryness to skin- Continue OTC miconazole as needed- Plan to try waxing instead of shaving Bradycardia 47254663 R00 .1 Heart rate 58. Vital signs otherwise stable. Unusual given phentermin e usage. May be thyroid dysfunctio n. - TSH Obesity 411899487 E66.9 Patient reports phentermin e previously prescribed for weight loss, requests refill. Also requests further weight loss counsellin g. Will refill short course of phentermin e and follow-up for further weight loss counsellin g and medication management . Dysuria 68754201 R30.0 Difficulty maintainin g stream of urine. No pain or burning with urination, no hematuria, no abnormal odor. - urine dipstick Venereal d isease screening 548954035 Z11.3 Venereal disease screening as per USPFTF guidelines . Verbal consent aquired. Vaginal discharge 205119 006 N89.8 Abnormal vaginal discharge and odor. Will rule out BV, trichomona s, yeast. - Nuab Contraception care 70703 5005 Z30.40 Pt desires contracept ion for [...] increased estrogen formulatio n if refractory Insomnia 402241322 G47.0 0 Sleep onset and maintenanc e. Poor sleep hygeine, has TV on all night. - Counselled on sleep hygeine and efficiency Mood disorder 23526219 F 37 Mixed anxiety and depression , worse in 2 weeks leading up to period. Suspect PMDD. No SI or HI. Significan t impact on work and personal life. Already establishe d with counsellor . - Combined OCP as above- Continue escitalopr am 20 mg daily- Continue outside counsellor Fatigue 25210975 R53.83 DDX anemia, thyroid dysfunctio n, depression , PMDD, CARINA. - TSH as above- Check CBC to assess for anemia- Management of mood symptoms and insomnia as below Polycystic ovary syndrome 963281635 E28.2 Pt reports history of PCOS, on metformin. Will refill and discuss further medication management at follow-up. [id number] MD Manuel ROTH 14 IM [address] [facility] [address] [place] [address] 02/02/2024 12:02:58 02/05/2024 15:15:21 Breast lump 61622019 N63.0 right lateral breast lump. No systemic symptoms. History of mass with excision. Differenti als include possible fibrocysti c changes versus possible malignancy . Less likely infectious .Patient between ages of 30-39.Will start with mammogram. Return precaution s given.dago rds from last breast biopsy requested. Body mass index 40+ - severely obese 983763559 Z68.42 BMI 45.Follow up with PCPRecomme nd continued lifestyle modificati ons & exercise >150mins/w k Health Concerns Section Related Observation LastModified by Organization Detai ls LastModified Time None Recorded Concern Status LastModified by Organization Details LastModified Time None Recorded Advance Directives Directive Y: Payers Insurance Date Sequence Insurance Name Policy Number Policy Dolan Covered Member ID Dolan Member ID Guarantor Name 01/23/2024 2 [facility] [facility] - DOS PRIOR TO 2025 (MEDICAID REPLACEMENT - HMO) Marleny Story [id number] Marleny Story 09/01/2023 1 [facility] (MEDICAID HMO) Marleny Story [id number] Marleny Story 09/01/2023 1 [facility] Marleny Story [id number] Marleny Story 02/02/2024 1 [place] [employer] Marleny Story [id number] Marleny Story 09/01/2023 1 [facility] - DOS PRIOR TO 2025 (MEDICAID REPLACEMENT - HMO) [id number] Marleny Story [id number] Marleny Story 09/01/2023 1 [facility] - DUAL ELIGIBLE (MEDICARE REPLACEMENT/AD VANTAGE - HMO) [id number] Marleny Story [id number] Marleny Story Notes Date Note Type Note [...] contraception. Ritu Carbajal MD Attn: Accounting,[address] [place], [address], [facility] 10/17/2016 18:03:30 10/25/19 17 text/htm l Risks [...] cramps. Ritu Carbajal MD Attn: Accounting,[address] [place], [address], [facility] 10/24/2016 13:34:38 02/06/20 17 text/htm l Pelvic [...] patient reportssharpanddull. For severity, patient reportspain level 04/22. For context, patient reportswearing iud. For alleviating factors, patient reportsnone. For aggravating factors, patient reportsnone. 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 Reports painful, heavy period on 08/04/23, [...] not on period. Recently moved back to [facility] after living in [place] for several years. Lost job, has been [...] safe. Angela Corona MD Attn: Accounting,[address] [place], [address], [facility] 09/15/2023 12:45:51 02/02/20 24 text/htm l 35 [...] 14. HIRA DELATORRE MD Attn: Accounting,[address] [place], [address], [facility] 02/05/2024 11:41:54 OBGyn Episode Ob Episode Information Episode Created Date Number of Fetuses Patient Bloodtype Patient rh Status Prepregnancy Weight lbs Domestic Partner Domestic Partner Phone Father Name Cadmium Liquor Maker Status 09/02/19 24 1 CLOSED Fetus Data First Name Last Name Admitted to NICU Weight (g) Sex Living Outcome Pediatric Complications Fetus ID Race Codes Race Delivery Type [id number] Jaxon Calculation Initial Jaxon Date Initial Exam [...]
--- OUTSIDE RECORDS SUMMARY | 2025-07-03 12:19 | XMS_ITS | Clinical Summary ---
Author Organization [facility] Address [address] [place] [address] Care Team Providers Care Down Filler Name Role Phone Jayden Diallo MD Primary Care Provider [phone] Allergies Active Allergy Reactions Criticality Noted Date [...] on file Legal Sex Female 12:46 AM MILK ROUTE DELIVERER Gender Identity Not on file Sexual Orientation Not on file Last Filed Vital Signs Vital Sign Reading Time Taken Comments Blood Pressure 105/62 06/09/2024 4:37 PM MILK ROUTE DELIVERER Pulse 60 06/09/2024 4:37 PM MILK ROUTE DELIVERER Temperature 36.8 C (98.2 F) 06/09/2024 4:37 PM MILK ROUTE DELIVERER Respiratory Rate 20 06/09/2024 4:37 PM MILK ROUTE DELIVERER Oxygen Saturation 99% 06/09/2024 4:37 PM MILK ROUTE DELIVERER Inhaled Oxygen Concentration - - Weight 110.2 kg (242 lb 14.4 oz) 06/09/2024 4:37 PM MILK ROUTE DELIVERER Height 71.1 cm (2' 4) 06/09/2024 4:37 PM MILK ROUTE DELIVERER Body Mass Index 217.83 06/09/2024 4:37 PM MILK ROUTE DELIVERER Plan of Treatment Health Maintenance Due Date [...] complete this topic Insurance IDPA Care Teams Down Filler Relationship Specialty Start Date End Date Jayden Diallo MD [address] [place] [address] PCP - General Family Medicine 06/09/24
--- OUTSIDE RECORDS SUMMARY | 2025-07-03 12:19 | XMS_ITS | Encounter Summary ---
Author Organization [facility] Address [address] [place] [address] Phone Care Team Providers Care Marine Chronometer Assembler Name Role Phone Sherie Wright Primary Care Pro vider Marguerite Ponce GEOTHERMAL OPERATIONS ENGINEER, FUNERAL ARRANGEMENT DIRECTOR Unavailable +- [phone] Reason for Visit * Reason Comments Medication Refill Encounter Details Date Type Department Care Team (Late st Contact Info) Description 11/14/2023 Refill [facility] - [facility] [address] [place] [address] Sherie Wright, [facility] [address] [place] [address] Medication Refill Social History Tobacco Use Types Packs/Day Years Used Date Smoking Tobacco: Former Cigarettes Smokeless Tobacco: Never Alcohol Use Standard Drinks/Week Comments Yes 0 (1 standard drink = 0.6 oz pur e alcohol) [facility] Utilities Answer Date Recorded In the past 12 months has [email or web address], gas, oil, or water [employer] threatened to shut off services in your [...] [facility] or restoration services? More than 4 times per year 07/16/2023 Do you belong to any clubs o r organizations such as jainism groups, unions, fraternal or athletic groups, or [...] medical care, and heating? Somewhat hard 07/16/2023 [facility] [...] Sex Assigned at Female 07/04/2023 10:09 AM HERBICIDE SPRAYER Legal Sex Female 1:54 PM HERBICIDE SPRAYER Gender Identity Female 07/04/2023 10:09 AM HERBICIDE SPRAYER Sexual Orientation Straight 07/04/2023 10 :09 AM HERBICIDE SPRAYER documented as of this encounter Miscellaneous Notes [...] Office Visit Sherie Wright PAC [facility] 10/23/23 Office Visit Sherie Wright PAC [facility] 09/29/23 Office Visit Sherie Wright PAC [facility] 07/21/23 Telemedicine Sherie Wright PAC [facility] 07/18/23 Office Visit Sherie Wright PAC [facility] 07/04/23 Office Visit Sherie Wright PAC [facility] Showing recent visits within past 365 days and meeting all other requirements Future Appointments Date Type Provider Dept 01/16/24 Appointment Sherie Wright PAC [facility] Showing future appointments within next 90 days and meeting all other requirements Passed - No active on record documented in this encounter Plan of Treatment Not on file documented as of this encounter Goals Goal Patient Goal Type Associated Problems Recent Progress Patient-Stated? Author process stressors Behavioral Health Improving( 11:03 AM CDT) No Cynthia Wiggins, NETWORK COORDINATOR Note: Goal/Objective: Decrease anxiety and depression through processing difficulties. Anticipated Time Frame for Goal Completion: 6 months Goal Reviewed with: patient Readiness to change: Ready to change Department associated with goal: [facility] Steps to [...] on filedocumented in this encounter Care Teams Marine Chronometer Assembler Relationship Specialty Start Date End Date Sherie Wright PAC PCP - General Physician Physician Office Assistant 07/04/23 04/14/24 Marguerite Ponce APRN, FUNERAL ARRANGEMENT DIRECTOR [address] [place] [address] Nurse Practitioner Advanced Practice Nurse 07/28/23 documented as of this encounter
[2025-07-03 12:26] VITALS: BP 127/66; PULSE 82; RESP 16; TEMP 36.2; O2SAT 100
--- NOTE | 2025-07-03 12:27 | ED.URI ---
HPI - URI/Sore Throat General Chief Complaint: Upper Respiratory Infection Stated Complaint: Sore Throat/Body Aches Time Seen by Provider: 07/03/25 12:27 Source: patient, RN notes reviewed and old records reviewed Mode of arrival: ambulatory Limitations: no limitations History of Present Illness HPI Narrative: 34 year old female who [facility] with complaints of cough which is productive and body aches with some soreness to her upper back with cough.since yesterday Patient reports no sore throat or ear pain or any known fevers.Patient reports that cough is productive of thick greenish phlegm denies any tobacco use. MD elicited complaint: cough and other (upper back gabriel and body aches) Pain scale (0-10): 5 Treatments prior to arrival: ibuprofen and other (cough drops) Related Data Home Medications ?Medication ?Instructions ?Recorded ?Confirmed ?Last Taken ?Type escitalopram oxalate 20 mg tablet 20 mg PO DAILY 03/04/23 06/13/24 Unknown History lamotrigine 200 mg tablet 200 mg PO BID 03/04/23 06/13/24 Unknown History dextroamphetamine-amphetamine 20 04/10/25 Unknown History mg tablet levetiracetam 250 mg tablet mg PO 04/10/25 Unknown History propranolol 40 mg tablet mg 04/10/25 Unknown History famotidine 20 mg tablet mg 05/22/25 Unknown History levonorgestrel 0.15 mg-ethinyl 05/22/25 Unknown History estradiol 30 mcg tablets,3 mos pack(91) Allergies Allergy/AdvReac Type Severity Reaction Status Date / Time codeine AdvReac Mild Nausea and Verified 06/20/25 19:33 Vomiting Review of Systems Review of Systems: CONSTITUTIONAL: Reports malaise, no chills, sweats, or fever. EYES: Denies visual changes, redness, or discharge. ENT: Reports rhinorrhea, congestion, sinus pain, no otalgia and some sore throat. CARDIOVASCULAR: Denies chest pain, palpitations, or edema. RESPIRATORY: Reports productive cough.? Denies dyspnea.reports upper back pain with cough GASTROINTESTINAL: Denies abdominal pain, nausea, vomiting, diarrhea SKIN: Denies rash or itching. MUSCULOSKELETAL: Denies myalgia. NEUROLOGIC: Denies headache. All systems reviewed & are unremarkable except as noted in HPI and below PMFSH Past Medical History Medical History (Updated 07/04/25 @ 21:34 by Maira Bond APRN) GERD (gastroesophageal reflux disease) ADHD (attention deficit hyperactivity disorder) Anxiety Hiatal hernia Juvenile myoclonic epilepsy Surgical History Surgical History History of cholecystectomy Previous section Family History Family History Mother Family history non-contributory Social History Social History Smoking status: Never smoker Alcohol intake: current Alcohol use details: rare use Substance use type: does not use Gender identity (if verbalized by the patient): Female Comments At time of signature, agree with nursing past medical, surgical, social and family history. There is no relevant family history pertinent to the presenting complaint Exam Narrative: GENERAL: Well-appearing, well-nourished, and in no acute distress. HEAD: Normocephalic EYES: PERRLA, conjunctivae clear ENT: Nares clear, turbinates edematous and erythematous, clear discharge. Mucous membranes moist. TM pearly licona with dull light reflex bilaterally; no tragal tenderness. Oropharynx erythematous without lesions. Tonsils not enlarged and without exudate, no drooling, no hoarseness, no trismus, uvula midline.post nasal drainage NECK: Supple. No lymphadenopathy CHEST: Clear to auscultation, breath sounds equal. No wheezing, rhonchi, rales, or stridor. No respiratory distress, speaks in full sentences.productive cough with some uppr back discomfort with cough, SAO2 100% on room air HEART: Regular rate and rhythm. No murmur heard. SKIN: Warm, dry, no rash. NEURO: Alert and oriented x3. PSYCH: Normal mood and affect Course Course Level of Care: Express Care Visit Vital Signs Vital signs: Vital Signs Temperature 36.2 C L 07/03/25 12:26 Pulse Rate 82 07/03/25 12:26 Respiratory Rate 16 07/03/25 12:26 Blood Pressure 127/66 07/03/25 12:26 Pulse Oximetry 100 07/03/25 12:26 Oxygen Delivery Room Air 07/03/25 12:26 Temperature 36.2 C L 07/03/25 12:26 Pulse Rate 82 07/03/25 12:26 Respiratory Rate 16 07/03/25 12:26 Blood Pressure 127/66 07/03/25 12:26 Pulse Oximetry 100 07/03/25 12:26 Oxygen Delivery Room Air 07/03/25 12:26 reviewed [facility] Narrative Medical decision making narrative: Patient with URI symptoms and acute cough, will treat with RX prednisone with instruction on symptoms control with OTC medications. Patient is aware of diagnosis, understands and agrees to treatment plan. Anticipatory guidance given. Patient agrees to follow-up as directed and is aware of reasons to seek care at the emergency department.i Portions of this record may have been created with voice recognition software Differential Diagnosis Differential Diagnosis: Differential diagnostic considerations for upper respiratory infection include upper respiratory infection, croup, otitis media, sinusitis, viral infection, bronchitis, influenza, pharyngitis, strep, uvulitis.? Lab Data [facility] Lab Attestation statement: I personally reviewed the patient's lab results. Lab results narrative: strep screen negative, culture sent, COVID antigen negative. Influenza A&B negative Labs: Lab Results 07/03/25 07/03/25 07/03/25 Range/Units 12:44 12:57 12:57 POC Influenza A Ag Negative (Negative) POC Influenza B Ag Negative (Negative) POC SARS CoV-2 Ag Negative (Negative) POC Grp A Strep Screen Negative Negative (Negative) reviewed Critical Care Time Critical Care Time Critical Care Time: No Discharge Plan Discharge Clinical Impression: Acute cough Upper respiratory infection Qualifiers: URI type: unspecified URI Qualified Code(s): J06.9 - Acute upper respiratory infection, unspecified Patient Disposition: Home Condition: Stable Instructions: Upper Respiratory Infection (DC), Acute Cough (ED) Additional Instructions: Increase fluids especially juices and water [id number] cough and cold medicine of your choice for your symptoms recommend Delsym or Robitussin cough syrup Zyrtec Claritin or Radha daily Tylenol or ibuprofen for any fever pain Steroids as directed--take with food heat to the face 20-30 minutes 4-6 times a day for pain Salt water gargles, throat lozenges or throat sprays as desired If your symptoms persist, change or worsen significantly before you can contact your personal physician then please, without delay, go to the emergency department for further evaluation. Follow-up with PCP in 7-10 days or sooner if needed Follow up with PCP soon in regards to your blood pressure which is elevated above threshold for referral. Blood pressure above 120/80 may indicate pre-hypertension. 127/66 Patient Language: Hungarian Prescriptions: New prednisone 20 mg tablet 20 mg PO BID Qty: 10 0RF Rx Instructions: take in am and early pm with food for 5 days No Action lamotrigine 200 mg tablet 200 mg PO BID escitalopram oxalate 20 mg tablet 20 mg PO DAILY propranolol 40 mg tablet levetiracetam 250 mg tablet PO dextroamphetamine-amphetamine 20 mg tablet famotidine 20 mg tablet levonorgestrel-ethinyl estrad 0.15 mg-30 mcg (91) tablets,dose pack,3 month ofloxacin 0.3 % drops 10 drp LEFT EAR DAILY 7 Days Qty: 10 0RF Follow-up/Referrals: Jayden Diallo MD [Primary Care Provider, [facility]] Time of Disposition: 13:03 Quality Yessy Coma Scale Eyes: Open Verbal: Oriented and Alert Motor: Follows Commands Yessy Coma Total Score: 15
[2025-07-03 12:45] LABS: EDCOVIDSCREEN Negative (Negative); EDINFLUASCREEN Negative (Negative); EDINFLUBSCREEN Negative (Negative)
[2025-07-03 12:58] LABS: EDSTREPNEGPOS1 Negative (Negative)
[2025-07-03 12:59] LABS: EDSTREPNEGPOS1 Negative (Negative)
== END 2025-07-03 13:07 | disposition home or self-care (01) ==
PROVIDERS: Emergency Provider Registered Nurse; PCP Emergency Medicine
DX: R05.1 Acute cough (principal); J06.9 Acute upper respiratory infection, unspecified; Z20.822 Contact with and (suspected) exposure to COVID-19; G40.B09 Juvenile myoclonic epilepsy, not intractable, without status epilepticus; K21.9 Gastro-esophageal reflux disease without esophagitis; F90.9 Attention-deficit hyperactivity disorder, unspecified type; F41.9 Anxiety disorder, unspecified
CPT/HCPCS: 87081; 87426; 87804; 87880; 99213; G0463